=== PATIENT | male | born 1945 | race Caucasian/White ===

== ENCOUNTER → 2018-04-05 12:48 | Outpatient (CLI) | payer MEDICARE, OTHER, SELFPAY ==
--- NOTE | 2018-04-05 12:52 | CDU_ITS ---
Reason For Study: Visual disturbance Rt. Velocities/BP Lt. Velocities/BP Prox CCA 103.0/18.8 cm/sec. Prox CCA 90.9/21.7 cm/sec. Mid CCA 89.1/17.0 cm/sec. Mid CCA 95.0/19.9 cm/sec. Dist CCA 84.4/18.2 cm/sec. Dist CCA 90.3/21.7 cm/sec. Prox ICA 74.5/24.6 cm/sec. Prox ICA 73.9/23.5 cm/sec. Mid ICA 61.9/19.9 cm/sec. Mid ICA 92.0/28.7 cm/sec. Dist ICA 84.8/25.3 cm/sec. Dist ICA 103.0/39.9 cm/sec. Rt. ICA/CCA = .95. Lt. ICA/CCA = 1.1. Prox ECA 143.0/19.6 cm/sec. Prox ECA 120.0/14.1 cm/sec. Rt. Vert. 59.8/18.2 cm/sec. Lt. Vert. 60.4/19.9 cm/sec. Right Extracranial There is intimal thickening but no significant atherosclerotic plaque noted in the right common carotid artery. There is intimal thickening but no significant atherosclerotic plaque noted in the right internal carotid artery. There is no significant atherosclerotic plaque noted in the right external carotid artery. Antegrade flow is noted in the right vertebral artery. There is heterogeneous, irregular atherosclerotic plaque noted in the right bulb. Left Extracranial There is intimal thickening but no significant atherosclerotic plaque noted in the left common carotid artery. There is heterogeneous, irregular atherosclerotic plaque noted in the left internal carotid artery. There is intimal thickening but no significant atherosclerotic plaque noted in the left external carotid artery. Antegrade flow is noted in the left vertebral artery. Procedure Carotid Duplex [id number]. Exam performed in department. Interpretation Summary No significant atherosclerotic plaque or stenosis noted in the right internal carotid artery. Mild (<50%) stenosis left extracranial internal carotid. Flow within the vertebral arteries is antegrade bilaterally. A small amount of heterogeneous, irregular atherosclerotic plaque is noted in the right carotid bulb, which does not appear to be hemodynamically significant. Ordering Physician: Zeke Houser Referring Physician: Zeke Houser Performed By: Mirtha Villanueva RVT
== END ==
PROVIDERS: Family Provider Nurse Practitioner; PCP Nurse Practitioner; Visit Provider Ophthalmology
DX: H53.10 Unspecified subjective visual disturbances (principal); H53.15 Visual distortions of shape and size
CPT/HCPCS: 93880

== ENCOUNTER → 2018-05-12 07:03 | Outpatient (CLI) | payer MEDICARE, OTHER, SELFPAY ==
--- NOTE | 2018-05-12 07:07 | CT_ITS ---
STUDY: CT CHEST WITHOUT CONTRAST REASON FOR EXAM: Male, 73 years old. RT LUNG MASS RADIATION DOSAGE (If Supplied By Facility): CTDIvol = ( 14.28 ) mGy, DLP = ( 528.02 ) mGycm TECHNIQUE: Transaxial imaging was performed without the administration of intravenous contrast material. Individualized dose optimization techniques were used for this CT. COMPARISON: 04.17.15 FINDINGS: There is no pneumothorax. The lungs are normal. There is no demonstrated pleural abnormality. There are calcifications of the coronary arteries. Normal mediastinum. There are degenerative changes of the shoulders. Stable mediastinal lymph node calcification. Normal pulmonary arteries. There is atherosclerotic calcification of the aortic arch with tortuosity and elongation of the aortic arch and descending thoracic aorta. There are multi-level degenerative changes of the thoracic spine. Benign stable appearing calcifications of the spleen. CT/Chest without Contrast IMPRESSION: There are no acute findings. Lung mass is not visualized. Electronically Signed: Peter Martell MD at 19:53 EDT , Service support ,
== END ==
PROVIDERS: Family Provider Nurse Practitioner; PCP Nurse Practitioner; Visit Provider Nurse Practitioner
DX: R91.1 Solitary pulmonary nodule (principal)
CPT/HCPCS: 71250

== ENCOUNTER 2018-07-19 13:00 | Outpatient (RCR) | payer MEDICARE, OTHER, SELFPAY ==
--- NOTE | 2018-06-26 16:37 | HP.PTEVAL_ITS ---
Patient's Visit Information ANGELA TAYLOR is a 73 year old M referred to Physical Therapy by MELVIN MORA with a diagnosis of Dizziness and giddiness.. Date of Evaluation: 06/26/18 Physical Therapist: Alber Rowe DPT, OC - Visit Plan Frequency: 1x/Week Duration: 4-6 Weeks Plan: Weekly for adaptation progression and monitor positional/MSQ if needed. - Subjective Subjective: Has been here before for back pain. Was moving a lot of boxes over the weekend and flared it up. However, he is here for plugged up eustachian tube. Seen ENT and they cannot help him. He got vertigo about a year ago when out with friends. Has seen ENT for years but they cannot help him. Has been put on antivert and meclizine in the past and has been asked to delete salt from his diet. Neither of these has helped much. May 09 Dr. Mora did outpatient eustachian surgery which went well a [facility]. This cleared up the blockage for 10 days. Pt feels like is is a low grade infection. Carbs, sweets and dairy seem to make it worse. The vertigo is irregular. Comes and goes. Often gets it upon standing. Gets wobbly for a few seconds. Not spinning but unsteady. Lasts a few seconds. If can clear L ear with pressure it seems to help. Runs low on blood pressure anyway. Has had incidents wher he needs to grab an arm while walking. Has a cane that he uses sometimes over the last couple years. Rolling in bed and bending are not a problem with unsteady or dizzyness. Enjoys collecting coins. Also reading. No falls. Exercises just walking but not often. - Objective Oculomotor: pursuit and saccades are normal. Convergence is OK. - skew eye deviation. VOR slightly worse feelign after 30 sec, vertical is the same. VORX2 SAME SYMPTOMS. See balance below. Pt did not want positional tests today due to back pain with too much movement. - Balance Scores Functional Gait Assessment Score: 30 % Disability: 0 CATSIB Score (Max score 120 seconds): 98 - Goals Goal 1:: Abolish feeling of dizzyness for 1 week Goal Time Frame: 4-6 Weeks Goal 2:: VORx2 without symptoms. Goal Time Frame: 4-6 Weeks Goal 3:: Pt feel 75% back to normal and score 10% disability on DHI Goal Time Frame: 4-6 Weeks - Rehabilitation Potential Physical Therapy Diagnosis: dizzyness/feeling unsteady. Rehabilitation Potential: Fair - Anticipated Interventions Patient/Client Instruction: Educate patient on: Condition, Plan of Care For the Purpose of:: To increase tolerance to activity/condition/position Comment: adaptation adn habituation For the Purpose of:: To increase tolerance to activity/condition/position Thank you for the opportunity to evaluate your patient. For Medicare and Medicare HMO plans, please review the plan of care and approve it. It will need to be FAXED BACK to us at [phone] for Medicare purposes. Please let me know if there are questions or concerns regarding this plan of care. Physician Signature: Date:
--- NOTE | 2018-07-19 13:30 | HP.PTDCSUM_ITS ---
HP - PT D/C Summary It has been my pleasure to treat ANGELA TAYLOR under orders from MELVIN MORA , for the diagnosis of Dizziness and giddiness. for a total of 4 visit(s). Discharge Date: 07/19/18 Please see the following information for a summary of their discharge status. - Subjective Subjective: doing OK. Using metronmome to do ex. Getting better with iphone metronome but gets slight symptoms at 30 seconds. L tube still plugged and doesn't believe he will improve until it is. doesn't get dizzy when gets up from a chair. To doctor next week. Definitely doing better. Ear still being plugged is main symptom. Feels like room closing in, no spinning. - Overall Improvement % Improvement: 95 - Objective Objective/Function: Overall getting up and moving is 95% better, can't get over L ear being plugged. FGA is good and no symptoms with VORx2 today. - Goals Goal 1:: Abolish feeling of dizzyness for 1 week Goal Progress: Goal Met Goal 2:: VORx2 without symptoms. Goal Progress: Goal Met Goal 3:: Pt feel 75% back to normal and score 10% disability on DHI Goal Progress: Progressing - Plan Plan: D/C - D/C Information Discharge Comments: back to doctor next week. Pt still frustrated with stuffy feeling in L ear and thinks it is fungal. If there are questions or concerns regarding this patient's physical therapy, please feel free to call me at [phone]. Thank you for the referral of this patient. Sincerely, Alber Rowe, DPT, OC
== END 2018-07-19 19:00 | disposition home or self-care (01) ==
LOC: PT 13:00
PROVIDERS: Family Provider Nurse Practitioner; PCP Nurse Practitioner
DX: R42 Dizziness and giddiness (principal)
CPT/HCPCS: 97110; 97162; 97530

== ENCOUNTER → 2018-07-27 07:25 | Outpatient (CLI) | payer MEDICARE, OTHER, SELFPAY ==
--- NOTE | 2018-07-27 07:28 | CT_ITS ---
STUDY: CT MAXILLOFACIAL SINUSES REASON FOR EXAM: Male, 73 years old. Sinusitis. RADIATION DOSAGE (If Supplied By Facility): CTDIvol = ( 33.06 ) mGy, DLP = ( 842.11 ) mGycm TECHNIQUE: The patient was scanned in a multi detector CT scanner. High resolution axial imaging was performed without the administration of intravenous contrast material. Sagittal and coronal images were reconstructed. Individualized dose optimization techniques were used for this CT. COMPARISON: None. FINDINGS: FRONTAL SINUSES: Normal aeration, without mucosal inflammatory disease. ETHMOIDAL SINUSES: Normal aeration, without mucosal inflammatory disease. MAXILLARY SINUSES: Normal aeration, without mucosal inflammatory disease. SPHENOIDAL SINUSES: Normal aeration, without mucosal inflammatory disease. There is patency of the bilateral maxillary infundibuli with normal uncinate processes, ethmoid bullae, and hiatus semilunaris. There is mild hypertrophy of the middle and inferior nasal turbinates. There is a mild left sided nasal septal deviation, but without a nasal septal spur. There is patency of the bilateral nasal airways. The visualized osseous structures are normal. The visualized bilateral orbital contents are normal. CT/Sinus/Facial Bone IMPRESSION: No evidence of sinusitis. Electronically Signed: Jon Walker MD at 2:10 EDT Tel , Service support ,
== END ==
PROVIDERS: Family Provider Nurse Practitioner; PCP Nurse Practitioner
DX: J32.0 Chronic maxillary sinusitis (principal); J30.1 Allergic rhinitis due to pollen
CPT/HCPCS: 70486

== ENCOUNTER → 2018-10-17 09:38 | Outpatient (CLI) | payer MEDICARE, OTHER, SELFPAY ==
--- NOTE | 2018-10-17 09:45 | RAD_ITS ---
STUDY: X-RAY - LEFT KNEE REASON FOR EXAM: Male, 73 years old. Chronic pain. TECHNIQUE: 4 view(s) of the knee. COMPARISON: None. FINDINGS: Normal visualized distal femur. Normal visualized proximal tibia and fibula. Normal proximal tibiofibular articulation. There is no acute fracture, dislocation or destructive osseous pathology. There is moderate degenerative arthrosis of the medial femorotibial compartment with moderate joint space narrowing. There is moderate degenerative arthrosis of the lateral femorotibial compartment with moderate joint space narrowing. There is severe degenerative arthrosis of the patellofemoral articulation. There is no demonstrated joint effusion. There are atherosclerotic calcifications. 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 Electronically Signed: Coleman Robert DO at 22:20 EST Tel [phone], Service support ,
--- OUTSIDE RECORDS SUMMARY | 2018-12-03 09:02 | XMS RPT_ITS ---
:1945 Author Organization OHIP Support Name Relationship Address Phone KATRINA TAYLOR Unavailable [address] + [address] [place] [address] R Unavailable Unavailable Unavailable BRANDON KATRINA Unavailable [address] + [address] [place] [address] R Unavailable Unavailable Unavailable SRIRAM TAYLOREN Unavailable [address] + [address] [place] [address] R Unavailable Unavailable Unavailable BRANDON KATRINA Unavailable [address] + [address] [place] [address] R Unavailable Unavailable Unavailable BRANDON KATRINA Unavailable [address] + [address] [place] [address] R Unavailable Unavailable Unavailable BRANDON KATRINA Unavailable [address] + [address] [place] [address] R Unavailable Unavailable Unavailable SRIRAM TAYLOREN Unavailable Unavailable + BRANDONSRIRAMEN Unavailable Unavailable Unavailable BRANDON KATRINA Unavailable [address] + [address] [place] [address] R Unavailable Unavailable Unavailable BRANDON KATRINA Unavailable Unavailable + SHANNON TAYLOR Unavailable Unavailable Unavailable ANGELA TAYLOR Unavailable Unavailable Unavailable BRANDONSRIRAMEN Unavailable Unavailable + SHANNON TAYLOR Unavailable Unavailable Unavailable ANGELA TAYLOR Unavailable Unavailable Unavailable Care Team Providers Name Role Phone Zeke Houser Attending Unavailable Zeke Houser Referring Unavailable Elva Nascimento Primary Care Unavailable Elva Nascimento Attending Unavailable Elva Nascimento Referring Unavailable Elva Nascimento Primary Care Unavailable Elva Nascimento Attending Unavailable Elva Nascimento Referring Unavailable Elva Nascimento Primary Care Unavailable Elva Nascimento Attending Unavailable Elva Nascimento Referring Unavailable Elva Nascimento Primary Care Unavailable Ciesa, Elva Attending Unavailable Elva Nascimento Referring Unavailable Elva Nascimento Primary Care Unavailable SYLVIA BRAVO Attending Unavailable SYLVIA BRAVO Referring Unavailable Elva Nascimento Primary Care Unavailable SYLVIA BRAVO Attending Unavailable SYLVIA BRAVO Referring Unavailable Elva Nascimento Primary Care Unavailable ALEE PATEL Primary Care Unavailable STINO, LIZO Attending Unavailable STINO, AMRO Referring Unavailable STINO, AMRO Attending Unavailable BONEFANY ALEE M Referring Unavailable BONELUZ MARINAI ALEE M Primary Care Unavailable JUDD LEVY Attending Unavailable ELVA NASCIMENTO E (STRIP CLEANER) Referring Unavailable Cameron, Renee J Admitting Unavailable Cameron, Renee J Attending Unavailable Sulove, Saksham Primary Care Unavailable Cameron, Renee J Admitting Unavailable Cameron, Renee J Attending Unavailable Sulove, Saksham Primary Care Unavailable Edi Jeong Admitting Unavailable Edi Jeong Attending Unavailable Sulove, Saksham Primary Care Unavailable Elva Nascimento Attending Unavailable Alee Patel MD Referring Unavailable Elva Nascimento Consulting Unavailable EDI JEONG Admitting Unavailable EDI JEONG Attending Unavailable ABBY EDI C Primary Care Unavailable PROBLEMS PROBLEMS DATE TYPE CONDITION / CODE ATTENDING STATUS SOURCE 11/17/2018 Unknown Z12.31 - Encounter Elva Nascimento Active [facility] for screening [facility] mammogram for Hospital malignant neoplasm Repository of breast / Z12.31(ICD-10) 11/17/2018 Unknown R92.8 - Other Elva Nascimento Active [facility] abnormal and Community inconclusive Hospital findings on Repository diagnostic imaging of breast / R92.8(ICD-10) 07/20/2018 Unknown R42 - Dizziness SYLVIA BRAVO Active [facility] and giddiness / Community R42(ICD-10) Hospital Repository 04/05/2018 Unknown H53.10 - Corrina Active [facility] Unspecified [facility] visual Hospital disturbances / Repository H53.10(ICD-10) 12/27/2017 Admitting Follow-up / 145() STIRIKA, LIZO Active [facility] Repository PROCEDURES PROCEDURES No Procedure Records FoundRESULTS RESULTS BREAST LIMITED Observed: 11/17/2018 Status: F Source: [facility] UNILATERAL 8:57 AM [facility] REPOSITORY [facility] Imaging Services [address] [place] [address] Breast Limited Unilateral MR#: [id number] Acct: [id number] Name: ANGELA TAYLOR Rep #: [id number] : 1945 M 73 From: Yordan Lamb MD PCP: Elva Nascimento NP Status: REG CLI Study: Breast Limited Unilateral Date of Exam: 11/17/18 Exam# [id number] Ordering Dr: Elva Nascimetno STRIP CLEANER-C STUDY: ULTRASOUND BREAST - LEFT REASON FOR EXAM: Male, 73 years old. Palpable lump left breast. TECHNIQUE: Axial and longitudinal images of the LEFT breast were performed with a high resolution ultrasound transducer. COMPARISON: Comparison is made with prior mammogram done earlier today. FINDINGS: LEFT Breast: There is a 1.7 cm x 0.8 cm x 0.6 cm lymph node at the 1:00 position of the breast at 8 cm from nipple. There is also evidence of a 9 mm x 5 mm x 4 mm lymph node deep in the axillary region. US/Breast Limited Unilateral IMPRESSION: 1.7 cm x 0.8 cm x 0.6 cm lymph node at the 1:00 position of breast at 8 cm from nipple. ASSESSMENT CATEGORY: BIRADS Category 2: Benign. A letter regarding these results will be sent to the patient by the facility within 30 days. Electronically Signed: Yordan Lamb MD at 12:36 EST Tel [phone], Service support , CC: Elva Nascimento NP Child Welfare Manager: Signed DIAG MAMM W/CAD, Observed: 11/17/2018 Status: F Source: [place] BIL 8:55 AM [facility] REPOSITORY [facility] Imaging Services [address] [place] [address] DIAG MAMM W/CAD, BILAT MR#: [id number] Acct: [id number] Name: ANGELA TAYLOR Rep #: [id number] : 1945 M 73 From: Yordan Lamb MD PCP: Elva Nascimento NP Status: REG CLI Study: DIAG MAMM W/CAD, BILAT Date of Exam: 11/17/18 Exam# [id number] Ordering Dr: Elva Nascimento STRIP CLEANER-C MAMMOGRAPHY - BILATERAL DIAGNOSTIC REASON FOR EXAM: Male, 73 years old. Left axillary pain and palpable abnormality. PERTINENT HISTORY: Non-contributory. TECHNIQUE: Digital bilateral breast kari (3D mammographic acquisition) in the CC and MLO projections. 2-D mediolateral oblique (MLO) and craniocaudad (CC) views of both breasts were obtained. CAD: Full Field Digital Mammography with Computer Added Detection was performed. COMPARISON: None. Baseline examination. FINDINGS: Breast Composition: The breasts are almost entirely fatty. There are no dominant masses or suspicious calcifications. No other significant abnormalities are identified. BI/DIAG MAMM W/CAD, BILAT IMPRESSION: Negative diagnostic mammogram. With the patient's history of a palpable abnormality in the left axillary region, correlation with ultrasound is recommended. ASSESSMENT CATEGORY: BIRADS Category 0: Incomplete. Need additional imaging evaluation. A letter regarding these results will be sent to the patient by the facility within 30 days. Approximately 10% of breast cancers are not detected by mammography. A normal mammogram should not delay biopsy of a clinically suspicious abnormality. Electronically Signed: Yordan Lamb MD at 10:13 EST Tel [phone], Service support , CC: Elva Nascimento NP Child Welfare Manager: Signed CREATININE FINGERSTICK Collected: 10/27/2018 Status: F Source: [place] 4:56 PM [facility] REPOSITORY TYPE CODE TESTS RESULT OUT OF RANGE REFERENCE UNITS LAB L9100.0210 0.70-1.30 mg/dL Normal CREATININE WB 0.8 LAB L9100.0220 >60 mL/min EGFR WB Normal > 60.0000 Performed By: #### L9100.0200 #### [facility] Point of Care [address] [facility] [place] [address] ABDOMEN/PELVIS WITH Observed: 10/27/2018 Status: F Source: [place] CONTRAST 2:49 PM [facility] REPOSITORY [facility] Imaging Services [address] [place] [address] Abdomen/Pelvis WITH Contrast MR#: [id number] Acct: [id number] Name: ANGELA TAYLOR Rep #: [id number] : 1945 M 73 From: López Vaughn MD PCP: Elva Nascimento NP Status: REG CLI Study: Abdomen/Pelvis WITH Contrast Date of Exam: 10/27/18 Exam# [id number] Ordering Dr: Elva Nascimento STRIP CLEANER-C STUDY: CT ABDOMEN AND PELVIS WITH CONTRAST REASON FOR EXAM: Male, 73 years old. Right lower quadrant pain. RADIATION DOSAGE (If Supplied By Facility): CTDIvol = ( 16.86 ) mGy, DLP = ( 1091.10 ) mGycm TECHNIQUE: Transaxial images were obtained from the dome of the diaphragm to the symphysis pubis with oral contrast. 100mL ml of Isovue 300 contrast was administered. Sagittal and coronal images were reconstructed. Individualized dose optimization techniques were used for this CT. COMPARISON: 07/01/2016. FINDINGS: The visualized lung bases are unremarkable. The visualized portions of the heart are within normal limits. Normal liver. Scattered calcified granulomas are seen. Normal gallbladder and extrahepatic biliary system. There are multiple benign calcified granulomata of the spleen. Normal pancreas. Normal bilateral adrenal glands. Normal right kidney. Normal left kidney. Normal visualized stomach. Normal small intestine. There are multiple colonic diverticula consistent with diverticulosis. The appendix is visualized and appears normal. There is diffuse atherosclerotic calcification of the abdominal aorta with elongation and tortuosity, but without a demonstrated aneurysm. Normal inferior vena cava. Normal retroperitoneum. Normal urinary bladder. There is enlargement of the prostate gland. Bilateral small fat-containing inguinal hernias. There are diffuse degenerative changes of the visualized lumbar spine. CT/Abdomen/Pelvis WITH Contrast IMPRESSION: No definite acute abnormalities are seen. Electronically Signed: López Vaughn MD at 17:26 EST , Service support , CC: Elva Nascimento NP Child Welfare Manager: Signed KNEE 4 OR MORE Observed: 10/17/2018 Status: F Source: [place] Osmopure 9:42 AM [facility] REPOSITORY [facility] Imaging Services [address] [place] [address] Knee 4 or More Views MR#: [id number] Acct: [id number] Name: ANGELA TAYLOR Rep #: [id number] : 1945 M 73 From: Coleman Robert DO PCP: Elva Nascimento NP Status: REG CLI Study: Knee 4 or More Views Date of Exam: 10/17/18 Exam# [id number] Ordering Dr: Elva Nascimento STRIP CLEANER-C STUDY: X-RAY - LEFT KNEE REASON FOR EXAM: Male, 73 years old. Chronic pain. TECHNIQUE: 4 view(s) of the knee. COMPARISON: None. FINDINGS: Normal visualized distal femur. Normal visualized proximal tibia and fibula. Normal proximal tibiofibular articulation. There is no acute fracture, dislocation or destructive osseous pathology. There is moderate degenerative arthrosis of the medial femorotibial compartment with moderate joint space narrowing. There is moderate degenerative arthrosis of the lateral femorotibial compartment with moderate joint space narrowing. There is severe degenerative arthrosis of the patellofemoral articulation. There is no demonstrated joint effusion. There are atherosclerotic calcifications. 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 Electronically Signed: Coelman Robert DO at 22:20 EST Tel [phone], Service support , CC: Elva Nascimento NP Child Welfare Manager: Signed SINUS/FACIAL BONE Observed: 07/27/2018 Status: F Source: [place] 7:28 AM [facility] REPOSITORY [facility] Imaging Services [address] [place] [address] Sinus/Facial Bone MR#: [id number] Acct: [id number] Name: ANGELA TAYLOR Rep #: [id number] : 1945 M 73 From: Jon Walker MD PCP: Evla Nascimento NP Status: REG CLI Study: Sinus/Facial Bone Date of Exam: 07/27/18 Exam# [id number] Ordering Dr: EDI JEONG STUDY: CT MAXILLOFACIAL SINUSES REASON FOR EXAM: Male, 73 years old. Sinusitis. RADIATION DOSAGE (If Supplied By Facility): CTDIvol = ( 33.06 ) mGy, DLP = ( 842.11 ) mGycm TECHNIQUE: The patient was scanned in a multi detector CT scanner. High resolution axial imaging was performed without the administration of intravenous contrast material. Sagittal and coronal images were reconstructed. Individualized dose optimization techniques were used for this CT. COMPARISON: None. FINDINGS: FRONTAL SINUSES: Normal aeration, without mucosal inflammatory disease. ETHMOIDAL SINUSES: Normal aeration, without mucosal inflammatory disease. MAXILLARY SINUSES: Normal aeration, without mucosal inflammatory disease. SPHENOIDAL SINUSES: Normal aeration, without mucosal inflammatory disease. There is patency of the bilateral maxillary infundibuli with normal uncinate processes, ethmoid bullae, and hiatus semilunaris. There is mild hypertrophy of the middle and inferior nasal turbinates. There is a mild left sided nasal septal deviation, but without a nasal septal spur. There is patency of the bilateral nasal airways. The visualized osseous structures are normal. The visualized bilateral orbital contents are normal. CT/Sinus/Facial Bone IMPRESSION: No evidence of sinusitis. Electronically Signed: Jon Walker MD at 2:10 EDT Tel , Service support , CC: Elva Nascimento STRIP CLEANER; EDI JEONG Child Welfare Manager: Signed PT D/C SUMMARY (1) Observed: 07/20/2018 Status: F Source: [place] 8:21 AM [facility] REPOSITORY [facility] [address] [place] [address]. [address] [place] [address] Fax REHABILITATION SERVICES DISCHARGE SUMMARY MR#: [id number] Acct: [id number] Name: ANGELA TAYLOR Rep #: [id number] : 1945 73 From: Alber Rowe DPT, OCS, CSCS Referring DrKeshav: Status: REG RCR Insurance: MEDICARE PART A B [employer] HP - PT D/C Summary It has been my pleasure to treat ANGELA TAYLOR under orders from EDI JEONG, for the diagnosis of Dizziness and giddiness. for a total of 4 visit(s). Discharge Date: 07/19/18 Please see the following information for a summary of their discharge status. - Subjective Subjective: doing OK. Using metronmome to do ex. Getting better with iphone metronome but gets slight symptoms at 30 seconds. L tube still plugged and doesn't believe he will improve until it is. doesn't get dizzy when gets up from a chair. To doctor next week. Definitely doing better. Ear still being plugged is main symptom. Feels like room closing in, no spinning. - Overall Improvement % Improvement: 95 - Objective Objective/Function: Overall getting up and moving is 95% better, can't get over L ear being plugged. FGA is good and no symptoms with VORx2 today. - Goals Goal 1:: Abolish feeling of dizzyness for 1 week Goal Progress: Goal Met Goal 2:: VORx2 without symptoms. Goal Progress: Goal Met Goal 3:: Pt feel 75% back to normal and score 10% disability on DHI Goal Progress: Progressing - Plan Plan: D/C - D/C Information Discharge Comments: back to doctor next week. Pt still frustrated with stuffy feeling in L ear and thinks it is fungal. If there are questions or concerns regarding this patient's physical therapy, please feel free to call me at [phone]. Thank you for the referral of this patient. Sincerely, Alber Rowe DPT, OC <Electronically signed by NICOLE Ferguson DPT, CSCS> 07/20/18 0821 CC: Elva Nascimento STRIP CLEANER; OUT OF TOWN DOCTOR EBG Signed INITAL EVALUATION (1) Observed: 06/27/2018 Status: F Source: [place] - PT 9:17 AM [facility] REPOSITORY [facility] [address] [place] [address]. [address] [place] [address] Fax REHABILITATION SERVICES INITIAL EVALUATION MR#: [id number] Acct: [id number] Name: ANGELA TAYLOR Rep #: [id number] : 1945 73 From: NICOLE Ferguson DPT, CSCS Referring DrKeshav: Status: REG RCR Insurance: MEDICARE PART A B [employer] Patient's Visit Information ANGELA TAYLOR is a 73 year old M referred to Physical Therapy by EDI JEONG with a diagnosis of Dizziness and giddiness.. Date of Evaluation: 06/26/18 Physical Therapist: Alber Rowe DPT, OC - Visit Plan Frequency: 1x/Week Duration: 4-6 Weeks Plan: Weekly for adaptation progression and monitor positional/MSQ if needed. - Subjective Subjective: Has been here before for back pain. Was moving a lot of boxes over the weekend and flared it up. However, he is here for plugged up eustachian tube. Seen ENT and they cannot help him. He got vertigo about a year ago when out with friends. Has seen ENT for years but they cannot help him. Has been put on antivert and meclizine in the past and has been asked to delete salt from his diet. Neither of these has helped much. May 09 Dr. Jeong did outpatient eustachian surgery which went well a [facility]. This cleared up the blockage for 10 days. Pt feels like is is a low grade infection. Carbs, sweets and dairy seem to make it worse. The vertigo is irregular. Comes and goes. Often gets it upon standing. Gets wobbly for a few seconds. Not spinning but unsteady. Lasts a few seconds. If can clear L ear with pressure it seems to help. Runs low on blood pressure anyway. Has had incidents wher he needs to grab an arm while walking. Has a cane that he uses sometimes over the last couple years. Rolling in bed and bending are not a problem with unsteady or dizzyness. Enjoys collecting coins. Also reading. No falls. Exercises just walking but not often. - Objective Oculomotor: pursuit and saccades are normal. Convergence is OK. - skew eye deviation. VOR slightly worse feelign after 30 sec, vertical is the same. VORX2 SAME SYMPTOMS. See balance below. Pt did not want positional tests today due to back pain with too much movement. - Balance Scores Functional Gait Assessment Score: 30 % Disability: 0 CATSIB Score (Max score 120 seconds): 98 - Goals Goal 1:: Abolish feeling of dizzyness for 1 week Goal Time Frame: 4-6 Weeks Goal 2:: VORx2 without symptoms. Goal Time Frame: 4-6 Weeks Goal 3:: Pt feel 75% back to normal and score 10% disability on DHI Goal Time Frame: 4-6 Weeks - Rehabilitation Potential Physical Therapy Diagnosis: dizzyness/feeling unsteady. Rehabilitation Potential: Fair - Anticipated Interventions Patient/Client Instruction: Educate patient on: Condition, Plan of Care For the Purpose of:: To increase tolerance to activity/condition/position Comment: adaptation adn habituation For the Purpose of:: To increase tolerance to activity/condition/position Thank you for the opportunity to evaluate your patient. For Medicare and Medicare HMO plans, please review the plan of care and approve it. It will need to be FAXED BACK to us at [phone] for Medicare purposes. Please let me know if there are questions or concerns regarding this plan of care. Physician Signature: Date: <Electronically signed by Alber Rowe DPT, OCS, CSCS> 06/27/18 0917 CC: Elva Nascimento NP; OUT OF TOWN DOCTOR EBG Signed For Medicare only, by signing this I certify the plan of care. Physicians Signature Date CHEST WITHOUT Observed: 05/12/2018 Status: F Source: [place] CONTRAST 7:07 AM [facility] REPOSITORY [facility] Imaging Services [address] [place] [address] Chest without Contrast MR#: [id number] Acct: [id number] Name: ANGELA TAYLOR Rep #: [id number] : 1945 M 73 From: Peter Martell MD PCP: Elva Nascimento NP Status: REG CLI Study: Chest without Contrast Date of Exam: 05/12/18 Exam# [id number] Ordering Dr: Elva Nascimento STUDY: CT CHEST WITHOUT CONTRAST REASON FOR EXAM: Male, 73 years old. RT LUNG MASS RADIATION DOSAGE (If Supplied By Facility): CTDIvol = ( 14.28 ) mGy, DLP = ( 528.02 ) mGycm TECHNIQUE: Transaxial imaging was performed without the administration of intravenous contrast material. Individualized dose optimization techniques were used for this CT. COMPARISON: 04.17.15 FINDINGS: There is no pneumothorax. The lungs are normal. There is no demonstrated pleural abnormality. There are calcifications of the coronary arteries. Normal mediastinum. There are degenerative changes of the shoulders. Stable mediastinal lymph node calcification. Normal pulmonary arteries. There is atherosclerotic calcification of the aortic arch with tortuosity and elongation of the aortic arch and descending thoracic aorta. There are multi-level degenerative changes of the thoracic spine. Benign stable appearing calcifications of the spleen. CT/Chest without Contrast IMPRESSION: There are no acute findings. Lung mass is not visualized. Electronically Signed: Peter Martell MD at 19:53 EDT , Service support , CC: Elva Nascimento NP Child Welfare Manager: Signed OPERATIVE PROCEDURES Observed: 05/11/2018 Status: F Source: [facility] 10:20 AM [facility] OPERATIVE REPORT NAME ACCOUNT SEX AGE ADMIT DISCHARGE PT MED. RECORD# NUMBER DATE DATE TYPE BRANDON [id number] M 73 05/09/18 2 ANGELA James [id number] ROOM: [facility] DATE OF : 1945 DICTATING PHYSICIAN: Edi Jeong DATE OF SURGERY: May 09, 2018 SURGEON: Edi Jeong MD SERVICE WRITER: ANESTHESIOLOGIST: ANESTHETIC: PREOPERATIVE DIAGNOSES: (1) Eustachian tube dysfunction. (2) Otalgia. POSTOPERATIVE DIAGNOSES: (1) Eustachian tube dysfunction. (2) Otalgia. OPERATION PERFORMED: Endoscopic left Eustachian tube dilation. COMPLICATIONS: ESTIMATED BLOOD LOSS: INDICATIONS: The patient is a very pleasant 73-year-old male with a history of ear pain, pressure and fullness. Due to this, he has had some ongoing issues with vertigo associated with the pressure. He has been treated in the past with oral steroids and intranasal corticosteroids with no resolution. He decided at this point to proceed with dilation of the Eustachian tube opening for treatment of the symptoms. The risks and benefits of the treatment were discussed with the patient, and informed consent was obtained. FINDINGS: There was some swelling to the Eustachian tube on the left side. The right appeared essentially normal. DESCRIPTION OF OPERATION: After obtaining informed consent, the patient was taken to the operating room and placed in the supine position. General anesthesia was performed, and LMA was then placed per Anesthesia. Topical Afrin-soaked pledgets were then placed bilaterally into the nasopharynx anteriorly. After allowing adequate time for the local anesthetic vasoconstrictive properties to take effect, the Afrin-soaked Page 1 of 2 ANGELA TAYLOR Operative Report pledgets were removed. Using the 30-degree endoscope, we visualized into the right side. The Eustachian tube on this side appeared to be normal. We then visualized into the left nasopharynx using the 30-degree endoscope. The Eustachian tube opening was somewhat swollen. We then passed the Eustachian tube guide into the nasopharynx. The tip was placed into the Eustachian tube opening. The balloon was passed into the Eustachian tube without restriction. Once in proper position, it was blown up to 12 mmHg. It was held there for approximately 2 minutes. The balloon was then dropped down and removed without difficulty. The patient was then awakened, extubated, and taken to the recovery room in stable condition. Dictated By: Edi Jeong MD 05/09/18 11:54 JOB #: [id number] Transcribed By: bernice 05/09/18 12:44 Electronically signed by: E-Sign Dr. Edi Jeong MD 05/11/18 10:19 Page 2 of 2 ANGELA TAYLOR Operative Report XR CHEST 2 VIEWS Observed: 05/05/2018 Status: F Source: [facility] 4:05 PM [facility] REPOSITORY Exam Date/Time: 05/05/2018 16:09 EDT Reason for Exam: pre operative testing Report STUDY: XR Chest 2 Views; 05/05/2018 4:09 pm INDICATION: pre operative testing. COMPARISON: 08/12/2016 ACCESSION NUMBER(S): [id number] ORDERING CLINICIAN: Edi Jeong FINDINGS: PA and lateral views of the chest. Cardiomediastinal silhouette is normal size. No pulmonary consolidation, pleural effusion, or pneumothorax. No acute bony abnormality. Degenerative endplate changes throughout the thoracic spine. IMPRESSION: Nothing suspicious for acute cardiopulmonary disease. FINAL REPORT Dictated: 05/06/2018 7:40 am Leonel Gallagher MD Signed (Electronic Signature): 05/06/2018 7:40 am Signed by: Leonel Gallagher MD Technologist: [facility] CBC W/ AUTO DIFF Collected: 05/05/2018 Status: F Source: [facility] 3:49 PM [facility] REPOSITORY TYPE CODE TESTS RESULT OUT OF RANGE REFERENCE UNITS LAB [id number](L 3.6-11.0 E3/mcL OINC) Normal WBC 5.0 LAB 88190904(L 3.90-6.10 E6/mcL OINC) Normal RBC 5.27 LAB 78877632(L 13.5-18.0 G/DL OINC) Normal Hgb 14.9 LAB 07523366(L 42.0-52.0 % OINC) Normal Hct 44.5 LAB 89972934(L 11.5-14.5 % OINC) Normal RDW 13.6 LAB 76098240(L 27.0-31.0 pg OINC) Normal MCH 28.2 LAB 72220998(L 33.0-37.0 G/DL OINC) Normal MCHC 33.4 LAB 51735044(L 78.0-100.0 fL OINC) Normal MCV 84.5 LAB 52030036(L 7.4-11.0 fL OINC) Normal MPV 8.0 LAB 52412669(L 130-400 E3/mcL OINC) Normal Platelet 245 Performed By: #### [id number] #### FRANCISCO [employer] [address] [place] [address] AUTO DIFF Collected: 05/05/2018 Status: F Source: [facility] 3:49 PM [facility] REPOSITORY Order Comment: Order Added by Discern Expert. TYPE CODE TESTS RESULT OUT OF RANGE REFERENCE UNITS LAB 35162878(L 37.0-75.0 % OINC) Normal Neutro Auto 46.2 LAB 77258372(L 20.0-55.0 % OINC) Normal Lymph Auto 37.4 LAB 20599198(L 0.0-10.0 % OINC) High [place]oto Auto 11.5 LAB 69126990(L 0.0-11.0 % OINC) Normal Eos Auto 3.9 LAB 81892242(L 0.0-2.0 % OINC) Normal Basophil Auto 1.0 LAB 50516425(L 1.4-6.5 E3/mcL OINC) Normal Neutro 2.3 Absolute LAB 44610969(L 1.2-3.4 E3/mcL OINC) Normal Lymph Absolute 1.9 LAB 54814533(L 0.0-0.7 E3/mcL OINC) Normal Desoto Absolute 0.6 LAB 33044311(L 0.0-0.7 E3/mcL OINC) Normal Eos Absolute 0.2 LAB 85530878(L 0.0-0.2 E3/mcL OINC) Normal Basophil 0.0 Absolute Performed By: #### [id number] #### FRANCISCO Crews [facility] [place] [address] CMP Collected: 05/05/2018 Status: F Source: [facility] 3:49 PM [facility] REPOSITORY TYPE CODE TESTS RESULT OUT OF RANGE REFERENCE UNITS LAB 54201630(L 70-99 mg/dL OINC) High Glucose Lvl 140 LAB 45146014(L 8.4-10.2 mg/dL OINC) Calcium Normal Lvl 9.0 LAB 91295868(L 136-145 mEq/L OINC) Sodium Normal Lvl 136 LAB 60517633(L 3.5-5.1 mEq/L OINC) Normal Potassium Lvl 4.2 LAB 07908908(L 98-107 mEq/L OINC) Chloride Normal 99 LAB 29423117(L 24.0-30.0 mEq/L OINC) CO2 Normal 28.0 LAB 74618651(L 7-18 mg/dL OINC) BUN Normal 15 LAB 5509541(LO 0.6-1.3 mg/dL INC) Normal Creatinine 0.9 LAB 09252697(L 42-121 Int._Unit/ OINC) L Alk Phos Normal 48 LAB 03317223(L 0.2-1.0 mg/dL OINC) Bili Normal Total 1.0 LAB 81696770(L 3.2-5.0 G/DL OINC) Albumin Normal Lvl 4.5 LAB 96629038(L 6.4-8.3 G/DL OINC) Total Normal Protein 7.1 LAB 61716332(L 10-40 Int._Unit/ OINC) L ALT Normal 27 LAB 69934779(L 10-42 Int._Unit/ OINC) L AST Normal 25 LAB 45070050(L 5.4-30.0 ratio OINC) Normal BUN/Creat Ratio 16.7 LAB 60409184(L 2.0-4.0 G/DL OINC) Globulin Normal 2.6 LAB 97376599(L 1.1-1.9 ratio OINC) A/G Normal Ratio 1.7 Performed By: #### 5799091 #### FRANCISCO [facility] [address] [place] [address] EGFR Collected: 05/05/2018 Status: F Source: [facility] 3:49 PM [facility] REPOSITORY Order Comment: Order added by Discern Expert. TYPE CODE TESTS RESULT OUT OF RANGE REFERENCE UNITS LAB 13182808(LO mL/min/1.73 INC) m2 Normal eGFR >60 LAB 29490744(LO mL/min/1.73 INC) m2 Normal eGFR AA >60 Performed By: #### [id number] #### FRANCISCO [facility] [address] [place] [address] CAROTID DUPLEX Observed: 04/17/2018 Status: F Source: [facility] 7:56 PM [facility] REPOSITORY [facility] Cardiovascular Services [address] [place] [address] Carotid Duplex Ultrasound 04/05/18 1255 MR#: [id number] Acct: [id number] Name: ANGELA TAYLOR Rep #: [id number] : 1945 73 From: Vlad Walker MD Attending Dr: Zeke Houser MD Status: REG CLI Ordering Dr: Zeke Houser MD Date: 04/05/18 Location: [facility] Sex: M C Admitted: Reason For Study: Visual disturbance Rt. Velocities/BP Lt. Velocities/BP Prox CCA 103.0/18.8 cm/sec. Prox CCA 90.9/21.7 cm/sec. Mid CCA 89.1/17.0 cm/sec. Mid CCA 95.0/19.9 cm/sec. Dist CCA 84.4/18.2 cm/sec. Dist CCA 90.3/21.7 cm/sec. Prox ICA 74.5/24.6 cm/sec. Prox ICA 73.9/23.5 cm/sec. Mid ICA 61.9/19.9 cm/sec. Mid ICA 92.0/28.7 cm/sec. Dist ICA 84.8/25.3 cm/sec. Dist ICA 103.0/39.9 cm/sec. Rt. ICA/CCA = .95. Lt. ICA/CCA = 1.1. Prox ECA 143.0/19.6 cm/sec. Prox ECA 120.0/14.1 cm/sec. Rt. Vert. 59.8/18.2 cm/sec. Lt. Vert. 60.4/19.9 cm/sec. Right Extracranial There is intimal thickening but no significant atherosclerotic plaque noted in the right common carotid artery. There is intimal thickening but no significant atherosclerotic plaque noted in the right internal carotid artery. There is no significant atherosclerotic plaque noted in the right external carotid artery. Antegrade flow is noted in the right vertebral artery. There is heterogeneous, irregular atherosclerotic plaque noted in the right bulb. Left Extracranial There is intimal thickening but no significant atherosclerotic plaque noted in the left common carotid artery. There is heterogeneous, irregular atherosclerotic plaque noted in the left internal carotid artery. There is intimal thickening but no significant atherosclerotic plaque noted in the left external carotid artery. Antegrade flow is noted in the left vertebral artery. Procedure Carotid Duplex 89067. Exam performed in department. Interpretation Summary No significant atherosclerotic plaque or stenosis noted in the right internal carotid artery. Mild (<50%) stenosis left extracranial internal carotid. Flow within the vertebral arteries is antegrade bilaterally. A small amount of heterogeneous, irregular atherosclerotic plaque is noted in the right carotid bulb, which does not appear to be hemodynamically significant. Ordering Physician: Zeke Houser Referring Physician: Zeke Houser Performed By: Mirtha Villanueva RVT 04/17/181954 Date Vlad Walker MD CC: Elva Nascimento STRIP CLEANER; Zeke Houser MD Date Dictated: 04/05/18 1255 Date Transcribed: 04/17/181954 Child Welfare Manager: Signed XR SPINE CERVICAL 4 Observed: 02/22/2018 Status: F Source: [facility] OR 5 VIEWS 3:06 PM [facility] REPOSITORY Exam Date/Time: 02/22/2018 15:10 EDT Reason for Exam: neck pain Report CERVICAL SPINE 6 VIEWS: COMPARISON: None. HISTORY: Patient with neck pain. History of right neck problems, no known injury. FINDINGS: The vertebral bodies are anatomically aligned. No subluxation. No acute fracture. Severe disc space narrowing at C6-C7 and mild to moderate disc space narrowing in the remaining cervical spine. Prevertebral soft tissues are normal in thickness. No high-grade bony foraminal encroachment is appreciated on the oblique images. Visualized lung apices are clear of air space consolidation. IMPRESSION: 1. Negative for acute fracture or dislocation. 2. Severe degenerative disc disease at C6-C7 and mild to moderate degenerative disc disease in the remaining cervical spine. FINAL REPORT Dictated: 02/22/2018 4:32 pm Alber Kelley MD Signed (Electronic Signature): 02/22/2018 4:32 pm Signed by: Alber Kelley MD Technologist: [facility] THYROGLOBULIN ANTIBODY Collected: 12/20/2017 Status: F Source: [facility] 12:57 PM [facility] REPOSITORY TYPE CODE TESTS RESULT OUT OF REFERENCE UNITS RANGE LAB THYRAB <4.0 IU/mL Thyroglobulin Antibody <0.9 Performed By: #### THYRAB, KIKA, ANASR, ANCAB #### [facility] [place] [address] [place] [address] [place] [address] ANTI-TPO AB (MICROSOMAL Collected: 12/20/2017 Status: F Source: [facility] AB) 12:57 PM [facility] REPOSITORY TYPE CODE TESTS RESULT OUT OF RANGE REFERENCE UNITS LAB KIKA <35.0 IU/mL Anti-TPO <10.0 AB (Microsomal AB) Performed By: #### THYRAB, KIKA, ANASR, ANCAB #### [facility] [address] [place] [address] [facility] [address] [place] [address] ASHOK SCREEN W REFLEX Collected: 12/20/2017 Status: F Source: [facility] ABS, MULTIPLEX 12:57 PM [facility] REPOSITORY TYPE CODE TESTS RESULT OUT OF REFERENCE UNITS RANGE LAB ANARES Negative Negative ASHOK Screen, Multiplex LAB ANACOM This multiplexed COMMENT ASHOK screening detects the following autoantibodies (dsDNA, Sm, Sm/MULTIFOCAL BUTTON INSPECTOR, MULTIFOCAL BUTTON INSPECTOR, SS-A/Ro, SS-B/La, Adriana-1, Scl-70, Chromatin, Centromere B, and Ribosomal P). Result Comment: If the original order contained any of the individual antibodies ordered separately those would have been canceled as duplicate order. Performed By: #### THYRAB, KIKA, ANASR, ANCAB #### [facility] [address] [place] [address] [place] [address] [place] [address] ANCA INITIAL SCREEN Collected: 12/20/2017 Status: F Source: [facility] 12:57 PM [facility] REPOSITORY TYPE CODE TESTS RESULT OUT OF REFERENCE UNITS RANGE LAB ANCA Negative Neutrophil Cytoplasmic Antibod Negative LAB PR3AB Negative Proteinase 3 Antibodies Negative LAB MPO Negative Myeloperoxidase Antibodies Negative Performed By: #### THYRAB, KIKA, ANASR, ANCAB #### [facility] [address] [place] [address] [place] [address] ALLERGIES ALLERGIES DATE TYPE / CODE NAME / CODE REACTION SEVERITY SOURCE 08/29/2013 Drug No Known Unknown [place] [facility] Allergy/416 Allergies/E39137 Hospital 507993(SNOM 0388(RXNORM) Repository ED CT) 10/07/2009 DRUG GRASS POLLEN [facility] INGREDI/419 [place] 165385(SNOM Repository ED CT) 10/07/2009 DRUG MOLD [facility] INGREDI/419 [place] 833556(SNOM Repository ED CT) 10/07/2009 Environ/420 TREES [facility] 570919([facility] [place] [facility]) Repository Drug SULFA U Oswaldo [place] Allergy/416 (sulfonamide)/00 [facility] 622412(SNOM 118550(RXNORM) Repository ED CT) Drug QUINOLONES/40782 U Osw[place] [place] Allergy/416 217(RXNORM) [facility] 540177(SNOM Repository ED CT) Drug PREDNISONE/50425 U Osw[place] Allergy/416 521(RXNORM) [facility] 713892(SNOM Repository ED CT) Drug/149519 No Known Christian 003(SNOMED Allergies [facility] CT) System Repository Drug/065186 Cats ALLERGY Christian 003(SNOMED [facility] CT) System Repository Drug/691701 Dogs ALLERGY Christian 003(SNOMED [facility]) System Repository Drug/294451 Grass ALLERGY Christian 003(SNPredect [facility] CT) System Repository ENCOUNTERS ENCOUNTERS ADMIT/DISCHARGE ACCOUNT NUMBER ADMITTING ENCOUNTER LOCATION SOURCE CLASS 11/27/2018/11/27/19 [id number] Ambulatory [address] Repository 11/22/2018 [address] Ambulatory [facility] Repository 11/17/2018 [id number] [facility] ding:OPBI Repository 10/27/2018 [id number] [facility] ding:CT Repository 10/17/2018 [id number] [facility] ding:HPRAD Repository 07/27/2018 [id number] [facility] ding:CT Repository 07/19/2018/07/19/[id number] ding:PT Repository 05/12/2018 [id number] Ambulatory [facility] ding:CT Repository 05/09/2018/05/09/20 [id number] EDI JEONG Ambulatory [facility] 18 Room: [address] Repository 05/05/2018/05/05/20 [id number] Edi Jeong Ambulatory [address] ding:[facility] DEP Repository 05/05/[id number] Repository 04/07/2018/06/05/[id number] [place], Ambulatory Christian Christian [facility] ding:[facility] B Repository 04/07/2018 [id number] Ambulatory [address] [place] [address] Repository 04/05/2018 [id number] Ambulatory [facility] ding:[facility] Repository 02/22/2018/02/23/20 [id number] [place], Ambulatory [facility] ding:[facility] Repository 12/27/2017 [id number] Ambulatory Building:[facility] Repository 12/20/2017 [id number] [facility] PAYERS PAYERS ENCOUNTER GUARANTOR PAYER SUBSCRIBER SOURCE 11/22/2018 Angela M Primary Angela M OHIP Practices LittleDOB: Insurance:MedicarePoli LittleDOB: Repository [id number] cy Number: [id number] BOX Connie [id number] [address] [place] [address]Kmt: Date:1809-00-63Vzaf [place] [address]Bac: Name:[facility] Box (HP)Tel: [phone], [place] (HP) [phone] (MF) [address]WP: 11/22/2018 Secondary Angela M OHIP Practices Insurance:Humana/Suppl LittleDOB: Repository [facility] [id number] Number: LAVELLE Rosales [id number] [place] [address]Spp: Date:4046-76-59Hcdu ~(4 Name:[facility] [address] (HP) [address] [place] [address]TR: 11/22/2018 Tertiary Katrina A OHIP Practices Insurance:Medical LittleDOB: Repository [facility] [id number] Number: LAVELLE Rosales [id number] [place] [address]Ryn: Date: 0007-56-65Zmko Name:[facility] Box () [address] [place] [address] [id number]: 11/17/2018 ANGELA M Primary ANGELA M [place] [id number] Insurance:MEDICARE LITTLEDOB: Community [place] LNPO PART A BPolicy Number: [id number] Hospital [address] [place] [address], [id number] [place]ository [place] [address]Prr: Date:2018-11-02 () 11/17/2018 Secondary ANGELA M [place] Insurance:HUMANA LITTLEDOB: Community COMMERCIALPolicy [id number] Hospital Number: Repository [id number] Date:4735-40-73[address] [address]QQ: 11/17/2018 Tertiary NOT GIVENUNK Ly[place] Insurance:SELF PAY [facility] Number: Effective Repository Date:2018-11-02 10/27/2018 ANGELA M Primary ANGELA M [place] [id number] Insurance:MEDICARE LITTLEDOB: Community [place] LNPO PART A BPolicy Number: [id number] Hospital [address] [place] [address], [id number] [place]ository [place] [address]Chp: Date:2018-10-27 () 10/27/2018 Secondary ANGELA M [place] Insurance:HUMANA LITTLEDOB: [facility] [id number] Hospital Number: Repository [id number] Date:6870-10-92MQ [address] [place] [address]IP: 10/27/2018 Tertiary NOT GIVENUNK [place] Insurance:SELF PAY [facility] Number: Effective Repository Date:2018-10-27 10/17/2018 ANGELA M Primary ANGELA M [place] [id number] Insurance:MEDICARE LITTLEDOB: Community [place] LNPO PART A BPolicy Number: [id number] Hospital [address] [place] [address], [id number] Repository [place] [address]Fzs: Date:2018-10-17 () 10/17/2018 Secondary ANGELA M [place] Insurance:HUMANA LITTLEDOB: Community COMMERCIALPolicy [id number] Hospital Number: Repository [id number] Date:4480-18-61XZ [address] [place] [address]QO: 10/17/2018 Tertiary NOT GIVENUNK [place] Insurance:SELF PAY [facility] Hospital Number: Effective Repository Date:2018-10-17 07/27/2018 Angela M Primary ANGELA M [place] [id number] Insurance:MEDICARE LITTLEDOB: Community [place] LNPO PART A BPolicy Number: [id number] Hospital [address] [place] [address] [id number] Repository [place] [address]Kvl: Date:2018-07-24 () 07/27/2018 Secondary ANGELA M [place] Insurance:HUMANA LITTLEDOB: Community COMMERCIALPolicy [id number] Hospital Number: Repository [id number] Date:4145-65-[address] [address]IP: 07/27/2018 Tertiary NOT GIVENUNK [place] Insurance:SELF PAY [facility] Hospital Number: Effective Repository Date:2018-07-24 07/19/2018 Angela M Primary ANGELA M [place] [id number] Insurance:MEDICARE LITTLEDOB: Community [place] LNPO PART A BPolicy Number: [id number] Hospital [address] [place] [address] [id number] Repository [place] [address]Unz: Date:2009-03-07 () 07/19/2018 Secondary ANGELA M [place] Insurance:HUMANA LITTLEDOB: Community COMMERCIALPolicy [id number] Hospital Number: Repository [id number] Date:2275-43-67WM [address] [place] [address]XU: 07/19/2018 Tertiary NOT GIVENUNK [place] Insurance:SELF PAY [facility] Number: Effective Repository Date:2018-06-13 05/12/2018 Angela M Primary ANGELA M [place] [id number] Insurance:MEDICARE LITTLEDOB: Community [place] [address] PART A olicy Number: [id number] Hospital [address], [id number] [place]ository [place] [address]Oqf: Date:2018-04-26 (HP) 05/12/2018 Secondary ANGELA M [place] Insurance:HUMANA LITTLEDOB: [facility] [id number] Hospital Number: Repository [id number] Date:3418-44-22YX [address] [place] [address]RA: 05/12/2018 Tertiary NOT GIVENUNK [place] Insurance:SELF PAY [facility] Number: Effective Repository Date:2018-04-26 05/09/2018 ANGELA M Primary ANGELA Alvarado LITTLEDOB: Insurance:MEDICARE LITTLEDOB: [facility] [id number] [id number] Hospital [address] [place] [address], Number: [address], [place]ository [place] [id number] [place] [id number]: Date:Plan Name: () 05/09/2018 Secondary ANGELA Alvarado Insurance:HUMANA LITTLEDOB: [facility] MEDICARE ADVANTAGE [id number] [facility] [address] [place] [address], Repository Number: [place] [id number] Date:Plan Name: 05/05/2018 ANGELA M Primary ANGELA Duartearitan LITTLEDOB: Insurance:MedicarePoli LITTLEDOB: [facility] [id number] cy Number: Effective [id number] System [id number] Date:2018-05-05 - [facility] [id number] Repository [place] 1014-36-39[place], [place] Name:CD:[id number] [place] [address]Yii: 913259DTTXZDZVSP, [place] [address]Tka: [address]WP: (800) (HP) [phone] (HP) (WP) 05/05/2018 Secondary ANGELA M Christian Insurance:HUMANAPolicy LITTLEDOB: [facility] Number: Effective [id number] System Date:2018-05-05 - [address] Repository 9054-05-07Idgv [place] Name:CD:[id number] [address] [facility], [place] [address]PXFCUGNAX, [place] [address]Fdm: [phone]: [phone] (HP) (WP) 05/05/2018 [facility] Insurance:MedicarePoli LITTLEDOB: Hospitals [id number] cy Number: [id number] Repository [address], [id number] [address], [place] Date:Plan Name:[facility] A [place] [id number]: [phone]: (HP) (HP) 05/05/2018 Secondary [facility] Insurance:MedicarePoli LITTLEDOB: Hospitals cy Number: [id number] Repository [id number] [address], Date:Plan Name:[facility] B [place] [id number]: () 05/05/2018 Tertiary [facility] Insurance:[facility] LITTLEDOB: [facility] Number: [id number] Repository [id number] [address], Date:Plan Name:Health [place] [id number]: () 04/07/2018 ANGELA [facility]: Insurance:MedicarePoli LITTLEDOB: [facility] [id number] cy Number: Effective [id number] System [address] Date:2018-04-04 - [address] Repository [place] 5744-70-42Lxhz [place] Name:CD:[id number] [place] [address]Iot: [id number], [place] [address]Yzt: [phone]: [phone]) (HP) [phone] (HP) (WP) 04/07/2018 Secondary ANGELA Erika Sanchez Insurance:HUMANAPolicy LITTLEDOB: [facility] Number: Effective [id number] System Date:2018-04-04 - [address] Repository 6700-91-76Zsrj [place] Name:CD:[id number] [address] [address]Jjw: [id number]: [phone] (HP) (WP) 04/07/2018 ANGELA Primary [facility] LITTLEDOB: Insurance:MedicarePoli LITTLEDOB: [facility] [id number] cy Number: [id number] Repository [address] [place] [address], [id number] [address] [place] [address], [place] Date:Plan Name:[facility] A [place] [id number]: [id number]: () (HP) 04/07/2018 Secondary [facility] Insurance:MedicarePoli LITTLEDOB: [facility] cy Number: [id number] Repository [id number] [address] [place] [address], Date:Plan Name:[facility] B [place] [id number]: () 04/07/2018 Tertiary [facility] Insurance:ChoiceCare [facility]EDOB: [facility] Number: [id number] Repository [id number] [address], Date:Plan Name:Health [place] [id number]: () 04/05/2018 Angela M Primary ANGELA M Lyly [id number] Insurance:MEDICARE LITTLEDOB: [facility] PART A BPolicy Number: [id number] Hospital [address] [place] [address], [id number] [place]ository [place] [address]Lgy: Date:2018-03-24 () 04/05/2018 Secondary ANGELA M [place] Insurance:HUMANA LITTLEDOB: Community COMMERCIALPolicy [id number] Hospital Number: Repository [id number] Date:8597-00-30DO [address] [place] [address]HU: 04/05/2018 Tertiary NOT GIVENUNK [place] Insurance:SELF PAY [facility] Number: Effective Repository Date:2018-03-24 02/22/2018 ANGELA M Primary ANGELA M Christian LITTLEDOB: Insurance:MedicarePoli LITTLEDOB: [facility] [id number] cy Number: Effective [id number] System [id number] Date:2018-02-22 [address] Repository [facility] 4318-99-50Wopd [facility], Name:CD:[id number] [facility] [address]33332[place] [id number]: [phone]: [phone]: [phone] (HP)Tel: (000) (HP) [phone] (WP) 02/22/2018 Secondary ANGELA Sanchez Insurance:HUMANAPolicy LITTLEDOB: [facility] Number: Effective [id number] System Date:2018-02-22 [address] Repository [id number] [place] Name:CD:[id number] [address] [id number]: [id number]: [phone] (HP) (WP) 12/27/2017 ANGELA M Primary ANGELA M [facility] LITTLEDOB: Insurance:MEDICARE A LITTLEDOB: [place] [id number] AND BPolicy Number: [id number] Hospitals [facility] Center [address] [place] [address], [id number] [address] [place] [address]Los: Date:Plan Name:[facility] [address]Tan: Repository (HP) (HP) 12/27/2017 Secondary ANGELA M [facility] Insurance:HUMANAPolicy LITTLEDOB: [place] Number: [id number] Hospitals Cleveland Medical Center [id number] [address] [place] [address] Date:Plan Name:[place] [address]Yrq: Repository CARE () 12/20/2017 ANGELA James Primary ANGELA James [facility] LITTLEDOB: Insurance:MEDICARE A LITTLEDOB: [place] [id number] AND BPveter[facility] Number: [id number] Hospitals Cleveland Medical Center [address] [place] [address], [id number] [address] [place] [address] [place] [address]Vne: Date:Plan Name:CARE [place] [id number]: Repository (UG) (HP) 12/20/2017 Secondary ANGELA James [facility] Insurance:[facility]: [place] Number: [id number] Hospitals Cleveland Medical Center [id number] [address] [place] [address] Date:Plan Name:MANAGED [place] [id number]: Repository CARE ()
--- OUTSIDE RECORDS SUMMARY | 2018-12-03 09:02 | XMS RPT_ITS | Continuity of Care Document ---
:1945 Author Organization [facility] Address [address] [facility] [address] [place] [address] Phone Care Team Providers Name Role Phone Elva Villatoro CNP Unavailable Alber Levi Unavailable Zeke Houser MD Unavailable Johnathon Turner Unavailable MD Walker, Dangelo James Unavailable Dr. Rodo Sapp Unavailable Jonh Diaz MD Unavailable Demetris Barnes Unavailable Melchor Moralez Unavailable Unavailable Physical Therapy, [facility] Unavailable Ksenia MONTGOMERY, Dr. 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 moralez 3-12 empty sella and ? rakthe cyst aor adenoma./ Status: Active ACTH elevation (E27.0, 255.3) Status: Active Acute pain of left knee (M25.562, 719.46) Status: Active Allergic shiners (J30.9, 477.9) Status: Active Aspiration of liquid, initial encounter (T17.998A, 934.9) Status: Active Atelectasis, left (J98.11, 518.0) Comments: use spirometry Status: Active Atypical chest pain (R07.89, 786.59) Comments: stress test negatve seen cardio. GB work up negative. pt feels something in chest not right check CT of chest good GI for EGD. better now and anca good esr crp goodchest improved with aeroso l Status: Active Axillary lymphadenopathy (R59.0, 785.6) Status: Active Back pain (M54.9, 724.5) Comments: Lower back pain and suprapubic pain likely secondary to lumbar strain No pain on palpation of the llumbar paraspinal muscles.No pain on palpation of the entire spine. Neurological exam power 5/5 in both the lower extremity.Naproxen BID PRPhysical therapy: Dr PÉREZ yrs ago, tearing of muscle, so cant do it.CT scan: no stoneRed flags: please call us if bowel/bladder incontinence, leg weakness, numbnes s, urine retention.If symptoms dont improve in the next 3-4 weeks please call us.(consider MRI)scoiliosis L4-5 seevre DDD, arthritis left hip and groin.Pain 3/10 now gets up to 7/10 after sleepingSuprap ubic pain, 4 month, since februaryUSed bactrim and had agitation and anxiety.Burning urination since MarchNever passed any stone.No fevers, no penile dischargeNever had hernia or sweeling in groin.Had MRI an d Xray in 2013No strenous activityNo radiation to the legs,no weakness or numbness in legs.No bowel/bladder incontineceTramadol helps , once a dayPhysical therapy: tried it because it was painful Status: Active BMI 26.0-26.9,adult (Z68.26, V85.22) Status: Active BMI 26.0-26.9,adult (Z68.26, V85.22) Status: Active BMI 27.0-27.9,adult (Z68.27, V85.23) Status: Active BMI 28.0-28.9,adult (Z68.28, V85.24) Status: Active Bone disease (M89.9, 733.90) Comments: chronic ischemic, marrow atrophy, honeycombed bone left anterior maxilla under treatment with Dr. Aida SOLIZ with amoxicillin Status: Active Bronchitis (J40, 490) Comments: with vocal cord paralysis and aspiration Status: Active Chronic constipation (K59.09, 564.00) Comments: had alot issue with constipation and IBS.col 1-15. Dr. cam has on MG oxide bid. take regularly and keep stable. wean off the laxative. Status: Active Chronic GERD (K21.9, 530.81) Status: Active Chronic pain (G89.29, 338.29) Comments: uses tramadol, pain when lying down all pressure points Status: Active Chronic pain (G89.29, 338.29) Status: Active Chronic sinusitis (J32.9, 473.9) Comments: left ethmoid sinus. seen ent. had surgery and osteo in left cheek. Dr. france in [facility]. nothing else be done. 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 he rec ommend Celexa. again told pt have to try cymblata. 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) Comments: stableeye exam regular EKG done cardio Status: Active Displacement of lumbar intervertebral disc without myelopathy (M51.26, 722.10) Status: Active Dizziness (R42, 780.4) Comments: history of meniers discussed avoid salt Status: Active Dizziness and giddiness (R42, 780.4) Comments: ?vestibular neuronitis vs BPPV vs [place] neurolog[place] for muscle weakness(DR Moralez) ENG goodMRI 12/19: tiny non enhancing lt laterla pituitary gland.MRI pituitary: empty sella, non enhanci ng fociMRI b rain and also Pituitary mRIsaw E[facility] 06/22, recommedned diuretic but pt doesnt want to do it.2 months vertigo, yesterday went for a walk with and had worsening..Dizziness, tinnitis, pressure on the ba ck of head, headche . 2 month worse for 1 day.This AM back of head feels odd, swollen , slight pain, not deep ache, not severe.IntermittentHas sinus infection, dry, left sinus, chronic sinusitis, surg joe X4 left sinus for 5 days.Not positional, can happen when sitting readingSome nausea, imbalance, no vomiting.Rt ear tinnitus, mild hearing loss rt ear.No weakness, diplopia, dysarthria, lethargy Status: Active Dysphagia, unspecified dysphagia (787.20) Comments: On going dysphagia comes and goes, Seeing Melvin Jeong in [place] looking into botox, etc Status: Active Dysuria (R30.0, 788.1) Status: Active Elevated LFTs (R94.5, 790.6) Comments: 2008 not sure why, hepatitis negative. Status: Active Encounter for screening for malignant neoplasm of prostate (Renamed from Screening for prostate cancer) (Z12.5, V76.44) Status: Active Epigastric pain (R10.13, 789.06) Comments: is on ppi thus stillhave GB work up negative. EGD 1-15 good Status: Active Fatigue (R53.83, 780.79) Comments: was told sleep apnea per Sibilia, tried sleep apneaLow D, B12, elevated gluc, low T Status: Active Fatigue (R53.83, 780.79) Comments: multiple somatic complaints talkto him about mood disorder but her denies. not tolerate CPAP Status: Active Groin pain, left (R10.32, 789.09) Status: Active Halitosis (R19.6, 784.99) Comments: check esophagram Status: Active Hearing decreased (H91.90, 389.9) Comments: Dr Naidu wanted him to take diuretic but pt was not intersted.06/22 Status: Active Heartburn (R12, 787.1) Comments: tried whad EGD 1-15 good. think from constipation now. better now. not on antiacid. 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 had complete work up. heavy metal check, lymes, hiv hep rpr celiac SPEP checked.Dr. Karlee Carpio [facility] Status: Active Impaired fasting glucose (R73.01, 790.21) Comments: stable x 6 years continue current plan Status: Active Joint pain (M25.50, 719.40) Comments: sees Roger on tramadol Status: Active Low Back Pain (M54.5, 724.2) Comments: chronic L2-L3, L3-L4, L4-5, L5-S1 Status: Active Low testosterone (E34.9, 259.9) Status: Active Low testosterone (R79.89, 790.99) Comments: Free testosterone level 2.4, taking 2 pumps ok to increase to 3 pumps daily, recent Psa pajlci5-31-15, considering injection, he will check insurance Status: Active Lower back pain (M54.5, 724.2) Status: Active Memory loss or impairment (R41.3, 780.93) Comments: refuse neuropsych testing. Dr. moralez want same. he does notice this more. again recommend and with him being psychologist not want to do this yet. sound like absentmindedness. 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 if not working fine so at this point hold off did talk about the meds. does have 1-2 beers at night. told take thiamine. not etoh abuse. Status: Active Mouth pain (K13.79, 528.9) Comments: back of mouth sore red swollen white spot Status: Active Multilevel degenerative disc disease (M53.9, 722.6) Comments: MRI cervical mild, lumbar tried lyrica. used ultram in past for years. mri 3-14 neck and back advanced. [facility] Dr. Silva consider surgery and want epidural first. saw Dr. avina and he would be one to do bailey rgery. he is trying to get xrays. had basali inject and not help. send to [facility]. bought new car and sleep number bed not change.Oswald handling tramadol, got caudal epidural, has problem with lifting making pain worse.Chronic back pain Status: Active Multiple joint pain (M25.50, 719.49) Comments: wakes him up at night, like bone pain, shoulder hip, knees, has used tramadol, left groinchronic pain for 15 yrs Status: Active Myalgia (M79.10, 729.1) Comments: talk to him about fibromyalgia. not like lyrica, TCA. remeron constipation. really had multiple somatic complaints. did ashok anca negative. Status: Active Night sweats (R61, 780.8) Comments: going on for awhile, will follow up Status: Active Nodule of right lung (R91.1, 793.11) Comments: subplural fibrotic change repeat CT 12 months repeat without contrast Status: Active Obesity, unspecified (E66.9, 278.00) Comments: lost weight continuing. Status: Active Obstructive sleep apnea, adult (G47.33, 327.23) Comments: working with Dr. turner not able to tolerate any mask. never able to tolerate, not wanting to see Dorian cpap not tolerate, [facility] did home test. 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 cullen and getting cystoscpy Status: Active Palpitations (R00.2, 785.1) Comments: seeing cardio soon will get echo and work up. right now not causing any signs and symptoms right now ? caffeine. Status: Active Post-viral cough syndrome (R05, 786.2) Status: Active Right knee pain (M25.561, 719.46) Comments: had arthroscopy in past 90's. see sports med. Dr. flores. recently twist adn pain. dalia try injection not help. has bone on bone on both knees. Status: Active Shortness of breath at rest (R06.02, 786.05) Comments: Seeing Johnny he is working up PFT 6min walk, sputum for culture, quateferon gold using Breo had him stopped proventilstress 2013 Status: Active Skin lesion of face (L98.9, 709.9) Status: Active Sleep apnea (G47.30, 780.57) Comments: cannot tolerate, try oral appliance Status: Active Testosterone deficiency (E34.9, 257.2) Comments: free testosterone is 4.6 last PSA 8-18 normal, repeat Testosterone level was 2.9 in Dec 2016 start androgel, labs in 2 months 9.8 for free testosterone and psa in Jun Status: Active Unspecified Diagnosis Status: Active Unspecified Diagnosis Status: Active Vitamin B12 deficiency (E53.8, 266.2) Status: Active Vitamin D deficiency (E55.9, 268.9) Status: Active Weakness (R53.1, 780.79) Comments: extensive workup with DDD in neck and lumbar. [facility] and symptoms from DDD and sleep apnea. Status: Active Medications Name Dates Details ALPHA-LIPOIC ACID, 200MG (Oral Capsule) Active 2 bid (200 MG) AndroGel 40.5 MG/2.5GM (1.62%) Transdermal Gel 1 (one) Gel Apply 40.5 mg q am, 3pumps daily for 30 days Quantity: 150 {Gram} Refills: 5 Ordered:25-Apr-2018 Elva Villatoro CNP, CNP, Mary E Start : 25-Apr-2018 Active Comments:(40.5mg/2.5gm) 3pumps daily AndroGel 40.5 MG/2.5GM (1.62%) Transdermal Gel 1 (one) Apply 40.5 mg q am (40.5 MG/2.5GM (1.62%)) Start : 17-Apr-2018 Active Comments:(40.5mg/2.5gm AndroGel 40.5 MG/2.5GM (1.62%) Transdermal Gel 1 (one) Gel Apply 40.5 mg q am, 3pumps daily for 30 days Quantity: 150 {Tube} Refills: 5 Ordered:25-Apr-2018 Elva Villatoro CNP, CNP, Mary E Start : 25-Apr-2018 Active D-3 S Cholecalciferol 1 qd Active garlic Active Green Magma 6 bid Active HITCHCOCK Joint Formula 1 bid Active Innate B complex 1 qd Active [place] daily Active oregano Active potassium Active Potassium 99 MG Oral Tablet daily (99 MG) Active Probiotic 250 MG Oral Capsule daily (250 MG) Active Topicort 0.25 % External Cream 1 (one) Cream Cream bid for 0 days Quantity: 1 {Tube} Refills: 0 Ordered:23-Feb-2016 Caity Melendez Start : 23-Feb-2016 Active TraMADol HCl 50 MG Oral Tablet uad Tablet 1-2 every 8 hour prn pain for 90 days Quantity: 90 {Tablet} Refills: 0 Ordered:26-Jul-2018 Irving NARANJO, Elva Fernandez CNP, Elva Blancas Start : 26-Jul-2018 Active Comments:Per Dr. Akers vitamin c 1000 mg daily Active Vitamin D3 2000 UNIT Oral Tablet daily (2000 UNIT) Active ANDROGEL PUMP, 12.5 MG/ACT(1%) (Transdermal Gel) 1 (one) Gel 4 pumps a day for 30 days Refills: 3 Ordered:23-May-2015 YOLA Jiménez Start : 15-May-2015 End : 23-May-2015 Inactive Comments:thirty days AUGMENTIN, 875-125MG (Oral Tablet) 1 Tablet bid for 14 days Quantity: 28 {Tablet} Refills: 0 Ordered:30-Mar-2012 Alee Zapata MD Start : 30-Mar-2012 End : 13-Apr-2012 Inactive Breo Ellipta 100-25 MCG/INH Inhalation Aerosol Powder Breath Activated 1 (one) Puff daily for 0 days Quantity: 1 {Inhaler} Refills: 0 Ordered:14-Sep-2017 Irving NARANJO, Elva Fernandez CNP, Elva Blancas Start : 29-Apr-2017 End : 14-Sep-2017 Inactive Claritin 10 MG Oral Capsule 1 (one) Capsule Capsule daily for 0 days Quantity: 30 {Capsule} Refills: 0 Ordered:25-Apr-2018 Jhony Dahl Start : 11-Apr-2017 End : 25-Apr-2018 Inactive ETODOLAC CR, 400MG (Oral Tablet Extended Release 24 Hour) 2 (two) Tablet ER 24HR qd with food for 0 days Quantity: 30 {Tablet_ER_24HR} Refills: 0 Ordered:23-Mar-2012 Edel Sanford LPN Start : 23-Feb-2012 End : 23-Mar-2012 Inactive LEVAQUIN, 500MG (Oral Tablet) 1 (one) Tablet Tablet daily for 0 days Quantity: 14 {Tablet} Refills: 0 Ordered:07-Oct-2014 YOLA Jiménez Start : 12-Jul-2014 End : 07-Oct-2014 Inactive LINZESS, 290MCG (Oral Capsule) 1 Capsule daily for 0 days Quantity: 30 {Capsule} Refills: 2 Ordered:22-Nov-2013 YOLA Jiménez Start : 27-Mar-2013 End : 22-Nov-2013 Inactive METAXALONE, 800MG (Oral Tablet) 1 Tablet tid prn for 0 days Quantity: 30 {Tablet} Refills: 0 Ordered:22-Nov-2013 YOLA Jiménez Start : 23-Oct-2013 End : 22-Nov-2013 Inactive MIRALAX (Oral Packet) 1 Packet 17 gm a day for 0 days Quantity: 30 {Packet} Refills: 6 Ordered:23-Oct-2012 Long Arelis SHIPLEY Start : 26-Sep-2012 End : 23-Oct-2012 Inactive MOBIC, 15MG (Oral Tablet) 1 (one) Tablet Tablet daily for 0 days Quantity: 30 {Tablet} Refills: 0 Ordered:19-Mar-2014 YOLA Jiménez Start : 22-Nov-2013 End : 19-Mar-2014 Inactive Mucinex 600 MG Oral Tablet Extended Release 12 Hour 1 (one) Tablet ER 12HR Tablet ER 12HR bid for 0 days Quantity: 30 {Tablet} Refills: 0 Ordered:25-Apr-2018 Jhony Dahl Start : 16-Feb-2017 End : 25-Apr-2018 Inactive NASONEX, 50MCG/ACT (Nasal Suspension) 1 (one) Suspension 2 spray each nostril daily for 0 days Quantity: 1 {Suspension} Refills: 0 Ordered:26-Sep-2012 YOLA Jiménez Start : 30-Mar-2012 End : 26-Sep-2012 Inactive Omeprazole 40 MG Oral Capsule Delayed Release [address] daily before a meal for 14 days Quantity: 30 {Capsule} Refills: 0 Ordered:14-Apr-2017 Alee Zapata MD Start : 14-Apr-2017 End : 28-Apr-2017 Inactive Omeprazole 40 MG Oral Capsule Delayed Release [address] daily before a meal for 14 days Quantity: 30 {Capsule} Refills: 0 Ordered:29-Apr-2017 Elva Villatoro CNP, CNP, Mary E Start : 11-Apr-2017 End : 25-Apr-2017 Inactive PREDNISONE, 20MG (Oral Tablet) 1 Tablet tid for one day then bid for 3 days then qd for 3 days for 0 days Quantity: 12 {Tablet} Refills: 0 Ordered:22-Nov-2013 YOLA Jiménez Start : 23-Oct-2013 End : 22-Nov-2013 Inactive PREGNENOLONE (Powder) uad compound cream Inactive Comments:pregnenolone 25mg/DHEA 25mg/gram apply 1 ml to inner arm or inner thigh qd Proventil HFA 108 (90 Base) MCG/ACT Inhalation Aerosol Solution 2 (two) Puff tid x 10 days for 0 days Quantity: 1 {Inhaler} Refills: 0 Ordered:29-Apr-2017 Quetakayleeellen NARANJO Elva NINItaylorellen NARANJO, Libra Start : 18-Apr-2017 End : 29-Apr-2017 Inactive TESTOSTERONE, 50MG/5GM (Transdermal Gel) uad 0.5 ml topically qd to shoulder/inner arm (50 MG/5GM) Inactive Ultram 50 MG Oral Tablet 1 (one) Tablet Tablet q8hrs prn for 90 days Quantity: 90 {QS} Refills: 0 Ordered:18-Apr-2017 Emily Yeh LPN Start : 18-Apr-2017 End : 17-Jul-2017 Inactive Rosa Fx 2 qd End : 14-Dec-2016 Discontinued Calcium magnesium End : 26-Jul-2018 Discontinued CDG Estro DIM 1 qd End : 14-Dec-2016 Discontinued Cyanocobalamin 2500 MCG Sublingual Tablet Sublingual 1 (one) Tab Sublingual Tab Sublingual daily for 0 days Quantity: 30 {Tablet} Refills: 0 Ordered:26-Jul-2018 Amina Newsome Start : 28-Dec-2016 End : 26-Jul-2018 Discontinued CYMBALTA, 30MG (Oral Capsule Delayed Release Particles) 1 (one) Capsule DR Part Capsule DR Part daily for 0 days Quantity: 14 {Capsule} Refills: 0 Ordered:24-Mar-2015 Alee Zapata MD Start : 24-Mar-2015 End : 10-Jun-2015 Discontinued CYMBALTA, 60MG (Oral Capsule Delayed Release Particles) 1 (one) Capsule DR Part Capsule DR Part daily for 0 days Quantity: 30 {Capsule} Refills: 3 Ordered:24-Mar-2015 Alee Zapata MD Start : 24-Mar-2015 End : 10-Jun-2015 Discontinued Ergocalciferol 19520 UNIT Oral Capsule 1 (one) Capsule Capsule twice weekly for 0 days Quantity: 24 {Capsule} Refills: 0 Ordered:26-Jul-2018 Amina Newsome Start : 28-Dec-2016 End : 26-Jul-2018 Discontinued ProAir HFA 108 (90 Base) MCG/ACT Inhalation Aerosol Solution 2 (two) Puff Puff tid or qid prn for 0 days Quantity: 1 {Inhaler} Refills: 0 Ordered:26-Jul-2018 Amina Newsome Start : 20-Dec-2017 End : 26-Jul-2018 Discontinued Super Oxide Dismutase 1 qd End : 14-Dec-2016 Discontinued Testosterone Chrysin 75mg/25mg/ml gel apply 2ml topically daily End : 23-Feb-2016 Discontinued Comments:[facility] pharmacy fax [phone] TRAMADOL HCL ER (BIPHASIC), 100MG (Oral Tablet Extended Release 24 Hour) 1 Tablet ER 24HR q 4-6 hours prn for 0 days Quantity: 30 {Tablet} Refills: 2 Ordered:24-Dec-2013 Arelis Nagel LPN Start : 21-Dec-2013 End : 24-Dec-2013 Discontinued Comments:30, called to [facility] [id number] TRAZODONE HCL, 50MG (Oral Tablet) 1 Tablet 1/2 at ngiht for 1 week then 1 at night. for 0 days Quantity: 30 {Tablet} Refills: 4 Ordered:23-Oct-2012 Alee Zapata MD Start : 23-Oct-2012 End : 23-Oct-2012 Discontinued Vital Mag 2 qd End : 14-Dec-2016 Discontinued Zantac 150 MG Oral Tablet 1 (one) Tablet Tablet qhs for 0 days Quantity: 30 {Tablet} Refills: 0 Ordered:26-Jul-2018 Amina Newsome Start : 29-Apr-2017 End : 26-Jul-2018 Discontinued Allergies and Adverse Reactions Name Dates Details No Known Allergies (Allergy) Onset: 30-Dec-2011 Status: Inactive No Known Drug Allergies (Allergy) Onset: 14-May-2014 Status: Active Past Medical History Name Dates Details Abdominal pain (R10.9, 789.00) Comments: better in stommach than was. lost weight not need PPI. consider gastroporesis Status: Inactive as of 19-Mar-2014 Abnormal blood finding (R79.9, 790.99) Comments: one test on lymes positive and put on atb by homeopathic and not help. just had done. Status: Inactive as of 07-Oct-2014 BMI 27.0-27.9,adult (Z68.27, V85.23) Status: Inactive as of 20-Dec-2017 BMI 28.0-28.9,adult (Z68.28, V85.24) Status: Inactive as of 24-Jun-2017 BMI 29.0-29.9,adult (Z68.29, V85.25) Status: Inactive as of 24-Jun-2017 Encounter for routine history and physical exam for male (Z00.00, V70.0) Comments: colonscopy 11-21. talk about prevnar. Status: Inactive as of 13-Nov-2015 Fever and chills (R50.9, 780.60) Comments: all cx good CRP good and ESR good. 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 Status: Inactive as of 19-Mar-2014 Gait abnormality (R26.9, 781.2) Comments: stable Status: Inactive as of 19-Mar-2014 Headache (R51, 784.0) Comments: amish. check esr crp and need biopsy. Status: Inactive as of 19-Mar-2014 Low back pain potentially associated with radiculopathy (M54.5, 724.2) Comments: still gets. had some in right mid back. doing Dr. brooks chiropactor treatments. 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 ? long stnding or congential. chek rpr, drug screen for morphine. see oopthal. has had mri of brain. no reason to think cavernous sinus thrombosis Status: Inactive as of 19-Mar-2014 Nausea (R11.0, 787.02) Comments: better Status: Inactive as of 14-May-2014 OSTEOMYELITIS, CHRONIC, OTHER SPEC SITE (730.18) Comments: bone scan 2012maxillary right first molar area 07-02-99 Status: Inactive as of 23-Dec-2014 Pain in right hip (M25.551, 719.45) Comments: MRI of hip will get this. will see Dr. Shahram Silva next week at [facility] think coming from back. Status: Inactive as of 23-Dec-2014 Premature beats (I49.49, 427.60) Comments: had stress echo summer 2011, with steriod injection worsen some and talk about use bblker if worsen again with injection.PVCs and PAC's, [place] [facility] Status: Inactive as of 13-Nov-2015 Rash (R21, 782.1) Comments: resolving, without cream Status: Inactive as of 24-Jun-2017 Rib pain (R07.81, 786.50) Comments: will get xray and do nsaids and chirpactor. Status: Inactive as of 19-Mar-2014 Right testicular pain (N50.811, 608.9) Comments: starts in bilateral groin area Status: Inactive as of 24-Jun-2017 SYMPTOM, POLYDIPSIA (783.5) Status: Inactive as of 08-May-2013 Tension (F48.9, V62.89) Comments: some irritablity, anxious some. will add st meza wort, valerian root and testosterone supplement. will see if helps. if worsen and this not help try SSRI. Status: Inactive as of 13-Nov-2015 Unspecified Diagnosis Status: Inactive as of 08-May-2013 Unspecified Diagnosis Status: Inactive as of 07-Oct-2014 UTI symptoms (R39.9, 788.99) Status: Inactive as of 14-Sep-2017 Visual changes (H53.9, 368.9) Comments: has myosis. not sure why and not accommadate. been since eye surgery 03-16 Status: Inactive as of 23-Dec-2014 Procedures Procedure Dates Details dozens of oral surgeries Completed Comments: multiple to cut out infected bone left Dental surgery Completed Comments: 2017 Date Value Details 27-Jul-2018 Sinus/Facial Bone Result: Comments: See Note; NOTES: [facility] Imaging Services [address] [place] [address] Sinus/Facial Bone MR#: [id number] Acct: [id number] Name: BERE CEDEÑOJENNIFER James Rep #: [id number] : 1945 M 73 From: Jon Walker MD PCP: Elva Villatoro NP Status: REG CLI Study: Sinus/Facial Bone Date of Exam: 07/27/18 Exam# [id number] Ordering Dr: MELVIN JEONG STUDY: CT MAXILLOFACIAL SINUS ES REASON FOR EXAM: Male, 73 years old. Sinusitis. RADIATION DOSAGE (If Supplied By Facility): CTDIvol = ( 33.06 ) mGy, DLP = ( 842.11 ) mGycm TECHNIQUE: The patient was scanned in a multi detector C T scanner. High resolution axial imaging was performed without the administration of intravenous contrast material. Sagittal and coronal images were reconstructed. Individualized dose optimization tech niques were used for this CT. COMPARISON: None. FINDINGS: FRONTAL SINUSES: Normal aeration, without mucosal inflammatory disease. ETHMOIDAL SINUSES: Normal aerati on, without mucosal inflammatory disease. MAXILLARY SINUSES: Normal [...] Electronically Signed: Jon Walker MD at 2:10 ED T Tel , Service support , CC: Elva Villatoro NP; MELVIN JEONG Public Affairs Specialist: Signed 27-Jul-2018 Sinus/Facial Bone Result: Comments: See Note; NOTES: [facility] Imaging Services [facility] [place] [address] Sinus/Facial Bone MR#: [id number] Acct: [id number] Name: ANGELA CEDEÑO Rep #: [id number] : 1945 M 73 From: Jon Walkre MD PCP: Elva Villatoro NP Status: REG CLI Study: Sinus/Facial Bone Date of Exam: 07/27/18 Exam# [id number] Ordering Dr: MELVIN JEONG STUDY: CT MAXILLOFACIAL SINUS ES REASON FOR EXAM: Male, 73 years old. Sinusitis. RADIATION DOSAGE (If Supplied By Facility): CTDIvol = ( 33.06 ) mGy, DLP = ( 842.11 ) mGycm TECHNIQUE: The patient was scanned in a multi detector C T scanner. High resolution axial imaging was performed without the administration of intravenous contrast material. Sagittal and coronal images were reconstructed. Individualized dose optimization tech niques were used for this CT. COMPARISON: None. FINDINGS: FRONTAL SINUSES: Normal aeration, without mucosal inflammatory disease. ETHMOIDAL SINUSES: Normal aerati on, without mucosal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 EST , Service support [phone], CC: Alee Zapata MD Public Affairs Specialist: Signed Family History Unknown Family Member Name Dates Details Brother 1 Comments: heart arrythmia Status: Active Father Comments: Cancer small intestine and facial cancers, HTN, diabetes CHF age 91 Status: Active Mother Comments: Massive stroke age 49 lived another 39 years after that now Status: Active Social History Name Dates Details Alcohol Use: Occasional alcohol use. Drinks beer. Comments: 6 pack a week Status: Active Caffeine Use Comments: 3 to 4 cups qd Status: Active Current Work/Study Status: Retired. Comments: [facility] [employer] Status: Active Exercise History: Does not exercise. Status: Active Living Situation: Lives with spouse. Comments: Status: Active No Drug Use Status: Active Non Smoker/No Tobacco Use Status: Active Tobacco use: Never smoker. Status: Active Smoking Status Name Dates Details Never smoker Vital Signs Date Test Result Details :39 Temperature 97.7 f Comments: Method: Temporal Pulse 57 /min Comments: Pattern: Regular Respiration Rate 17 /min Comments: Pattern: Unlabored O2 SAT 98 % Comments: Room air BP Systolic 116 mm[Hg] Comments: Patient Position: Sitting; Cuff Location: Left Arm; Cuff Size: Standard BP Diastolic 70 mm[Hg] Comments: Patient Position: Sitting; Cuff Location: Left Arm; Cuff Size: Standard Weight 212.125 lb Height 74 in Body Mass Index Calculated 27.23 kg/m2 Body Surface Area Calculated 2.23 m2 :21 Temperature 97.6 f Comments: Method: Temporal Pulse 66 /min Comments: Pattern: Regular Respiration Rate 17 /min Comments: Pattern: Unlabored O2 SAT 98 % Comments: Room air BP Systolic 122 mm[Hg] Comments: Patient Position: Sitting; Cuff Location: Left Arm; Cuff Size: Standard BP Diastolic 82 mm[Hg] Comments: Patient Position: Sitting; Cuff Location: Left Arm; Cuff Size: Standard Weight 208 lb Height 74 in Body Mass Index Calculated 26.71 kg/m2 Body Surface Area Calculated 2.21 m2 :45 Temperature 97.1 f Pulse 79 /min Comments: Pattern: Regular Respiration Rate 16 /min Comments: Pattern: Unlabored O2 SAT 97 % Comments: Room air BP Systolic 116 mm[Hg] Comments: Patient Position: Sitting; Cuff Location: Left Arm; Cuff Size: Standard BP Diastolic 78 mm[Hg] Comments: Patient Position: Sitting; Cuff Location: Left Arm; Cuff Size: Standard Weight 206.125 lb Height 74 in Body Mass Index Calculated 26.46 kg/m2 Body Surface Area Calculated 2.2 m2 :40 Temperature 98.1 f Comments: Method: Temporal Pulse 78 /min Comments: Pattern: Regular Respiration Rate 16 /min Comments: Pattern: Unlabored O2 SAT 98 % Comments: Room air BP Systolic 124 mm[Hg] Comments: Patient Position: Sitting; Cuff Location: Left Arm; Cuff Size: Standard BP Diastolic 78 mm[Hg] Comments: Patient Position: Sitting; Cuff Location: Left Arm; Cuff Size: Standard Weight 209 lb Height 74 in Body Mass Index Calculated 26.83 kg/m2 Body Surface Area Calculated 2.21 m2 :40 Temperature 98.1 f Pulse 82 /min Comments: Pattern: Regular Respiration Rate 18 /min Comments: Pattern: Unlabored O2 SAT 98 % Comments: Room air BP Systolic 138 mm[Hg] Comments: Patient Position: Sitting; Cuff Location: Left Arm; Cuff Size: Standard BP Diastolic 76 mm[Hg] Comments: Patient Position: Sitting; Cuff Location: Left Arm; Cuff Size: Standard Weight 211.125 lb Height 74 in Body Mass Index Calculated 27.11 kg/m2 Body Surface Area Calculated 2.22 m2 :23 Temperature 97.7 f Pulse 71 /min Comments: Pattern: Regular Respiration Rate 16 /min Comments: Pattern: Unlabored O2 SAT 97 % Comments: Room air BP Systolic 124 mm[Hg] Comments: Patient Position: Sitting; Cuff Location: Left Arm; Cuff Size: Standard BP Diastolic 72 mm[Hg] Comments: Patient Position: Sitting; Cuff Location: Left Arm; Cuff Size: Standard Weight 207 lb Height 74 in Body Mass Index Calculated 26.58 kg/m2 Body Surface Area Calculated 2.21 m2 :50 Temperature 98 f Pulse 71 /min Comments: Pattern: Regular Respiration Rate 16 /min Comments: Pattern: Unlabored O2 SAT 93 % Comments: Room air BP Systolic 130 mm[Hg] Comments: Patient Position: Sitting; Cuff Location: Left Arm; Cuff Size: Standard BP Diastolic 91 mm[Hg] Comments: Patient Position: Sitting; Cuff Location: Left Arm; Cuff Size: Standard Weight 222 lb Height 74 in Body Mass Index Calculated 28.5 kg/m2 Body Surface Area Calculated 2.27 m2 :18 Pulse 80 /min Comments: Pattern: Regular Respiration Rate 16 /min Comments: Pattern: Unlabored O2 SAT 98 % Comments: Room air BP Systolic 112 mm[Hg] Comments: Patient Position: Sitting; Cuff Location: Left Arm; Cuff Size: Standard BP Diastolic 62 mm[Hg] Comments: Patient Position: Sitting; Cuff Location: Left Arm; Cuff Size: Standard Weight 222.5 lb Height 74 in Body Mass Index Calculated 28.57 kg/m2 Body Surface Area Calculated 2.27 m2 :55 Temperature 97.7 f Comments: Method: Temporal Pulse 67 /min Comments: Pattern: Regular Respiration Rate 16 /min Comments: Pattern: Unlabored O2 SAT 97 % Comments: Room air BP Systolic 118 mm[Hg] Comments: Patient Position: Sitting; Cuff Location: Left Arm; Cuff Size: Standard BP Diastolic 70 mm[Hg] Comments: Patient Position: Sitting; Cuff Location: Left Arm; Cuff Size: Standard Weight 222.5 lb Height 74 in Body Mass Index Calculated 28.57 kg/m2 Body Surface Area Calculated 2.27 m2 :32 Temperature 97.6 f Pulse 73 /min Comments: Pattern: Regular Respiration Rate 16 /min Comments: Pattern: Unlabored O2 SAT 98 % Comments: Room air BP Systolic 122 mm[Hg] Comments: Patient Position: Sitting; Cuff Location: Left Arm; Cuff Size: Standard BP Diastolic 80 mm[Hg] Comments: Patient Position: Sitting; Cuff Location: Left Arm; Cuff Size: Standard Weight 222.5 lb Height 74 in Body Mass Index Calculated 28.57 kg/m2 Body Surface Area Calculated 2.27 m2 :40 Temperature 98.2 f Pulse 85 /min Comments: Pattern: Regular Respiration Rate 16 /min Comments: Pattern: Unlabored O2 SAT 97 % Comments: Room air BP Systolic 124 mm[Hg] Comments: Patient Position: Sitting; Cuff Location: Left Arm; Cuff Size: Standard BP Diastolic 82 mm[Hg] Comments: Patient Position: Sitting; Cuff Location: Left Arm; Cuff Size: Standard Weight 226.5 lb Height 74 in Body Mass Index Calculated 29.08 kg/m2 Body Surface Area Calculated 2.29 m2 :03 Temperature 97.8 f Pulse 79 /min Comments: Pattern: Regular Respiration Rate 18 /min Comments: Pattern: Unlabored O2 SAT 99 % Comments: Room air BP Systolic 122 mm[Hg] Comments: Patient Position: Sitting; Cuff Location: Left Arm; Cuff Size: Standard BP Diastolic 82 mm[Hg] Comments: Patient Position: Sitting; Cuff Location: Left Arm; Cuff Size: Standard Weight 224 lb Height 74 in Body Mass Index Calculated 28.76 kg/m2 Body Surface Area Calculated 2.28 m2 :36 Comments: dull ache in the back of the head Temperature 96.8 f Pulse 58 /min Comments: Pattern: Regular Respiration Rate 16 /min Comments: Pattern: Unlabored O2 SAT 97 % Comments: Room air BP Systolic 120 mm[Hg] Comments: Patient Position: Sitting; Cuff Location: Left Arm; Cuff Size: Standard BP Diastolic 76 mm[Hg] Comments: Patient Position: Sitting; Cuff Location: Left Arm; Cuff Size: Standard Weight 225.25 lb Height 74 in Body Mass Index Calculated 28.92 kg/m2 Body Surface Area Calculated 2.29 m2 :21 Pulse 55 /min Comments: Pattern: Regular Respiration Rate 16 /min Comments: Pattern: Unlabored O2 SAT 98 % Comments: Room air BP Systolic 115 mm[Hg] Comments: Patient Position: Sitting; Cuff Location: Left Arm; Cuff Size: Standard BP Diastolic 70 mm[Hg] Comments: Patient Position: Sitting; Cuff Location: Left Arm; Cuff Size: Standard Weight 225.25 lb Height 74 in Body Mass Index Calculated 28.92 kg/m2 Body Surface Area Calculated 2.29 m2 :30 Temperature 97.4 f Pulse 67 /min Comments: Pattern: Regular Respiration Rate 16 /min Comments: Pattern: Unlabored O2 SAT 98 % Comments: Room air BP Systolic 116 mm[Hg] Comments: Patient Position: Sitting; Cuff Location: Left Arm; Cuff Size: Standard BP Diastolic 78 mm[Hg] Comments: Patient Position: Sitting; Cuff Location: Left Arm; Cuff Size: Standard Weight 225.25 lb Height 74 in Body Mass Index Calculated 28.92 kg/m2 Body Surface Area Calculated 2.29 m2 :51 Temperature 97.6 f Pulse 83 /min Comments: Pattern: Regular Respiration Rate 17 /min Comments: Pattern: Unlabored O2 SAT 98 % Comments: Room air BP Systolic 122 mm[Hg] Comments: Patient Position: Sitting; Cuff Location: Left Arm; Cuff Size: Standard BP Diastolic 78 mm[Hg] Comments: Patient Position: Sitting; Cuff Location: Left Arm; Cuff Size: Standard Weight 225.125 lb Height 74 in Body Mass Index Calculated 28.9 kg/m2 Body Surface Area Calculated 2.29 m2 :55 Temperature 97.6 f Comments: Method: Temporal Pulse 66 /min Comments: Pattern: Regular Respiration Rate 18 /min Comments: Pattern: Unlabored O2 SAT 98 % Comments: Room air BP Systolic 110 mm[Hg] Comments: Patient Position: Sitting; Cuff Location: Left Arm; Cuff Size: Standard BP Diastolic 74 mm[Hg] Comments: Patient Position: Sitting; Cuff Location: Left Arm; Cuff Size: Standard Weight 224 lb Height 74 in Body Mass Index Calculated 28.76 kg/m2 Body Surface Area Calculated 2.28 m2 :16 Temperature 97.7 f Comments: Method: Temporal Pulse 69 /min Comments: Pattern: Regular Respiration Rate 16 /min Comments: Pattern: Unlabored O2 SAT 98 % Comments: Room air BP Systolic 122 mm[Hg] Comments: Patient Position: Sitting; Cuff Location: Left Arm; Cuff Size: Standard BP Diastolic 74 mm[Hg] Comments: Patient Position: Sitting; Cuff Location: Left Arm; Cuff Size: Standard Weight 229 lb Height 74 in Body Mass Index Calculated 29.4 kg/m2 Body Surface Area Calculated 2.3 m2 :57 Temperature 97.3 f Comments: Method: Temporal Pulse 74 /min Comments: Pattern: Regular Respiration Rate 18 /min Comments: Pattern: Unlabored O2 SAT 97 % Comments: Room air BP Systolic 110 mm[Hg] Comments: Patient Position: Sitting; Cuff Location: Left Arm; Cuff Size: Standard BP Diastolic 74 mm[Hg] Comments: Patient Position: Sitting; Cuff Location: Left Arm; Cuff Size: Standard Weight 229 lb Height 74 in Body Mass Index Calculated 29.4 kg/m2 Body Surface Area Calculated 2.3 m2 :48 Pulse 64 /min Comments: Pattern: Regular Respiration Rate 16 /min Comments: Pattern: Unlabored O2 SAT 97 % Comments: Room air BP Systolic 122 mm[Hg] Comments: Patient Position: Sitting; Cuff Location: Left Arm; Cuff Size: Standard BP Diastolic 70 mm[Hg] Comments: Patient Position: Sitting; Cuff Location: Left Arm; Cuff Size: Standard Weight 229.25 lb Height 74 in Body Mass Index Calculated 29.43 kg/m2 Body Surface Area Calculated 2.3 m2 :57 Temperature 97.1 f Comments: Method: Temporal Pulse 84 /min Comments: Pattern: Regular Respiration Rate 20 /min Comments: Pattern: Unlabored O2 SAT 99 % Comments: Room air BP Systolic 118 mm[Hg] Comments: Patient Position: Sitting; Cuff Location: Left Arm; Cuff Size: Standard BP Diastolic 78 mm[Hg] Comments: Patient Position: Sitting; Cuff Location: Left Arm; Cuff Size: Standard Weight 224 lb Height 74 in Body Mass Index Calculated 28.76 kg/m2 Body Surface Area Calculated 2.28 m2 :40 Temperature 97.6 f Comments: Method: Temporal Pulse 70 /min Comments: Pattern: Regular Respiration Rate 20 /min Comments: Pattern: Unlabored BP Systolic 120 mm[Hg] Comments: Patient Position: Sitting; Cuff Location: Left Arm; Cuff Size: Standard BP Diastolic 80 mm[Hg] Comments: Patient Position: Sitting; Cuff Location: Left Arm; Cuff Size: Standard Weight 224 lb Height 74 in Body Mass Index Calculated 28.76 kg/m2 Body Surface Area Calculated 2.28 m2 :38 Temperature 98 f Comments: Method: Oral Pulse 62 /min Comments: Pattern: Regular Respiration Rate 18 /min Comments: Pattern: Unlabored BP Systolic 120 mm[Hg] Comments: Patient Position: Sitting; Cuff Location: Left Arm; Cuff Size: Standard BP Diastolic 70 mm[Hg] Comments: Patient Position: Sitting; Cuff Location: Left Arm; Cuff Size: Standard Weight 232 lb Height 74 in Body Mass Index Calculated 29.79 kg/m2 Body Surface Area Calculated 2.31 m2 :04 Temperature 97.9 f Comments: Method: Oral Pulse 68 /min Comments: Pattern: Regular Respiration Rate 20 /min Comments: Pattern: Unlabored O2 SAT 98 % Comments: Room air BP Systolic 140 mm[Hg] Comments: Patient Position: Sitting; Cuff Location: Left Arm; Cuff Size: Standard BP Diastolic 78 mm[Hg] Comments: Patient Position: Sitting; Cuff Location: Left Arm; Cuff Size: Standard Weight 232 lb Height 74 in Body Mass Index Calculated 29.79 kg/m2 Body Surface Area Calculated 2.31 m2 :42 Temperature 97.8 f Comments: Method: Temporal Pulse 78 /min Comments: Pattern: Regular Respiration Rate 16 /min Comments: Pattern: Unlabored O2 SAT 97 % Comments: Room air BP Systolic 122 mm[Hg] Comments: Patient Position: Sitting; Cuff Location: Left Arm; Cuff Size: Standard BP Diastolic 70 mm[Hg] Comments: Patient Position: Sitting; Cuff Location: Left Arm; Cuff Size: Standard Weight 232 lb Height 74 in Body Mass Index Calculated 29.79 kg/m2 Body Surface Area Calculated 2.31 m2 :03 Pulse 71 /min Comments: Pattern: Regular Respiration Rate 16 /min Comments: Pattern: Unlabored O2 SAT 98 % Comments: Room air BP Systolic 126 mm[Hg] Comments: Patient Position: Sitting; Cuff Location: Left Arm; Cuff Size: Standard BP Diastolic 80 mm[Hg] Comments: Patient Position: Sitting; Cuff Location: Left Arm; Cuff Size: Standard Weight 234 lb Height 74 in Body Mass Index Calculated 30.04 kg/m2 Body Surface Area Calculated 2.32 m2 :38 Temperature 97.9 f Comments: Method: Oral Pulse 56 /min Comments: Pattern: Regular Respiration Rate 20 /min Comments: Pattern: Unlabored BP Systolic 118 mm[Hg] Comments: Patient Position: Sitting; Cuff Location: Left Arm; Cuff Size: Standard BP Diastolic 74 mm[Hg] Comments: Patient Position: Sitting; Cuff Location: Left Arm; Cuff Size: Standard Weight 228 lb Height 74 in Body Mass Index Calculated 29.27 kg/m2 Body Surface Area Calculated 2.3 m2 :46 Temperature 97.3 f Comments: Method: Oral Pulse 58 /min Comments: Pattern: Regular Respiration Rate 18 /min Comments: Pattern: Unlabored O2 SAT 98 % Comments: Room air BP Systolic 120 mm[Hg] Comments: Patient Position: Sitting; Cuff Location: Left Arm; Cuff Size: Standard BP Diastolic 78 mm[Hg] Comments: Patient Position: Sitting; Cuff Location: Left Arm; Cuff Size: Standard Weight 228 lb Height 74 in Body Mass Index Calculated 29.27 kg/m2 Body Surface Area Calculated 2.3 m2 :52 Temperature 97.2 f Pulse 48 /min Comments: Pattern: Regular Respiration Rate 18 /min Comments: Pattern: Unlabored BP Systolic 100 mm[Hg] Comments: Patient Position: Sitting; Cuff Location: Left Arm; Cuff Size: Large BP Diastolic 70 mm[Hg] Comments: Patient Position: Sitting; Cuff Location: Left Arm; Cuff Size: Large Weight 221 lb Height 74 in Body Mass Index Calculated 28.37 kg/m2 Body Surface Area Calculated 2.27 m2 :56 Temperature 97.9 f Comments: Method: Oral Pulse 58 /min Comments: Pattern: Regular Respiration Rate 18 /min Comments: Pattern: Unlabored BP Systolic 118 mm[Hg] Comments: Patient Position: Sitting; Cuff Location: Left Arm; Cuff Size: Standard BP Diastolic 74 mm[Hg] Comments: Patient Position: Sitting; Cuff Location: Left Arm; Cuff Size: Standard Weight 221 lb Height 74 in Body Mass Index Calculated 28.37 kg/m2 Body Surface Area Calculated 2.27 m2 :05 Pulse 61 /min Comments: Pattern: Regular Respiration Rate 20 /min Comments: Pattern: Unlabored O2 SAT 99 % Comments: Room air BP Systolic 122 mm[Hg] Comments: Patient Position: Sitting; Cuff Location: Left Arm; Cuff Size: Large BP Diastolic 80 mm[Hg] Comments: Patient Position: Sitting; Cuff Location: Left Arm; Cuff Size: Large Weight 221.1875 lb Height 74 in Body Mass Index Calculated 28.4 kg/m2 Body Surface Area Calculated 2.27 m2 :06 Temperature 97.6 f Comments: Method: Temporal Pulse 76 /min Comments: Pattern: Regular Respiration Rate 16 /min Comments: Pattern: Unlabored O2 SAT 98 % Comments: Room air BP Systolic 124 mm[Hg] Comments: Patient Position: Sitting; Cuff Location: Left Arm; Cuff Size: Standard BP Diastolic 70 mm[Hg] Comments: Patient Position: Sitting; Cuff Location: Left Arm; Cuff Size: Standard Weight 221.1875 lb Height 74 in Body Mass Index Calculated 28.4 kg/m2 Body Surface Area Calculated 2.27 m2 :21 Weight 221.1875 lb Height 74 in Body Mass Index Calculated 28.4 kg/m2 Body Surface Area Calculated 2.27 m2 :22 Comments: orthostaticssupine:124/82 p:53 sittin/80 p:58 standing 140/90 p:60 BP Systolic 124 mm[Hg] Comments: Patient Position: Sitting; Cuff Location: Left Arm; Cuff Size: Standard BP Diastolic 82 mm[Hg] Comments: Patient Position: Sitting; Cuff Location: Left Arm; Cuff Size: Standard Weight 221.1875 lb Height 74 in Body Mass Index Calculated 28.4 kg/m2 Body Surface Area Calculated 2.27 m2 :58 Temperature 221 f Comments: Method: Temporal Pulse 64 /min Comments: Pattern: Regular Respiration Rate 16 /min Comments: Pattern: Unlabored O2 SAT 98 % Comments: Room air BP Systolic 126 mm[Hg] Comments: Patient Position: Sitting; Cuff Location: Left Arm; Cuff Size: Standard BP Diastolic 74 mm[Hg] Comments: Patient Position: Sitting; Cuff Location: Left Arm; Cuff Size: Standard Weight 221.1875 lb Height 74 in Body Mass Index Calculated 28.4 kg/m2 Body Surface Area Calculated 2.27 m2 :49 Pulse 60 /min Comments: Pattern: Regular Respiration Rate 16 /min Comments: Pattern: Unlabored O2 SAT 97 % Comments: Room air BP Systolic 121 mm[Hg] Comments: Patient Position: Sitting; Cuff Location: Left Arm; Cuff Size: Standard BP Diastolic 78 mm[Hg] Comments: Patient Position: Sitting; Cuff Location: Left Arm; Cuff Size: Standard Weight 214.1875 lb Height 74 in Body Mass Index Calculated 27.5 kg/m2 Body Surface Area Calculated 2.24 m2 :38 Temperature 97.8 f Comments: Method: Oral Pulse 68 /min Comments: Pattern: Regular Respiration Rate 20 /min Comments: Pattern: Unlabored BP Systolic 114 mm[Hg] Comments: Patient Position: Sitting; Cuff Location: Left Arm; Cuff Size: Standard BP Diastolic 78 mm[Hg] Comments: Patient Position: Sitting; Cuff Location: Left Arm; Cuff Size: Standard Weight 230 lb Height 74 in Body Mass Index Calculated 29.53 kg/m2 Body Surface Area Calculated 2.31 m2 :37 Temperature 97.5 f Comments: Method: Oral BP Systolic 104 mm[Hg] Comments: Patient Position: Sitting; Cuff Location: Left Arm; Cuff Size: Standard BP Diastolic 64 mm[Hg] Comments: Patient Position: Sitting; Cuff Location: Left Arm; Cuff Size: Standard Weight 230 lb Height 74 in Body Mass Index Calculated 29.53 kg/m2 Body Surface Area Calculated 2.31 m2 :40 Temperature 97.7 f Comments: Method: Oral Pulse 56 /min Comments: Pattern: Irregular Respiration Rate 16 /min Comments: Pattern: Unlabored BP Systolic 122 mm[Hg] Comments: Patient Position: Sitting; Cuff Location: Left Arm; Cuff Size: Standard BP Diastolic 68 mm[Hg] Comments: Patient Position: Sitting; Cuff Location: Left Arm; Cuff Size: Standard Weight 225 lb Height 74 in Body Mass Index Calculated 28.89 kg/m2 Body Surface Area Calculated 2.28 m2 :10 Temperature 97.9 f Comments: Method: Oral Pulse 62 /min Comments: Pattern: Regular Respiration Rate 20 /min Comments: Pattern: Unlabored BP Systolic 108 mm[Hg] Comments: Patient Position: Sitting; Cuff Location: Left Arm; Cuff Size: Standard BP Diastolic 64 mm[Hg] Comments: Patient Position: Sitting; Cuff Location: Left Arm; Cuff Size: Standard Weight 223 lb Height 74 in Body Mass Index Calculated 28.63 kg/m2 Body Surface Area Calculated 2.28 m2 :45 Temperature 97.8 f Comments: Method: Oral Pulse 64 /min Comments: Pattern: Regular Respiration Rate 16 /min Comments: Pattern: Unlabored BP Systolic 116 mm[Hg] Comments: Patient Position: Sitting; Cuff Location: Left Arm; Cuff Size: Standard BP Diastolic 68 mm[Hg] Comments: Patient Position: Sitting; Cuff Location: Left Arm; Cuff Size: Standard Weight 224.6 lb Height 72 in Body Mass Index Calculated 30.46 kg/m2 Body Surface Area Calculated 2.24 m2 :26 Temperature 97.2 f Comments: Method: Oral Pulse 54 /min Comments: Pattern: Regular Respiration Rate 20 /min Comments: Pattern: Unlabored BP Systolic 114 mm[Hg] Comments: Patient Position: Sitting; Cuff Location: Left Arm; Cuff Size: Standard BP Diastolic 70 mm[Hg] Comments: Patient Position: Sitting; Cuff Location: Left Arm; Cuff Size: Standard Weight 226 lb Height 72 in Body Mass Index Calculated 30.65 kg/m2 Body Surface Area Calculated 2.24 m2 :34 Pulse 60 /min Comments: Pattern: Regular Respiration Rate 18 /min Comments: Pattern: Unlabored BP Systolic 120 mm[Hg] Comments: Patient Position: Sitting; Cuff Location: Left Arm; Cuff Size: Large BP Diastolic 68 mm[Hg] Comments: Patient Position: Sitting; Cuff Location: Left Arm; Cuff Size: Large Weight 226.1875 lb Height 72 in Body Mass Index Calculated 30.68 kg/m2 Body Surface Area Calculated 2.24 m2 :25 Pulse 68 /min Comments: Pattern: Regular Respiration Rate 16 /min Comments: Pattern: Unlabored BP Systolic 124 mm[Hg] Comments: Patient Position: Sitting; Cuff Location: Left Arm; Cuff Size: Standard BP Diastolic 82 mm[Hg] Comments: Patient Position: Sitting; Cuff Location: Left Arm; Cuff Size: Standard Weight 238 lb Height 72 in Body Mass Index Calculated 32.28 kg/m2 Body Surface Area Calculated 2.29 m2 :50 Temperature 98.1 f Comments: Method: Oral Pulse 62 /min Comments: Pattern: Regular Respiration Rate 18 /min Comments: Pattern: Unlabored BP Systolic 112 mm[Hg] Comments: Patient Position: Sitting; Cuff Location: Left Arm; Cuff Size: Standard BP Diastolic 70 mm[Hg] Comments: Patient Position: Sitting; Cuff Location: Left Arm; Cuff Size: Standard Weight 238 lb Height 72 in Body Mass Index Calculated 32.28 kg/m2 Body Surface Area Calculated 2.29 m2 :23 Temperature 97.9 f Comments: Method: Oral Pulse 60 /min Comments: Pattern: Irregular Respiration Rate 18 /min Comments: Pattern: Unlabored O2 SAT 97 % Comments: Room air BP Systolic 110 mm[Hg] Comments: Patient Position: Sitting; Cuff Location: Left Arm; Cuff Size: Standard BP Diastolic 72 mm[Hg] Comments: Patient Position: Sitting; Cuff Location: Left Arm; Cuff Size: Standard Weight 240 lb Height 72 in Body Mass Index Calculated 32.55 kg/m2 Body Surface Area Calculated 2.3 m2 Results Date Description Value Details :21 HgA1C , Office (09090) HgA1C , Office 5.6 % (Normal) Range: 4.6 - 7.1 :21 Blood Glucose , Office (76517) Blood Glucose , Office 102 (Normal) [id number] LIPID PANEL ([id number]) Comments: PATIENT WAS FASTINGPERFORMED BY: [id number] [id number] Information: [id number] LDL/HDL Ratio 1.5 {ratio} (Normal) Range: 0.0-3.6 Comments: LDL/HDL Ratio Men Women 1/2 Avg.Risk 1.0 1.5 Av g.Risk 3.6 3.2 2X Avg.Risk 6.2 5.0 3X Avg.Risk 8.0 6.1 LDL Cholesterol Calc 99 mg/dL (Normal) Range: 0-99 VLDL Cholesterol Alexandro 24 mg/dL (Normal) Range: 5-40 HDL Cholesterol 67 mg/dL (Normal) Triglycerides 122 mg/dL (Normal) Range: 0-149 Cholesterol, Total 190 mg/dL (Normal) Range: 100-199 :55 Blood Glucose , Office (32650) Blood Glucose , Office 104 (Normal) :46 HgA1C , Office (04871) HgA1C , Office 5.8 % (Normal) Range: 4.6 - 7.1 :49 Metabolic Panel, Comments: PATIENT NOT FASTINGPERFORMED BY: [employer] Technology[employer] [id number] [facility] [id number] BY: [employer] [id number] Comprehensive ([id number]) ALT (SGPT) 20 [iU]/L (Normal) Range: 0-44 AST (SGOT) 19 [iU]/L (Normal) Range: 0-40 Alkaline Phosphatase 57 [iU]/L (Normal) Range: 39-117 Bilirubin, Total 0.6 mg/dL (Normal) Range: 0.0-1.2 A/G Ratio 2.0 (Normal) Range: 1.2-2.2 Globulin, Total 2.3 g/dL (Normal) Range: 1.5-4.5 Albumin 4.5 g/dL (Normal) Range: 3.5-4.8 Protein, Total 6.8 g/dL (Normal) Range: 6.0-8.5 Calcium 9.5 mg/dL (Normal) Range: 8.6-10.2 Carbon Dioxide, Total 26 mmol/L (Normal) Range: 20-29 Comments: Please note reference interval change Chloride 99 mmol/L (Normal) Range: 96-106 Potassium 4.4 mmol/L (Normal) Range: 3.5-5.2 Sodium 141 mmol/L (Normal) Range: 134-144 BUN/Creatinine Ratio 11 (Normal) Range: 10-24 eGFR If Africn Am 82 mL/min/1.73 (Normal) eGFR If NonAfricn Am 71 mL/min/1.73 (Normal) Creatinine 1.03 mg/dL (Normal) Range: 0.76-1.27 BUN 11 mg/dL (Normal) Range: 8-27 Glucose 143 mg/dL (Abnormal) Range: 65-99 :49 CBC & PLATELETS (AUTO) Comments: PATIENT NOT FASTINGPERFORMED BY: Tellus TechnologyEthan [place] [id number] [facility] [id number] BY: [employer] [id number] (46749) Platelets 216 {x10E3/uL} (Normal) Range: 150-379 RDW 14.4 % (Normal) Range: 12.3-15.4 MCHC 33.7 g/dL (Normal) Range: 31.5-35.7 MCH 28.3 pg (Normal) Range: 26.6-33.0 MCV 84 fL (Normal) Range: 79-97 Hematocrit 41.9 % (Normal) Range: 37.5-51.0 Hemoglobin 14.1 g/dL (Normal) Range: 13.0-17.7 RBC 4.99 {x10E6/uL} (Normal) Range: 4.14-5.80 WBC 3.9 {x10E3/uL} (Normal) Range: 3.4-10.8 :49 PSA (PROSTATE SPECIFIC Comments: PATIENT NOT FASTINGPERFORMED BY: [employer]70 [address] [facility] [id number] BY: Wrnch [address] [id number] ANTIGEN) (V76.44) Prostate Specific Ag, 0.6 ng/mL (Normal) Range: 0.0-4.0 Serum Comments: RAP IndexIA methodology. .According to the [place] [employer] Association, Serum PSA shoulddecrease and remain at undetectable levels after radicalprostatectomy. The AUA defines biochemical recurrence as an initialPSA value 0.2 ng/mL or greater followed by a subsequent confirmatoryPSA value 0.2 ng/mL or greater.Values obtained with d ifferent assay methods or kits cannot be usedinterchangeably. Results cannot be interpreted as absolute evidenceof the presence or absence of malignant disease. :49 TESTOSTERONE FREE (54025) Comments: PATIENT NOT FASTINGPERFORMED BY: [employer]70 [place] [facility] [id number] BY: [employer] [id number] Free Testosterone(Direct) 2.4 pg/mL (Abnormal) Range: 6.6-18.1 :40 HgA1C , Office (97456) HgA1C , Office 5.5 % (Normal) Range: 4.6 - 7.1 :40 Blood Glucose , Office (36803) Blood Glucose , Office 117 (Normal) :54 TESTOSTERONE FREE (65552) Comments: PATIENT NOT FASTINGPERFORMED BY: [facility] [id number] Free Testosterone(Direct) 3.7 pg/mL (Abnormal) Range: 6.6-18.1 :08 HgA1C , Office (39490) HgA1C , Office 5.6 % (Normal) Range: 4.6 - 7.1 :08 Blood Glucose , Office (28749) Blood Glucose , Office 92 (Normal) :12 Immunoglobulins G/A/M/E Comments: Is Patient Fasting? [facility] (refer to report for specific site)refer to report for address and phone number; Another doc IMMUNO E 2173 < 1 {IU/mL} (Normal) Range: 0-100 IMMUNOGL M 64 mg/dL (Normal) Range: 15-143 IMMUNO A 130 mg/dL (Normal) Range: 61-437 IMMUNO G 817 mg/dL (Normal) Range: 700-1600 :12 Quantiferon TB-Gold Comments: Is Patient Fasting? [facility] (refer to report for specific site)refer to report for address and phone number QFT TB INTER Comment (Normal) Comments: The QuantiFERON TB Gold (in Tube) assay is intended for useas an aid in the diagnosis of TB infection. Negativeresults suggest that there is no TB infection. In patientswith high suspicion of exposure, a negative test should berepeated. A positive test indicates infection withMycobacterium tuberculosis. Among individuals withouttuberculosis infection, a positive test may be due toexposure to M. k[place] ii, M. szulgai or M. marinum. On theInternet, go to cdc.gov/tb for further details.Performed at: [facility] [id number] Director: Rodo Gonzalez PhD, Phone: [phone] QFT AG - NIL 0.02 {IU/mL} (Normal) QFT MITOGEN SIRISHA > 10.00 {IU/mL} (Normal) QFT NIL VALUE 0.07 {IU/mL} (Normal) QFT TB AB VALUE 0.09 {IU/mL} (Normal) QFT TB POS CRIT Comment (Normal) Comments: To be considered positive a specimen should have a TB Agminus Nil value greater than or equal to 0.35 IU/mL and inaddition the TB Ag minus Nil value must be greater than orequal to 25% of the Nil value. There may be insufficientinformation in these values to differentiate between somenegative and some indeterminate test values. QFT TB GOLD Negative (Normal) Comments: The specimen received for QuantiFERON testing was incubatedby the ordering institution. Specific procedures outlinedin our Directory of Services and in the package insert forthe QuantiFERON Gold (In ) test must be followed toenable for proper stimulation of cells for the productionof interferon gamma. 66-Mjs-65556:00 Sputum Culture (19825) Comments: PERFORMED BY: Tellus TechnologyAtlantic Rehabilitation InstituteTltzth6379 [facility] [id number] Information: SRC:SP Result 1 RRF (Normal) Comments: Routine respiratory lakeisha Lower Respiratory Culture Final report (Normal) 20-Jlr-74706:34 Urinalysis, Office (60161) UA - LEUKOCYTE ESTERASE Negative (Normal) UA - NITRITE Negative (Normal) URINE UROBILINGN CHAVEZ TIMED Normal mg/dL (Normal) UA - PROTEIN Negative mg/dL (Normal) UA - PH 7 (Normal) UA - BLOOD Negative (Normal) UA - SPECIFIC GRAVITY 1.020 (Normal) UA - KETONES Negative mg/dL (Normal) UA - BILIRUBIN Negative (Normal) UA - GLUCOSE Negative (Normal) 85-Fsm-248650:56 TESTOSTERONE FREE (42123) Comments: Around February 08 2017; PATIENT NOT FASTINGPERFORMED BY: [employer] [id number]; can review on 02/16 Free Testosterone(Direct) 9.8 pg/mL (Normal) Range: 6.6-18.1 45-Pak-81477:43 TESTOSTERONE FREE (67623) Comments: today; PATIENT NOT FASTINGPERFORMED BY: RAREFORM Hrrlrvzcnb[address] [id number] Free Testosterone(Direct) 2.9 pg/mL (Abnormal) Range: 6.6-18.1 :10 HgA1C , Office (65451) HgA1C , Office 5.8 % (Normal) Range: 4.6 - 7.1 :12 Systemic Lupus Profile Comments: PATIENT NOT FASTINGPERFORMED BY: Tellus TechnologyAtlantic Rehabilitation InstituteHlgraz[address] [place] [address] [id number] BY: [employer] [id number] (30832) Anti-DNA (DS) Ab Qn <1 {IU/mL} (Normal) Range: 0-9 Comments: Negative <5 Equivocal 5 - 9 Positive >9 Sjogren's Anti-SS-B <0.2 {AI} (Normal) Range: 0.0-0.9 Sjogren's Anti-SS-A <0.2 {AI} (Normal) Range: 0.0-0.9 Antichromatin Antibodies <0.2 {AI} (Normal) Range: 0.0-0.9 RA Latex Turbid. <10.0 {IU/mL} (Normal) Range: 0.0-13.9 Dahl Antibodies <0.2 {AI} (Normal) Range: 0.0-0.9 CHIEF ENGINEER PRODUCTION Antibodies <0.2 {AI} (Normal) Range: 0.0-0.9 :12 UPEP (29084) Comments: PATIENT NOT FASTINGPERFORMED BY: Tellus TechnologyAtlantic Rehabilitation InstituteZcqkpn0231 [facility] [id number] BY: [address] [id number] Please note: SPRCS (Normal) Comments: Protein electrophoresis scan will follow via computer, mail, orcourier delivery. M-Jesu, % Not Observed % (Normal) Gamma Globulin, U 12.2 % (Normal) Beta Globulin, U 26.9 % (Normal) Gaiwp-1-Falyrpxj, U 15.7 % (Normal) Izwfi-9-Psppbpyn, U 9.5 % (Normal) Albumin, U 35.6 % (Normal) Protein,Total,Urine 7.9 mg/dL (Normal) :12 urine immunofixation (03484) Comments: PATIENT NOT FASTINGPERFORMED BY: AdScoreE[place] 8963670 [facility] [id number] BY: [address] [id number] RAHUL Interpretation:U UPEIP (Normal) Comments: No monoclonality detected. 5-Pgh-553005:12 serum free light chains Comments: PATIENT NOT FASTINGPERFORMED BY: [place]us TechnologyE[place] 8963670 [facility] [id number] BY: [address] [id number] (54555) [place]/Lambda Ratio,S 1.14 (Normal) Range: 0.26-1.65 Free Lambda Lt Chains,S 15.59 mg/L (Normal) Range: 5.71-26.30 Free [place] Lt Chains,S 17.74 mg/L (Normal) Range: 3.30-19.40 :12 serum immunofixation (10457) Comments: PATIENT NOT FASTINGPERFORMED BY: [place] Technology[place] 8963670 [facility] [id number] BY: [address] [id number] Immunoglobulin M, Qn, Serum 73 mg/dL (Normal) Range: 15-143 Immunoglobulin A, Qn, Serum 145 mg/dL (Normal) Range: 61-437 Immunoglobulin G, Qn, Serum 868 mg/dL (Normal) Range: 700-1600 Immunofixation Result, Serum UPEIP (Normal) Comments: No monoclonality detected. :12 TSH (37283) Comments: PATIENT NOT FASTINGPERFORMED BY: [employer] Technology[address] [id number] BY: [address] [id number] TSH 3.820 {uIU/mL} (Normal) Range: 0.450-4.500 :12 CCP ANTIBODY (67177) Comments: PATIENT NOT FASTINGPERFORMED BY: [place]Score[place] 8963670 [facility] [id number] BY: [employer] [id number] CCP Antibodies IgG/IgA 6 {units} (Normal) Range: 0-19 Comments: Negative <20 Weak positive 20 - 39 Moderate positive 40 - 59 Strong positive >59 :12 VITAMIN B12 AND FOLATES Comments: PATIENT NOT FASTINGPERFORMED BY: [place] Technology[place] 8963670 [facility] [id number] BY: [employer] [id number] (17460) Folate (Folic Acid), Serum >20.0 ng/mL (Normal) Comments: A serum folate concentration of less than 3.1 ng/mL isconsidered to represent clinical deficiency. Vitamin B12 398 pg/mL (Normal) Range: 211-946 :12 Metabolic Panel, Comments: PATIENT NOT FASTINGPERFORMED BY: Kicksend Wqqyqq1999 [facility] [id number] BY: [employer] [id number] [facility] (97146) ALT (SGPT) 29 [iU]/L (Normal) Range: 0-44 AST (SGOT) 25 [iU]/L (Normal) Range: 0-40 Alkaline Phosphatase, S 47 [iU]/L (Normal) Range: 39-117 Bilirubin, Total 0.8 mg/dL (Normal) Range: 0.0-1.2 A/G Ratio 2.1 (Normal) Range: 1.1-2.5 Globulin, Total 2.3 g/dL (Normal) Range: 1.5-4.5 Albumin, Serum 4.9 g/dL (Abnormal) Range: 3.5-4.8 Protein, Total, Serum 7.2 g/dL (Normal) Range: 6.0-8.5 Calcium, Serum 9.2 mg/dL (Normal) Range: 8.6-10.2 Carbon Dioxide, Total 22 mmol/L (Normal) Range: 18-29 Chloride, Serum 98 mmol/L (Normal) Range: 96-106 Potassium, Serum 4.7 mmol/L (Normal) Range: 3.5-5.2 Sodium, Serum 139 mmol/L (Normal) Range: 134-144 BUN/Creatinine Ratio 12 (Normal) Range: 10-22 eGFR If Africn Am 93 mL/min/1.73 (Normal) eGFR If NonAfricn Am 81 mL/min/1.73 (Normal) Creatinine, Serum 0.94 mg/dL (Normal) Range: 0.76-1.27 BUN 11 mg/dL (Normal) Range: 8-27 Glucose, Serum 108 mg/dL (Abnormal) Range: 65-99 2-Cfs-450577:12 MAGNESIUM (95975) Comments: PATIENT NOT FASTINGPERFORMED BY: [employer] Nmrohr4482 [facility] [id number] BY: [address] [id number] Magnesium, Serum 2.0 mg/dL (Normal) Range: 1.6-2.3 0-Uct-434156:12 Sedimentation Rate-ESR Comments: PATIENT NOT FASTINGPERFORMED BY: [employer]70 [facility] [id number] BY: [address] [id number] (34391) Sedimentation Rate-Westergren 4 mm/h (Normal) Range: 0-30 9-Ehn-085714:12 ASHOK (ANTINUCLEAR ANTIBODY) Comments: PATIENT NOT FASTINGPERFORMED BY: AdScoreAtlantic Rehabilitation InstituteRsxeom5652 [facility] [id number] BY: [address] [id number] (07838) ASHOK Direct Negative (Normal) 8-Djd-649572:12 C-REACTIVE PROTEIN (71912) Comments: PATIENT NOT FASTINGPERFORMED BY: [employer] Svwvnx6719 [facility] [id number] BY: [address] [id number] C-Reactive Protein, Quant 0.9 mg/L (Normal) Range: 0.0-4.9 5-Xte-746373:12 CALCIFIDIOL (88052) VIT D Comments: PATIENT NOT FASTINGPERFORMED BY: Kicksend Ngxcvp9809 [facility] [id number] BY: [employer] [id number] 25 Vitamin D, 25-Hydroxy 30.6 ng/mL (Normal) Range: 30.0-100.0 Comments: Vitamin D deficiency has been defined by the [place] of[place]icine and an Endocrine Society practice guideline as alevel of serum 25-OH vitamin D less than 20 ng/mL (1,2).The Endocrine Society went on to further define vitamin Dinsufficiency as a level between 21 and 29 ng/mL (2).1. IOM ([place] of Medicine). 2010. Dietary reference intakes for calcium and D. [place]: The National Academies Press.2. Zaida MF, Kellie LINARES, Davis HITCHCOCK, et al. Evaluation, treatment, and prevention of vitamin D deficiency: an Endocrine Society clinical practice guideline. JCEM. 2010; 96(7):1911-30. 4-Tin-553734:12 TESTOSTERONE FREE (32029) Comments: PATIENT NOT FASTINGPERFORMED BY: Kicksend Juhios8655 [facility] [id number] BY: [employer] [id number] Free Testosterone(Direct) 4.6 pg/mL (Abnormal) Range: 6.6-18.1 8-Qbu-291990:04 Urinalysis, Office (79872) UA - LEUKOCYTE ESTERASE Negative (Normal) UA - NITRITE Negative (Normal) URINE UROBILINGN CHAVEZ TIMED Normal mg/dL (Normal) UA - PROTEIN Negative mg/dL (Normal) UA - PH 8 (Abnormal) UA - BLOOD Negative (Normal) UA - SPECIFIC GRAVITY 1.020 (Normal) UA - KETONES Negative mg/dL (Normal) UA - BILIRUBIN Negative (Normal) UA - GLUCOSE Negative (Normal) 63-Fzd-421226:59 PSA (PROSTATE SPECIFIC Comments: PATIENT WAS FASTINGPERFORMED BY: Action6370 [facility]First[facility] [id number] ANTIGEN) (V76.44) Prostate Specific Ag, 0.6 ng/mL (Normal) Range: 0.0-4.0 Serum Comments: Kaylee ECLIA methodology. .According to the [place] [employer] Association, Serum PSA shoulddecrease and remain at undetectable levels after radicalprostatectomy. The AUA defines biochemical recurrence as an initialPSA value 0.2 ng/mL or greater followed by a subsequent confirmatoryPSA value 0.2 ng/mL or greater.Values obtained with d ifferent assay methods or kits cannot be usedinterchangeably. Results cannot be interpreted as absolute evidenceof the presence or absence of malignant disease. :59 MICROALBUMIN: CREATININE RATIO Comments: PATIENT WAS FASTINGPERFORMED BY: [employer]70 [facility].comFirstHealth [facility] Hospital [id number] (35148) AND (09422) Microalb/Creat Ratio <6.1 {mg/g_creat} (Normal) Range: 0.0-30.0 Microalbumin, Urine <3.0 ug/mL (Normal) Creatinine, Urine 49.4 mg/dL (Normal) :59 HGB A1C (18983) Comments: PATIENT WAS FASTINGPERFORMED BY: Action6370 [place] [facility] [id number] Hemoglobin A1c 6.0 % (Abnormal) Range: 4.8-5.6 Comments: . Pre-diabetes: 5.7 - 6.4 Diabetes: >6.4 Glycemic control for adults with diabetes: <7.0 :59 VITAMIN B12 AND FOLATES Comments: PATIENT WAS FASTINGPERFORMED BY: [employer]70 [facility] [id number] (60084) Folate (Folic Acid), Serum 17.4 ng/mL (Normal) Comments: A serum folate concentration of less than 3.1 ng/mL isconsidered to represent clinical deficiency. Vitamin B12 403 pg/mL (Normal) Range: 211-946 11-Bhy-458628:59 CALCIFEDIOL (02293) Comments: PATIENT WAS FASTINGPERFORMED BY: CB LabM[facility]6370 [facility] [id number] Vitamin D, 25-Hydroxy 35.9 ng/mL (Normal) Range: 30.0-100.0 Comments: Vitamin D deficiency has been defined by the [place] of[place]icine and an Endocrine Society practice guideline as alevel of serum 25-OH vitamin D less than 20 ng/mL (1,2).The Endocrine Society went on to further define vitamin Dinsufficiency as a level between 21 and 29 ng/mL (2).1. IOM ([place] of Medicine). 2010. Dietary reference intakes for calcium and D. [place]: The National AcademWelliko Press.2. Zaida MF, Kellie LINARES, Davis HITCHCOCK, et al. Evaluation, treatment, and prevention of vitamin D deficiency: an Endocrine Society clinical practice guideline. JCEM. 2010; 96(7):1911-30. :59 TSH (THYROID STIMULATING Comments: PATIENT WAS FASTINGPERFORMED BY: Image InsightMclaren Bay Special Care Hospital6370 [facility] [id number] HORMONE) (65423) TSH 3.870 {uIU/mL} (Normal) Range: 0.450-4.500 :59 LIPID PANEL (75127) Comments: PATIENT WAS FASTINGPERFORMED BY: Image InsightMclaren Bay Special Care Hospital6370 [facility] [id number] LDL/HDL Ratio 1.7 {ratio_units} (Normal) Range: 0.0-3.6 Comments: LDL/HDL Ratio Men Women 1/2 Avg.Risk 1.0 1.5 Av g.Risk 3.6 3.2 2X Avg.Risk 6.2 5.0 3X Avg.Risk 8.0 6.1 LDL Cholesterol Calc 101 mg/dL (Abnormal) Range: 0-99 VLDL Cholesterol Alexandro 27 mg/dL (Normal) Range: 5-40 HDL Cholesterol 60 mg/dL (Normal) Comments: According to ATP-III Guidelines, HDL-C >59 mg/dL is considered anegative risk factor for CHD. Triglycerides 136 mg/dL (Normal) Range: 0-149 Cholesterol, Total 188 mg/dL (Normal) Range: 100-199 :59 METABOLIC PANEL, COMPREHENSIVE Comments: PATIENT WAS FASTINGPERFORMED BY: LabCoAtlantic Rehabilitation InstituteJdbpxn8921 [facility] [id number] (77827) ALT (SGPT) 24 [iU]/L (Normal) Range: 0-44 AST (SGOT) 19 [iU]/L (Normal) Range: 0-40 Alkaline Phosphatase, S 48 [iU]/L (Normal) Range: 39-117 Bilirubin, Total 0.7 mg/dL (Normal) Range: 0.0-1.2 A/G Ratio 2.0 (Normal) Range: 1.1-2.5 Globulin, Total 2.3 g/dL (Normal) Range: 1.5-4.5 Albumin, Serum 4.5 g/dL (Normal) Range: 3.5-4.8 Protein, Total, Serum 6.8 g/dL (Normal) Range: 6.0-8.5 Calcium, Serum 9.4 mg/dL (Normal) Range: 8.6-10.2 Carbon Dioxide, Total 25 mmol/L (Normal) Range: 18-29 Chloride, Serum 96 mmol/L (Abnormal) Range: 97-108 Potassium, Serum 4.4 mmol/L (Normal) Range: 3.5-5.2 Sodium, Serum 140 mmol/L (Normal) Range: 134-144 BUN/Creatinine Ratio 16 (Normal) Range: 10-22 eGFR If Africn Am 100 mL/min/1.73 (Normal) eGFR If NonAfricn Am 87 mL/min/1.73 (Normal) Creatinine, Serum 0.86 mg/dL (Normal) Range: 0.76-1.27 BUN 14 mg/dL (Normal) Range: 8-27 Glucose, Serum 98 mg/dL (Normal) Range: 65-99 09-Wlg-256740:59 CBC, PLATELETS & AUT DIFF Comments: PATIENT WAS FASTINGPERFORMED BY: LabM[facility] Hospital6370 [facility] [id number] Information: [id number] (00223) Immature Grans (Abs) 0.0 {x10E3/uL} (Normal) Range: 0.0-0.1 Immature Granulocytes 0 % (Normal) Baso (Absolute) 0.1 {x10E3/uL} (Normal) Range: 0.0-0.2 Eos (Absolute) 0.2 {x10E3/uL} (Normal) Range: 0.0-0.4 Monocytes(Absolute) 0.4 {x10E3/uL} (Normal) Range: 0.1-0.9 Lymphs (Absolute) 2.1 {x10E3/uL} (Normal) Range: 0.7-3.1 Neutrophils (Absolute) 2.0 {x10E3/uL} (Normal) Range: 1.4-7.0 Basos 1 % (Normal) Eos 4 % (Normal) Monocytes 9 % (Normal) Lymphs 44 % (Normal) Neutrophils 42 % (Normal) Platelets 192 {x10E3/uL} (Normal) Range: 150-379 RDW 14.0 % (Normal) Range: 12.3-15.4 MCHC 33.8 g/dL (Normal) Range: 31.5-35.7 MCH 28.1 pg (Normal) Range: 26.6-33.0 MCV 83 fL (Normal) Range: 79-97 Hematocrit 43.2 % (Normal) Range: 37.5-51.0 Hemoglobin 14.6 g/dL (Normal) Range: 12.6-17.7 RBC 5.19 {x10E6/uL} (Normal) Range: 4.14-5.80 WBC 4.7 {x10E3/uL} (Normal) Range: 3.4-10.8 32-Zdh-046178:19 URINE EMMA CULTURE-IDENTIFICATN Comments: PATIENT NOT FASTINGPERFORMED BY: LabCoAtlantic Rehabilitation InstitutePchoeb7574 [facility] [id number] Information: [id number] (49297) Result 1 NG36 (Normal) Comments: No growth in 36 - 48 hours. Urine Culture,Comprehensive Final report (Normal) 82-Cja-10108:23 Urinalysis, Office (96615) UA - LEUKOCYTE ESTERASE Negative (Normal) UA - NITRITE Negative (Normal) URINE UROBILINGN CHAVEZ TIMED 2 mg/dL (Normal) UA - PROTEIN Negative mg/dL (Normal) UA - PH 8.0 (Normal) UA - BLOOD Negative (Normal) UA - SPECIFIC GRAVITY 1.020 (Normal) UA - KETONES Negative mg/dL (Normal) UA - BILIRUBIN Negative (Normal) UA - GLUCOSE Negative (Normal) 4-Dzt-969522:07 Microscopic Examination Comments: PATIENT NOT FASTINGPERFORMED BY: Image InsightMclaren [facility] Hospital6370 [facility] [id number] Bacteria None seen (Normal) Mucus Threads Present (Normal) Epithelial Cells (non renal) 0-10 {/hpf} (Normal) Range: 0 - 10 RBC None seen {/hpf} (Normal) Range: 0 - 2 WBC 0-5 {/hpf} (Normal) Range: 0 - 5 1-Uwn-740013:55 Hemoglobin Glyclated (HGB A1C) Comments: PATIENT WAS FASTINGPERFORMED BY: [facility]6370 [facility] [id number] (09657) Hemoglobin A1c 5.9 % (Abnormal) Range: 4.8-5.6 Comments: . Pre-diabetes: 5.7 - 6.4 Diabetes: >6.4 Glycemic control for adults with diabetes: <7.0 7-Aus-161894:55 LIPID PANEL (51407) Comments: PATIENT WAS FASTINGPERFORMED BY: [facility]6370 [facility] [id number] LDL/HDL Ratio 1.8 {ratio_units} (Normal) Range: 0.0-3.6 Comments: LDL/HDL Ratio Men Women 1/2 Avg.Risk 1.0 1.5 Av g.Risk 3.6 3.2 2X Avg.Risk 6.2 5.0 3X Avg.Risk 8.0 6.1 LDL Cholesterol Calc 111 mg/dL (Abnormal) Range: 0-99 VLDL Cholesterol Alexandro 22 mg/dL (Normal) Range: 5-40 HDL Cholesterol 62 mg/dL (Normal) Comments: According to ATP-III Guidelines, HDL-C >59 mg/dL is considered anegative risk factor for CHD. Triglycerides 112 mg/dL (Normal) Range: 0-149 Cholesterol, Total 195 mg/dL (Normal) Range: 100-199 2-Xpu-490767:07 URINALYSIS, W/ MICRO Comments: PATIENT NOT FASTINGPERFORMED BY: [place] 7456970 [facility] [id number] Information: [id number] (69460) Microscopic Examination See below: (Normal) Comments: Microscopic was indicated and was performed. Microscopic Examination MICRON (Normal) Comments: Microscopic follows if indicated. Nitrite, Urine Negative (Normal) Urobilinogen,Semi-Qn 0.2 mg/dL (Normal) Range: 0.2-1.0 Bilirubin Negative (Normal) Occult Blood Negative (Normal) Ketones Negative (Normal) Glucose Negative (Normal) Protein Negative (Normal) WBC Esterase Negative (Normal) Appearance Clear (Normal) Urine-Color Yellow (Normal) pH 7.0 (Normal) Range: 5.0-7.5 Specific [place] 1.015 (Normal) Range: 1.005-1.030 1-Gil-640154:55 METABOLIC PANEL, COMPREHENSIVE Comments: PATIENT WAS FASTINGPERFORMED BY: LabCoAtlantic Rehabilitation InstituteMscaqe7686 [facility] [id number] (80900) ALT (SGPT) 27 [iU]/L (Normal) Range: 0-44 AST (SGOT) 23 [iU]/L (Normal) Range: 0-40 Alkaline Phosphatase, S 41 [iU]/L (Normal) Range: 39-117 Bilirubin, Total 0.8 mg/dL (Normal) Range: 0.0-1.2 A/G Ratio 2.3 (Normal) Range: 1.1-2.5 Globulin, Total 2.1 g/dL (Normal) Range: 1.5-4.5 Albumin, Serum 4.8 g/dL (Normal) Range: 3.5-4.8 Protein, Total, Serum 6.9 g/dL (Normal) Range: 6.0-8.5 Calcium, Serum 9.3 mg/dL (Normal) Range: 8.6-10.2 Carbon Dioxide, Total 23 mmol/L (Normal) Range: 18-29 Chloride, Serum 99 mmol/L (Normal) Range: 97-108 Potassium, Serum 4.4 mmol/L (Normal) Range: 3.5-5.2 Sodium, Serum 139 mmol/L (Normal) Range: 134-144 BUN/Creatinine Ratio 11 (Normal) Range: 10-22 eGFR If Africn Am 92 mL/min/1.73 (Normal) eGFR If NonAfricn Am 79 mL/min/1.73 (Normal) Creatinine, Serum 0.96 mg/dL (Normal) Range: 0.76-1.27 BUN 11 mg/dL (Normal) Range: 8-27 Glucose, Serum 113 mg/dL (Abnormal) Range: 65-99 :55 CBC with auto diff Comments: PATIENT WAS FASTINGPERFORMED BY: [facility]6370 [facility] [id number] Information: [id number] (37076) Immature Grans (Abs) 0.0 {x10E3/uL} Range: 0.0-0.1 (Normal) Immature Granulocytes 0 % (Normal) Baso (Absolute) 0.0 {x10E3/uL} Range: 0.0-0.2 (Normal) Eos (Absolute) 0.1 {x10E3/uL} Range: 0.0-0.4 (Normal) Monocytes(Absolute) 0.4 {x10E3/uL} Range: 0.1-0.9 (Normal) Lymphs (Absolute) 2.0 {x10E3/uL} Range: 0.7-3.1 (Normal) Neutrophils (Absolute) 2.6 {x10E3/uL} Range: 1.4-7.0 (Normal) Basos 1 % (Normal) Eos 3 % (Normal) Monocytes 9 % (Normal) Lymphs 38 % (Normal) Neutrophils 49 % (Normal) Platelets 219 {x10E3/uL} Range: 150-379 (Normal) RDW 13.7 % (Normal) Range: 12.3-15.4 MCHC 33.9 g/dL (Normal) Range: 31.5-35.7 MCH 29.0 pg (Normal) Range: 26.6-33.0 MCV 86 fL (Normal) Range: 79-97 Hematocrit 44.6 % (Normal) Range: 37.5-51.0 Hemoglobin 15.1 g/dL (Normal) Range: 12.6-17.7 RBC 5.21 {x10E6/uL} Range: 4.14-5.80 (Normal) WBC 5.2 {x10E3/uL} Range: 3.4-10.8 (Normal) LDH 99 [iU]/L (Abnormal) Comments: PATIENT NOT FASTINGPERFORMED BY: [facility]6370 [facility] [id number] Information: [id number] :41 Range: 121-224 :16 HEPATIC FUNCTION PANEL Comments: PATIENT NOT FASTINGPERFORMED BY: [employer]70 [place] [facility] [id number] BY: [employer] [id number] (49863) ALT (SGPT) 17 [iU]/L (Normal) Range: 0-44 AST (SGOT) 21 [iU]/L (Normal) Range: 0-40 Alkaline Phosphatase, S 45 [iU]/L (Normal) Range: 39-117 Bilirubin, Direct 0.23 mg/dL (Normal) Range: 0.00-0.40 Bilirubin, Total 0.7 mg/dL (Normal) Range: 0.0-1.2 Albumin, Serum 4.3 g/dL (Normal) Range: 3.5-4.8 Protein, Total, Serum 6.2 g/dL (Normal) Range: 6.0-8.5 :16 PSA (PROSTATE SPECIFIC Comments: PATIENT NOT FASTINGPERFORMED BY: Action6370 [place] [facility] [id number] BY: [employer] [id number] ANTIGEN) (V76.44) Prostate Specific Ag, 0.5 ng/mL (Normal) Range: 0.0-4.0 Serum Comments: Kaylee ECLIA methodology. .According to the [place] [employer], Serum PSA shoulddecrease and remain at undetectable levels after radicalprostatectomy. The AUA defines biochemical recurrence as an initialPSA value 0.2 ng/mL or greater followed by a subsequent confirmatoryPSA value 0.2 ng/mL or greater.Values obtained with d ifferent assay methods or kits cannot be usedinterchangeably. Results cannot be interpreted as absolute evidenceof the presence or absence of malignant disease. :16 CBC, PLATELETS & MANUAL Comments: PATIENT NOT FASTINGPERFORMED BY: Action6370 [place] [facility] [id number] BY: [employer] [id number] Information: [id number] DIFF (12055) Immature Grans (Abs) 0.0 {x10E3/uL} (Normal) Range: 0.0-0.1 Immature Granulocytes 0 % (Normal) Baso (Absolute) 0.0 {x10E3/uL} (Normal) Range: 0.0-0.2 Eos (Absolute) 0.2 {x10E3/uL} (Normal) Range: 0.0-0.4 Monocytes(Absolute) 0.4 {x10E3/uL} (Normal) Range: 0.1-0.9 Lymphs (Absolute) 1.8 {x10E3/uL} (Normal) Range: 0.7-3.1 Neutrophils (Absolute) 1.9 {x10E3/uL} (Normal) Range: 1.4-7.0 Basos 1 % (Normal) Eos 5 % (Normal) Monocytes 8 % (Normal) Lymphs 41 % (Normal) Neutrophils 45 % (Normal) Platelets 205 {x10E3/uL} (Normal) Range: 150-379 RDW 13.3 % (Normal) Range: 12.3-15.4 MCHC 33.0 g/dL (Normal) Range: 31.5-35.7 MCH 27.7 pg (Normal) Range: 26.6-33.0 MCV 84 fL (Normal) Range: 79-97 Hematocrit 43.3 % (Normal) Range: 37.5-51.0 Hemoglobin 14.3 g/dL (Normal) Range: 12.6-17.7 RBC 5.17 {x10E6/uL} (Normal) Range: 4.14-5.80 WBC 4.3 {x10E3/uL} (Normal) Range: 3.4-10.8 :16 TESTOSTERONE FREE (80437) Comments: PATIENT NOT FASTINGPERFORMED BY: [facility] Iyvamk8920 [facility] [id number] BY: [facility] Yrxjfasfjo9242 [facility][1] [id number] Free Testosterone(Direct) 11.3 pg/mL (Normal) Range: 6.6-18.1 ACTH, Plasma 45.1 pg/mL (Normal) Comments: PATIENT NOT FASTINGPERFORMED BY: [place] 7456970 [facility] [id number] Information: [id number] ORDER 2:15 Range: 7.2-63.3 Comments: ACTH reference interval for samples collected between 7 and 10 AM. 51-Bfw-270394:55 FSH and LH Comments: PATIENT NOT FASTINGPERFORMED BY: [place] 7456970 [facility] [id number] BY: [address] [id number] Information: [id number] FSH 9.5 m[iU]/mL (Normal) Range: 1.5-12.4 LH 3.1 m[iU]/mL (Normal) Range: 1.7-8.6 24-Glq-902890:55 Testosterone, Free, Direct Comments: PATIENT NOT FASTINGPERFORMED BY: [place] 7456970 [facility] [id number] BY: [address] [id number] Free Testosterone(Direct) 4.4 pg/mL (Abnormal) Range: 6.6-18.1 20-Brq-059980:37 HgA1C , Office (85103) HgA1C , Office 5.7 % (Normal) Range: 4.6 - 7.1 4-Uoi-483731:17 ACTH, Plasma 71.3 pg/mL (Abnormal) Comments: PATIENT WAS FASTINGPERFORMED BY: [place] 7456970 [facility] [id number] Range: 7.2-63.3 Comments: ACTH reference interval for samples collected between 7 and 10 AM. :17 CBC With Differential/Platelet Comments: PATIENT WAS FASTINGPERFORMED BY: [place] 7456970 [facility] [id number] Information: [id number], [id number] Immature Grans (Abs) 0.0 {x10E3/uL} (Normal) Range: 0.0-0.1 Immature Granulocytes 0 % (Normal) Baso (Absolute) 0.0 {x10E3/uL} (Normal) Range: 0.0-0.2 Eos (Absolute) 0.2 {x10E3/uL} (Normal) Range: 0.0-0.4 Monocytes(Absolute) 0.4 {x10E3/uL} (Normal) Range: 0.1-0.9 Lymphs (Absolute) 1.8 {x10E3/uL} (Normal) Range: 0.7-3.1 Neutrophils (Absolute) 1.8 {x10E3/uL} (Normal) Range: 1.4-7.0 Basos 1 % (Normal) Eos 4 % (Normal) Monocytes 9 % (Normal) Lymphs 42 % (Normal) Neutrophils 44 % (Normal) Platelets 212 {x10E3/uL} (Normal) Range: 150-379 RDW 14.1 % (Normal) Range: 12.3-15.4 MCHC 33.1 g/dL (Normal) Range: 31.5-35.7 MCH 27.7 pg (Normal) Range: 26.6-33.0 MCV 84 fL (Normal) Range: 79-97 Hematocrit 42.9 % (Normal) Range: 37.5-51.0 Hemoglobin 14.2 g/dL (Normal) Range: 12.6-17.7 RBC 5.12 {x10E6/uL} (Normal) Range: 4.14-5.80 WBC 4.2 {x10E3/uL} (Normal) Range: 3.4-10.8 8-Ltm-634460:17 Comp. Metabolic Panel (14) Comments: PATIENT WAS FASTINGPERFORMED BY: [facility]6370 [facility] [id number] ALT (SGPT) 16 [iU]/L (Normal) Range: 0-44 AST (SGOT) 20 [iU]/L (Normal) Range: 0-40 Alkaline Phosphatase, S 44 [iU]/L (Normal) Range: 39-117 Bilirubin, Total 0.7 mg/dL (Normal) Range: 0.0-1.2 A/G Ratio 2.4 (Normal) Range: 1.1-2.5 Globulin, Total 2.0 g/dL (Normal) Range: 1.5-4.5 Albumin, Serum 4.7 g/dL (Normal) Range: 3.5-4.8 Protein, Total, Serum 6.7 g/dL (Normal) Range: 6.0-8.5 Calcium, Serum 9.5 mg/dL (Normal) Range: 8.6-10.2 Carbon Dioxide, Total 25 mmol/L (Normal) Range: 18-29 Chloride, Serum 97 mmol/L (Normal) Range: 97-108 Potassium, Serum 4.5 mmol/L (Normal) Range: 3.5-5.2 Sodium, Serum 138 mmol/L (Normal) Range: 134-144 BUN/Creatinine Ratio 13 (Normal) Range: 10-22 eGFR If Africn Am 84 mL/min/1.73 (Normal) eGFR If NonAfricn Am 73 mL/min/1.73 (Normal) Creatinine, Serum 1.03 mg/dL (Normal) Range: 0.76-1.27 BUN 13 mg/dL (Normal) Range: 8-27 Glucose, Serum 106 mg/dL (Abnormal) Range: 65-99 3-Fib-064394:17 Lipid Panel With LDL/HDL Comments: PATIENT WAS FASTINGPERFORMED BY: [place] [id number] Ratio LDL/HDL Ratio 1.7 {ratio_units} (Normal) Range: 0.0-3.6 Comments: LDL/HDL Ratio Men Women 1/2 Avg.Risk 1.0 1.5 Av g.Risk 3.6 3.2 2X Avg.Risk 6.2 5.0 3X Avg.Risk 8.0 6.1 LDL Cholesterol Calc 118 mg/dL (Abnormal) Range: 0-99 VLDL Cholesterol Alexandro 19 mg/dL (Normal) Range: 5-40 HDL Cholesterol 69 mg/dL (Normal) Comments: According to ATP-III Guidelines, HDL-C >59 mg/dL is considered anegative risk factor for CHD. Triglycerides 93 mg/dL (Normal) Range: 0-149 Cholesterol, Total 206 mg/dL (Abnormal) Range: 100-199 7-Jsp-783248:17 Microalb/Creat Ratio, Randm Ur Comments: PATIENT WAS FASTINGPERFORMED BY: [employer]70 [facility].comFirst[facility] [id number] Microalb/Creat Ratio 4.4 {mg/g_creat} (Normal) Range: 0.0-30.0 Microalbumin, Urine 3.9 ug/mL (Normal) Range: 0.0-17.0 Creatinine, Urine 89.2 mg/dL (Normal) Range: 22.0-328.0 :17 Microscopic Examination Comments: PATIENT WAS FASTINGPERFORMED BY: [employer] Jbydsv9905 [place] [facility] [id number] Bacteria None seen (Normal) Mucus Threads Present (Normal) Epithelial Cells (non renal) 0-10 {/hpf} (Normal) Range: 0 - 10 RBC None seen {/hpf} (Normal) Range: 0 - 2 WBC 0-5 {/hpf} (Normal) Range: 0 - 5 :17 Prostate-Specific Ag, Serum Comments: PATIENT WAS FASTINGPERFORMED BY: Action6370 [facility]illaActionsCritical [facility] [id number] Prostate Specific 0.5 ng/mL (Normal) Range: 0.0-4.0 Ag, Serum Comments: [employer] ECLIA methodology. .According to the [place] [employer], Serum PSA shoulddecrease and remain at undetectable levels after radicalprostatectomy. The AUA defines biochemical recurrence as an initialPSA value 0.2 ng/mL or greater followed by a subsequent confirmatoryPSA value 0.2 ng/mL or greater.Values obtained with d ifferent assay methods or kits cannot be usedinterchangeably. Results cannot be interpreted as absolute evidenceof the presence or absence of malignant disease. TSH 2.900 {uIU/mL} Comments: PATIENT WAS FASTINGPERFORMED BY: [employer] Iejjyf2357 [facility] [id number] :17 (Normal) Range: 0.450-4.500 :17 Urinalysis, Complete Comments: PATIENT WAS FASTINGPERFORMED BY: [employer] Quowjs0415 [facility] [id number] Microscopic Examination See below: (Normal) Comments: Microscopic was indicated and was performed. Microscopic Examination MICRON (Normal) Comments: Microscopic follows if indicated. Nitrite, Urine Negative (Normal) Urobilinogen,Semi-Qn 0.2 mg/dL (Normal) Range: 0.0-1.9 Bilirubin Negative (Normal) Occult Blood Negative (Normal) Ketones Negative (Normal) Glucose Negative (Normal) Protein Negative (Normal) WBC Esterase Negative (Normal) Appearance Clear (Normal) Urine-Color Yellow (Normal) pH 7.5 (Normal) Range: 5.0-7.5 Specific [place] 1.012 (Normal) Range: 1.005-1.030 6-Ulg-437909:03 HgA1C , Office (86804) HgA1C , Office 6.0 % (Normal) Range: 4.6 - 7.1 :44 CRE GFRAA 96 mL/min (Normal) GFR 79 mL/min (Normal) CREAT 1.0 mg/dL (Normal) Range: 0.8-1.3 5-Cwr-660724:45 URINE EMMA CULTURE-CHAVEZ COL Comments: PATIENT WAS FASTINGPERFORMED BY: Tellus TechnologyJennifer Ville [id number] BY: [employer] [facility] [id number] COUNT (14220) Result 1 NG36 (Normal) Comments: No growth in 36 - 48 hours. Urine Culture,Comprehensive Final report (Normal) 6-Pun-387567:45 EMMA CULTURE-BLOOD (20845) Comments: PATIENT WAS FASTINGPERFORMED BY: [employer] [id number] BY: Tellus TechnologyCHRISTUS St. Vincent Physicians Medical CenterQftyme5535 [facility] [id number] Result 1 NGFD (Normal) Comments: No aerobic or anaerobic growth in five days. Blood Culture, Routine Final report (Normal) 9-Xbq-676827:45 C-Reactive Protein (95105) Comments: PATIENT WAS FASTINGPERFORMED BY: [employer] [id number] BY: Tellus TechnologyAtlantic Rehabilitation InstituteWpebpu8446 [facility] [id number] C-Reactive Protein, Quant 1.3 mg/L (Normal) Range: 0.0-4.9 6-Qjg-117062:45 Sed Rate Erythrocyte Comments: PATIENT WAS FASTINGPERFORMED BY: [address] [id number] BY: [place] 7456970 [facility] [id number] (36384) Sedimentation Rate-Westergren 6 mm/h (Normal) Range: 0-30 1-Lnn-063487:45 ANCA-P (ANTI NEUTROPHIL Comments: PATIENT WAS FASTINGPERFORMED BY: [address] [id number] BY: [place] 7456970 [facility] [id number] Information: [id number] CYTOPLASMIC ANTIBODY) Antimyeloperoxidase (MPO) Abs <9.0 U/mL (Normal) Range: 0.0-9.0 7-Cbr-273349:45 ANCA-C (ANTI NEUTROPHIL Comments: PATIENT WAS FASTINGPERFORMED BY: [address] [id number] BY: [place] 7456970 [facility] [id number] CYTOPLASMIC ANTIBODY) Antiproteinase 3 (NH-3) Abs <3.5 U/mL (Normal) Range: 0.0-3.5 04-Vdb-696181:05 CBC, Platelets & Auto Comments: PATIENT NOT FASTINGPERFORMED BY: [address] [id number] Information: [id number] Diff (25715) Immature Grans (Abs) 0.0 {x10E3/uL} (Normal) Range: 0.0-0.1 Immature Granulocytes 0 % (Normal) Range: 0-2 Baso (Absolute) 0.1 {x10E3/uL} (Normal) Range: 0.0-0.2 Eos (Absolute) 0.2 {x10E3/uL} (Normal) Range: 0.0-0.4 Monocytes(Absolute) 0.4 {x10E3/uL} (Normal) Range: 0.1-0.9 Lymphs (Absolute) 1.9 {x10E3/uL} (Normal) Range: 0.7-3.1 Neutrophils (Absolute) 2.2 {x10E3/uL} (Normal) Range: 1.4-7.0 Basos 1 % (Normal) Range: 0-3 Eos 4 % (Normal) Range: 0-5 Monocytes 9 % (Normal) Range: 4-12 Lymphs 39 % (Normal) Range: 14-46 Neutrophils 47 % (Normal) Range: 40-74 Platelets 203 {x10E3/uL} (Normal) Range: 150-379 RDW 13.6 % (Normal) Range: 12.3-15.4 MCHC 33.8 g/dL (Normal) Range: 31.5-35.7 MCH 29.1 pg (Normal) Range: 26.6-33.0 MCV 86 fL (Normal) Range: 79-97 Hematocrit 44.7 % (Normal) Range: 37.5-51.0 Hemoglobin 15.1 g/dL (Normal) Range: 12.6-17.7 RBC 5.19 {x10E6/uL} (Normal) Range: 4.14-5.80 WBC 4.8 {x10E3/uL} (Normal) Range: 3.4-10.8 97-Ypx-766036:05 Metabolic Panel, Comprehensive Comments: PATIENT NOT FASTINGPERFORMED BY: LabCoAtlantic Rehabilitation InstitutePlcfao8828 [facility] [id number] (66701) ALT (SGPT) 23 [iU]/L (Normal) Range: 0-44 AST (SGOT) 19 [iU]/L (Normal) Range: 0-40 Alkaline Phosphatase, S 46 [iU]/L (Normal) Range: 39-117 Bilirubin, Total 0.7 mg/dL (Normal) Range: 0.0-1.2 A/G Ratio 2.1 (Normal) Range: 1.1-2.5 Globulin, Total 2.2 g/dL (Normal) Range: 1.5-4.5 Albumin, Serum 4.7 g/dL (Normal) Range: 3.5-4.8 Protein, Total, Serum 6.9 g/dL (Normal) Range: 6.0-8.5 Calcium, Serum 9.7 mg/dL (Normal) Range: 8.6-10.2 Carbon Dioxide, Total 23 mmol/L (Normal) Range: 18-29 Chloride, Serum 100 mmol/L (Normal) Range: 97-108 Potassium, Serum 4.7 mmol/L (Normal) Range: 3.5-5.2 Sodium, Serum 139 mmol/L (Normal) Range: 134-144 BUN/Creatinine Ratio 11 (Normal) Range: 10-22 eGFR If Africn Am 81 mL/min/1.73 (Normal) eGFR If NonAfricn Am 70 mL/min/1.73 (Normal) Creatinine, Serum 1.07 mg/dL (Normal) Range: 0.76-1.27 BUN 12 mg/dL (Normal) Range: 8-27 Glucose, Serum 114 mg/dL (Abnormal) Range: 65-99 88-Jav-875610:05 Lipase (09662) Comments: PATIENT NOT FASTINGPERFORMED BY: Tellus TechnologyCHRISTUS St. Vincent Physicians Medical CenterTclzwj3557 [place]illaBeam.[facility] [id number] Lipase, Serum 21 U/L (Normal) Range: 0-59 95-Tay-937989:05 Amylase (35620) Comments: PATIENT NOT FASTINGPERFORMED BY: Tellus TechnologyAtlantic Rehabilitation InstituteCjhxqg0831 [place] JAYSFirstHealth Moore Regional Hospital [id number] Amylase, Serum 56 U/L (Normal) Range: 31-124 62-Kdr-16657:07 JEANNETTE 18.94 ug/dL (Normal) Comments: BASELINE OR POST MEDICATION STIMULATION?: 30 Min Post MED StimulatiTime Medication Given: 0837 Range: 3.09-22.40 Comments: Adult (AM) 4.30 - 22.40 ug/dLAdult (PM) 3.09 - 16.66 ug/dL 0-Nvy-948621:48 Aldolase 2.6 U/L (Normal) Comments: PATIENT WAS FASTINGPERFORMED BY: [employer] [id number] BY: Tell[employer] TechnologyAtlantic Rehabilitation InstitutePzubii3775 [facility] InstituteLumificFirstHealth [facility] [id number] Range: 1.2-7.6 2-Iuz-456429:48 ANCA Panel Comments: PATIENT WAS FASTINGPERFORMED BY: [employer] [id number] BY: Tellus TechnologyAtlantic Rehabilitation InstituteXigjrp3316 [facility] [id number] Atypical pANCA <1:20 {titer} Comments: The atypical pANCA pattern has been observed in a significantpercentage of patients with ulcerative colitis, primary sclerosingcholangitis and autoimmune hepatitis. (Normal) Perinuclear (P-ANCA) <1:20 {titer} Comments: The presence of positive fluorescence exhibiting P-ANCA or C-ANCApatterns alone is not specific for the diagnosis of Aiden'sGranulomatosis (WG) or microscopic polyangiitis. Decisions about treatment sh (Normal) ould not be based solely on ANCA IFA results. TheInternational ANCA Group Consensus recommends follow up testing ofpositive sera with both NH-3 and MPO-ANCA enzyme immunoassays. Asmany as 5% serum samp les are positive only by EIA.Ref. AM J Clin Pathol 1999;111:507-513. Cytoplasmic (C-ANCA) <1:20 {titer} (Normal) Antiproteinase 3 (NH-3) Abs <3.5 U/mL (Normal) Range: 0.0-3.5 Antimyeloperoxidase (MPO) Abs <9.0 U/mL (Normal) Range: 0.0-9.0 0-Ugk-716049:48 Antinuclear Antibodies Comments: PATIENT WAS FASTINGPERFORMED BY: Wrnch [address] [id number] BY: [employer]70 [facility] [id number] Direct ASHOK Direct Negative (Normal) 5-Qfx-287465: Creatine 78 U/L (Normal) Comments: PATIENT WAS FASTINGPERFORMED BY: Jump[employer] [id number] BY: Action6370 [facility] [id number] Kinase,Total,Serum Range: 24-204 6-Zir-829580:48 FSH and LH Comments: PATIENT WAS FASTINGPERFORMED BY: Wrnch [address] [id number] BY: [employer]70 [facility] [id number] FSH 8.8 m[iU]/mL (Normal) Range: 1.5-12.4 LH 4.5 m[iU]/mL (Normal) Range: 1.7-8.6 :48 Immunofixation, Serum Comments: PATIENT WAS FASTINGPERFORMED BY: [employer] [id number] BY: [employer] Qqnhit3478 [facility] [id number] Immunoglobulin M, Qn, 99 mg/dL (Normal) Range: 40-230 Serum Immunoglobulin A, Qn, 142 mg/dL (Normal) Range: 91-414 Serum Immunoglobulin G, Qn, 918 mg/dL (Normal) Range: 700-1600 Serum Immunofixation Result, IFENOR (Normal) Comments: An apparent normal immunofixation pattern. Serum Methylmalonic Acid, Serum 140 nmol/L Comments: PATIENT WAS FASTINGPERFORMED BY: [employer] [id number] BY: [employer] [facility] [id number] 1:48 (Normal) Range: 73-376 Comments: The reference range for methylmalonic acid has been set at +3sd abovethe mean for healthy blood bank donors. In the clinical assessment ofpatients with megaloblastic anemias a cutoff of +3sd provides gr eaterspecificity in the diagnosis of the vitamin deficiency states,despite the sacrifice of some sensitivity. :48 [facility] 578148 Comments: PATIENT WAS FASTINGPERFORMED BY: [employer] [id number] BY: Tell[employer] TechnologyAtlantic Rehabilitation InstituteVkoqah3264 [facility] [id number] HIV 1/O/2 Abs, Qual Non Reactive (Normal) HIV 1/O/2 Abs-Index <1.00 (Normal) Comments: Index Value: Specimen reactivity relative to the negative cutoff. Value Sedimentation 2 mm/h (Normal) Comments: PATIENT WAS FASTINGPERFORMED BY: [employer] [id number] BY: SensAble Technologieslin6370 [facility] [id number] :48 Rate-Westergren Range: 0-30 2-Jau-667932:48 Testosterone, Free, Direct Comments: PATIENT WAS FASTINGPERFORMED BY: [facility]Co[address] [id number] BY: [facility]6370 [facility] [id number] Free Testosterone(Direct) 5.4 pg/mL Range: 6.6-18.1 (Abnormal) 14-Aug-2013 Vitamin B12 349 pg/mL (Normal) Comments: PATIENT WAS FASTINGPERFORMED BY: LabCo[address] [id number] BY: LabMcl[facility] Hospital6370 [facility] [id number] 11:48 Range: 211-946 14-Aug-20138:59 HgA1C , Office (60721) HgA1C , Office 5.8 % (Normal) Range: 4.6 - 7.1 14-Aug-20138:59 Blood Glucose , Office (58518) Blood Glucose , Office 88 (Normal) 08-May-20139:26 RIBS UNIL 2V NO CXR Radiology Report See Note Comments: PROCEDURE: X-RAY - UNILATERAL RIBS ( RIGHT ) REASON FOR EXAM: Male, 68 years old. Eight month history of rightlowerposterior rib pain. TECHNIQUE: Four views of the ribs. COMPARISON: None. (Normal) FINDINGS:Normal visualized ribs without a demonstrated fracture. The visualizedlung is clear and expanded. IMPRESSION:Normal x-ray exami nation of the ribs. Signed:Yordan Lamb M.D.May 08, 2013 at 1:49:35 PM [id number] Signed GP/GP If you are the referring physician and would like to consult with theradiologist who provided this interpretation, please contact Sajan Dozier at [phone]. If this radiologist is unavailable, youwill be directed to another radiologist to assist. If you are a patient w ith a question regarding this report, pleasecontactyour referring physician directly. Professional Interpretation Provided By: [employer], Phone , These documents contain legally protected and confidential healthinformation intended only for the use of the individual or entity namedabove. If you are not the intended recipient, you are hereby notifiedthatany disclosure, c opying, distribution, or other use of these documents isstrictly prohibited. If you have received this information in error,pleasenotify the sender immediately and arrange for the return or destructiono fthese documents. Dictated on 05/08/13 1349 by Zainab MONTGOMERY,Teteranscribed on 05/08/13 1351 by ITS IMPORTSign by Zainab MONTGOMERY,Yordan on 05/08/13 1352 Sign by: Yordan Lamb MD 75-Lno-149566:23 METABOLIC PANEL, Comments: PATIENT WAS FASTINGPERFORMED BY: LabMcl[facility] Hospital6370 [facility] [id number] Information: [id number] COMPREHENSIVE (75662) ALT (SGPT) 19 [iU]/L (Normal) Range: 0-44 AST (SGOT) 18 [iU]/L (Normal) Range: 0-40 Alkaline Phosphatase, S 47 [iU]/L (Normal) Range: 44-103 Bilirubin, Total 0.9 mg/dL (Normal) Range: 0.0-1.2 A/G Ratio 1.8 (Normal) Range: 1.1-2.5 Globulin, Total 2.5 g/dL (Normal) Range: 1.5-4.5 Albumin, Serum 4.5 g/dL (Normal) Range: 3.6-4.8 Protein, Total, Serum 7.0 g/dL (Normal) Range: 6.0-8.5 Calcium, Serum 9.5 mg/dL (Normal) Range: 8.6-10.2 Carbon Dioxide, Total 22 mmol/L (Normal) Range: 19-28 Chloride, Serum 102 mmol/L (Normal) Range: 97-108 Potassium, Serum 4.5 mmol/L (Normal) Range: 3.5-5.2 Sodium, Serum 138 mmol/L (Normal) Range: 134-144 BUN/Creatinine Ratio 14 (Normal) Range: 10-22 eGFR If Africn Am 94 mL/min/1.73 (Normal) eGFR If NonAfricn Am 81 mL/min/1.73 (Normal) Creatinine, Serum 0.95 mg/dL (Normal) Range: 0.76-1.27 BUN 13 mg/dL (Normal) Range: 8-27 Glucose, Serum 98 mg/dL (Normal) Range: 65-99 06-Txq-195609:23 LIPID PANEL (82879) Comments: PATIENT WAS FASTINGPERFORMED BY: [employer]70 [facility] [id number] LDL/HDL Ratio 1.8 {ratio_units} (Normal) Range: 0.0-3.6 LDL Cholesterol Calc 108 mg/dL (Abnormal) Range: 0-99 VLDL Cholesterol Alexandro 32 mg/dL (Normal) Range: 5-40 HDL Cholesterol 61 mg/dL (Normal) Comments: According to ATP-III Guidelines, HDL-C >59 mg/dL is considered anegative risk factor for CHD. Triglycerides 162 mg/dL (Abnormal) Range: 0-149 Cholesterol, Total 201 mg/dL (Abnormal) Range: 100-199 67-Ymg-097501:36 Lipid Panel (20880) Comments: PATIENT NOT FASTINGPERFORMED BY: [employer]70 [facility] [id number] LDL/HDL Ratio 1.6 {ratio_units} (Normal) Range: 0.0-3.6 LDL Cholesterol Calc 105 mg/dL (Abnormal) Range: 0-99 HDL Cholesterol 65 mg/dL (Normal) Comments: According to ATP-III Guidelines, HDL-C >59 mg/dL is considered anegative risk factor for CHD. VLDL Cholesterol Alexandro 36 mg/dL (Normal) Range: 5-40 Cholesterol, Total 206 mg/dL (Abnormal) Range: 100-199 Triglycerides 179 mg/dL (Abnormal) Range: 0-149 [id number] Lipase (00155) Comments: PATIENT NOT FASTINGPERFORMED BY: [facility] [id number] [facility] [id number] Lipase, Serum 23 U/L (Normal) Range: 0-59 [id number]-[id number] Amylase (39283) Comments: PATIENT NOT FASTINGPERFORMED BY: [facility] [id number] [facility] [id number] Amylase, Serum 54 U/L (Normal) Range: 31-124 [id number]-[id number] Sed Rate Erythrocyte (57740) Comments: PATIENT NOT FASTINGPERFORMED BY: [facility] [id number] [facility] [id number] Sedimentation Rate-Westergren 2 mm/h (Normal) Range: 0-30 [id number]-Xzq-[id number]:36 CBC, Platelets & Auto Comments: PATIENT NOT FASTINGPERFORMED BY: LabCoAtlantic Rehabilitation InstituteRzzdwt1614 [facility] [id number] Information: [id number] Diff (09881) Immature Grans (Abs) 0.0 {x10E3/uL} (Normal) Range: 0.0-0.1 Immature Granulocytes 0 % (Normal) Range: 0-2 Baso (Absolute) 0.0 {x10E3/uL} (Normal) Range: 0.0-0.2 Eos (Absolute) 0.2 {x10E3/uL} (Normal) Range: 0.0-0.4 Monocytes(Absolute) 0.5 {x10E3/uL} (Normal) Range: 0.1-1.0 Lymphs (Absolute) 1.9 {x10E3/uL} (Normal) Range: 0.7-4.5 Neutrophils (Absolute) 1.9 {x10E3/uL} (Normal) Range: 1.8-7.8 Basos 0 % (Normal) Range: 0-3 Eos 5 % (Normal) Range: 0-7 Monocytes 11 % (Normal) Range: 4-13 Lymphs 41 % (Normal) Range: 14-46 Neutrophils 43 % (Normal) Range: 40-74 Platelets 181 {x10E3/uL} (Normal) Range: 140-415 RDW 14.2 % (Normal) Range: 12.3-15.4 MCHC 34.0 g/dL (Normal) Range: 31.5-35.7 MCH 28.4 pg (Normal) Range: 26.6-33.0 MCV 84 fL (Normal) Range: 79-97 Hematocrit 42.0 % (Normal) Range: 37.5-51.0 Hemoglobin 14.3 g/dL (Normal) Range: 12.6-17.7 RBC 5.03 {x10E6/uL} (Normal) Range: 4.14-5.80 WBC 4.5 {x10E3/uL} (Normal) Range: 4.0-10.5 73-Nfs-090827:36 Metabolic Panel, Comprehensive Comments: PATIENT NOT FASTINGPERFORMED BY: [facility]CoAtl[facility] Rehabilitation InstituteJyjdvs4845 [facility] [id number] ([id number]) ALT (SGPT) 20 [iU]/L (Normal) Range: 0-44 AST (SGOT) 18 [iU]/L (Normal) Range: 0-40 Alkaline Phosphatase, S 42 [iU]/L (Normal) Range: 25-160 Bilirubin, Total 0.9 mg/dL (Normal) Range: 0.0-1.2 A/G Ratio 2.0 (Normal) Range: 1.1-2.5 Globulin, Total 2.3 g/dL (Normal) Range: 1.5-4.5 Albumin, Serum 4.7 g/dL (Normal) Range: 3.6-4.8 Protein, Total, Serum 7.0 g/dL (Normal) Range: 6.0-8.5 Calcium, Serum 9.6 mg/dL (Normal) Range: 8.6-10.2 Carbon Dioxide, Total 24 mmol/L (Normal) Range: 20-32 Chloride, Serum 102 mmol/L (Normal) Range: 97-108 Potassium, Serum 4.5 mmol/L (Normal) Range: 3.5-5.2 Sodium, Serum 140 mmol/L (Normal) Range: 134-144 BUN/Creatinine Ratio 14 (Normal) Range: 10-22 eGFR If Africn Am 88 mL/min/1.73 (Normal) eGFR If NonAfricn Am 76 mL/min/1.73 (Normal) Creatinine, Serum 1.00 mg/dL (Normal) Range: 0.76-1.27 BUN 14 mg/dL (Normal) Range: 8-27 Glucose, Serum 119 mg/dL (Abnormal) Range: 65-99 :37 Urinalysis, Office (79030) UA - BILIRUBIN Negative (Normal) UA - BLOOD Negative (Normal) UA - GLUCOSE Negative (Normal) UA - KETONES Negative mg/dL (Normal) UA - LEUKOCYTE ESTERASE Negative (Normal) UA - NITRITE Negative (Normal) UA - PH 6.0 (Normal) UA - PROTEIN Negative mg/dL (Normal) UA - SPECIFIC GRAVITY 1.020 (Normal) URINE UROBILINGN CHAVEZ TIMED Normal mg/dL (Normal) :13 HgA1C , Office (88857) HgA1C , Office 5.9 % (Normal) Range: 4.6 - 7.1 :13 Blood Glucose , Office (39379) Blood Glucose , Office 128 (Normal) :36 METABOLIC PANEL, Comments: PATIENT WAS FASTINGPERFORMED BY: Fernando LipoSciShiftboard Online Scheduling Lav6680 [facility] [id number] BY: TANISHA [facility] Wwldlg8171 [facility] [id number] COMPREHENSIVE (63693) ALT (SGPT) 17 [iU]/L (Normal) Range: 0-44 Comments: Please note reference interval change AST (SGOT) 17 [iU]/L (Normal) Range: 0-40 Alkaline Phosphatase, S 43 [iU]/L (Normal) Range: 25-160 Bilirubin, Total 0.7 mg/dL (Normal) Range: 0.0-1.2 A/G Ratio 2.2 (Normal) Range: 1.1-2.5 Globulin, Total 2.0 g/dL (Normal) Range: 1.5-4.5 Albumin, Serum 4.3 g/dL (Normal) Range: 3.6-4.8 Calcium, Serum 9.0 mg/dL (Normal) Range: 8.6-10.2 Protein, Total, Serum 6.3 g/dL (Normal) Range: 6.0-8.5 Carbon Dioxide, Total 23 mmol/L (Normal) Range: 20-32 Chloride, Serum 103 mmol/L (Normal) Range: 97-108 Potassium, Serum 4.3 mmol/L (Normal) Range: 3.5-5.2 Sodium, Serum 138 mmol/L (Normal) Range: 134-144 BUN/Creatinine Ratio 10 (Normal) Range: 10-22 eGFR If Africn Am 89 mL/min/1.73 (Normal) eGFR If NonAfricn Am 77 mL/min/1.73 (Normal) Creatinine, Serum 1.00 mg/dL (Normal) Range: 0.76-1.27 BUN 10 mg/dL (Normal) Range: 8-27 Glucose, Serum 101 mg/dL (Abnormal) Range: 65-99 57-Gtm-370547:36 LIPOPROTEIN, BLD, BY NMR Comments: PATIENT WAS FASTINGPERFORMED BY: Fernando [employer] Jeff [facility] [id number] BY: TANISHA [facility]6370 [facility] [id number] Information: [id number] (85993) LP-IR Score 56 (Abnormal) Comments: The LP-IR Score combines information from lipoproteinparticle concentration and size to give improvedassessment of insulin resistance and diabetes risk.Small LDL-P, LDL Particle Size, HDL-Pa rticle, andL P-IR Score have been validated by [employer].inbut not cleared by US FDA; the clinical utilityof these test results has not been fully established.INSULIN RESISTANCE MARKER <--Insulin Sensitive I nsulin Resistant--> Percentile in Reference PopulationInsulin Resistance ScoreLP-IR Score Low 25th 50th 75th High <27 27 45 63 >63 LDL Size 21.1 nm (Normal) Comments: INTERPRETATIVE INFORMATION PARTICLE CONCENTRATION AND SIZE <--Lower CVD Risk High er CVD Risk--> LDL AND HDL PARTICLES Percentile in Reference Population HDL-P (total) High 75th 50th 25th Low >34.9 34.9 30.5 26.7 <26.7 . Small LDL-P Low 25th 50th 75th High <117 117 527 839 >839 . LDL Size <-Large (Pattern A)- > <-Small (Pattern B)-> 23.0 20.6 20.5 19.0 HDL-P (Total) 35.5 umol/L (Normal) Small LDL-P 548 nmol/L (Abnormal) Cholesterol, Total 211 mg/dL (Abnormal) HDL-C 57 mg/dL (Normal) Triglycerides 133 mg/dL (Normal) LDL-C 127 mg/dL (Abnormal) Comments: . Optimal < 100 Above optimal 100 - 129 Borderline 1 30 - 159 High 160 - 189 Very high > 189 . LDL-P 1481 nmol/L (Abnormal) Comments: Low < 1000 Moderate 1000 - 1299 Borderline-High 1300 - 1599 High 1600 - 2000 Very High > 2000 12-Xlb-781645:45 HgA1C , Office (40439) HgA1C , Office 6.0 % (Normal) Range: 4.6 - 7.1 37-Bbo-930538:45 Blood Glucose , Office (49099) Blood Glucose , Office 116 (Normal) :46 LIPID VLDL 24 mg/dL (Normal) Range: 5-40 LDL 121 mg/dL (Normal) Range: 0-130 HDL 55 mg/dL (Normal) Comments: Reference Range HDL <40 mg/dL Low HDL Cholesterol HDL >or= 60 mg/dL High HDL Cholesterol TRIG 119 mg/dL (Normal) Comments: Serum Triglycerides Reference Interval Normal <150 mg/dL Borderline high 150 - 199 mg/dL High 200 - 499 mg/dL Very High > or = 500 mg/dL CHOL 200 mg/dL (Normal) Comments: <200 mg/dL Desirable 200-240 mg/dL Borderline >240 mg/dL High Risk :01 FSH 8.3 m[iU]/mL (Normal) Range: 1.5-12.4 Comments: Performed at: [facility] [employer] [id number] Director: Patricia Moya MD, Phone: [phone] at: [address] [id number] Director: Grupo Carrera MD, Phone: [phone] : LH 3.5 m[iU]/mL (Normal) Range: 1.7-8.6 : TESTF tTESPF 2.74 % (Normal) Range: 1.50-4.20 tTESF 11.92 ng/dL (Normal) Range: 5.00-21.00 tTEST 435 ng/dL (Normal) Range: 348-1197 :59 FSH 6.9 m[iU]/mL (Normal) Range: 1.5-12.4 :59 LH 3.2 m[iU]/mL (Normal) Range: 1.7-8.6 :59 PROL 5.0 ng/mL (Normal) Range: 4.0-15.2 :59 SOMA 108 ng/mL (Normal) Range: 69-200 :59 TESTOF 5.9 pg/mL (Abnormal) Range: 6.6-18.1 Comments: Performed at: [address] [id number] Director: Patricia Moya MD, Phone: [phone] at: [address] [id number] Director: Grupo Carrera MD, Phone: [phone] BRAIN W/WO CONTRAST Radiology Report See Note (Normal) Comments: PROCEDURE: MRI PITUITARY GLAND WITHOUT AND WITH CONTRAST REASON FOR EXAM: Male, 66 years old. Small pituitary abnormality seenonbrain MRI 01/05/2012. TECHNIQUE: Study consists of precontrast brai n axial T1-weightedsequencewith pre-and post contrast sagittal and coronal sellar T1-weightedsequences prior to and following intravenous administration of 20-MLMagnevist. COMPARISON: Correlation is m ghassan to MRI brain with and without contrastperformed 01/05/2012. FINDINGS:Study was tailored to assess the pituitary gland, to supplement therecentunenhanced and enhanced brain MRI 01/05/2012 (please see separate report). The sella appears partially empty, with otherwise normal- appearingenhancing pituitary glandular tissue along the sellar floor, except fortiny foci of relative non-enhancement in the l eft superolateral gland, inthe location of the small lesion noted on the prior brain MRI.Configuration appears linear on the sagittal sequence, unusual for asmallRathke's cleft cyst or tiny pituitary mi croadenoma (sagittal contrast M5pqywuu 7 image 6, coronal contrast T1 series 6 image 7-8). In theabsenceof any endocrine abnormality, this finding is of doubtful clinicalsignificance. The pituitary inf undibulum inserts slightly to the right of midline, withotherwise normal appearance. Normal suprasellar cistern, optic chiasmandhypothalamic region. No demonstrated abnormality of the bilateralcaverno us sinuses or visualized skull base structures. Please refer to previously issued brain MRI report for additional detailsregarding extrasellar intracranial structures. IMPRESSION:Partially empty sella, with tiny nonenhancing foci in the left lateralgland, with somewhat linear configuration which mitigates against smallRathke's cleft cyst or pituitary microadenoma. In the absence of anyendocrine abnor malities referable to the pituitary-hypothalamic axis,thisfinding is of doubtful clinical significance. Consider continued MRIsurveillance as clinically warranted. To consult with a radiologist regardi ng this report, please call our [id number] line @ Dictated on 01/18/12 1241 by BRITANY YODER MD RTranscribed on 01/18/121727 by ITS IMPORTSign by BRITANY YODER MD on 01/18/121728 Sign by: BRITANY YODER MD [facility] [facility] [place] . (Normal) Comments: TEST RESULT LIMITSANCA PanelAntimyeloperoxidase (MPO) Abs < 9.0 U/mL 0.0 - 9.0Antiproteinase 3 (NH-#) Abs < 3.5 U/mL 0.0 - 3.5Cytoplasmic (C-ANC :21 A) < 1:20 titer Neg:<1:20Perinuclear (P-ANCA) < 1:20 titer Neg:<1:20The presence of positive fluorescence exhibiting P-ANCA orC-ANCA patterns alone is not s pecific for the diagnosis ofWegener's Granulomatosis (WG) or microscopic polyangiitis. Decisions about treatment should not be used solely on ANCAIFA results. The International ANCA Group Consensusreco mmends follow up testing of positive sera with both NH-3and MPO-ANCA enzyme immunoassays. As many as 5% serumsamples are positive only by EIA.Ref. AM J Clin Pathol 1999;111:507-513.Atypical pANCA <1:20 titer Neg:<1:20The atypical pANCA pattern has been observed in asignificant percentage of patients with ulcerative colitis,primary sclerosing cholangitis and autoimmune hep atitis. TESTING PERFORMED AT [facility]. ORIGINAL REPORT ON FILE IN LAB CONTAINS ADDITIONAL TEST SITE INFORMATION. : RPR SeeNote (Normal) Comments: RPR ADDED 12/31/11 13 Comments: Result: NONREACTIVE METHYLM 262602 200 nmol/L (Normal) Comments: ALDOLASE ADDED 12/31/11 6:13 Range: 73-376 Comments: The reference range for methylmalonic acid has been set at+3sd above the mean for healthy blood bank donors. In theclinical assessment of patients with megaloblastic anemiasa cutoff of +3sd provides gre ater specificity in thediagnosis of the vitamin deficiency states, despite thesacrifice of some sensitivity. ALDOLASE 2030 4.1 U/L (Normal) Comments: ALDOLASE ADDED 12/31/11 6:13 Range: 1.2-7.6 Comments: Performed at: [address] [id number] Director: Grupo Carrera MD, Phone: [phone] at: CB - [facility] Yb[address]eqj[address] [place] [id number] Director: Patricia Moya MD, Phone: [phone] 34-Izm-820791:13 HVY METAL 91060 Comments: ALDOLASE ADDED 12/31/11 MERCURY 89128 SeeNote ug/L (Normal) Range: 0.0-14.9 Comments: Result: None Detected Environmental Exposure: <15.0 Occupational Exposure: DANIEL - Inorganic Mercury: 15.0 . Detection Limit = 1.0 ARSENIC 7245 5 ug/L (Normal) Range: 2-23 Comments: Detection Limit = 1 LEAD, BLOOD 6 ug/dL (Normal) Range: 0-19 Comments: The Centers for Disease Control and Prevention states blood lead levels less than 10 ug/dL in children have been associated with numerous adverse health effects. [facility] Guidelines: Blood lead levels in the range 5-9 ug/dL have been associated with adverse health effects in children aged 6 years and younger. . Environmental Exposure: WHO <20 Occupational Exposure: OSHA Lead Std 40 DANIEL 30 . Detection Limit = 1 60-Knm-08271:00 BRAIN W/WO CONTRAST Radiology Report See Note (Normal) Comments: PROCEDURE: MRI BRAIN WITH AND WITHOUT CONTRAST REASON FOR EXAM: Male, 66 years old. 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 Additional history oflightheadedness, nausea, difficulty swallowing, neck and eye pain.Attention left maxillary sinus. TECHNIQUE: Standardized multiplanar fat a nd water weighted pulsesequences were obtained. 10 ml of Gadavist contrast material wasadministered intravenously for the contrast portion of the examination. COMPARISON: Limited MRI brain without co ntrast 10/09/2010. Whole bodyradionuclide bone scintigraphy 01/04/2012. FINDINGS:Normal size of the ventricles and extra-axial spaces for the patient'maryan.No significant abnormality of the white matter tracts of thesupratentorial brain. There is no evidence for recent intracranialischemia or other cause of cytotoxic edema on diffusion weighted imaging(DWI). Normal bilateral basal ganglia. Normal th marv. There is no extra-axialfluid accumulation. Normal flow voids within the major intracranial circulation suggestingpatency by spin echo criteria. Normal venous enhancement. Nodemonstratedenhanci ng intracranial abnormality. The sella appears non-expanded but partially empty, with normal appearingglandular tissue along the sellar floor. Potential tiny nonenhancinglesion in the left lateral glan d, measuring 2 mm in diameter, which couldrepresent a tiny microadenoma or small Rathke's cleft cyst (coronalcontrast T1 series 9 image 22). This could be further evaluated withdedicated MRI of the pit uitary gland, if clinically warranted. Normaltectal plate and pineal gland. Normal midbrain, abril and medulla. Normal cerebellum. Normal basalcisterns. Normal bilateral temporal bones. Normal visuali zed bilateral internalauditory canal structures, given routine brain imaging. No demonstrated orbital abnormality, with bilateral ocular lens implants.Mild mucosal thickening involving the bilateral eth moid sinuses, withotherwise normal visualized paranasal sinuses, with the left maxillarysinus appearing to be normally aerated. Normal appearance of thecalvariumand visualized osseous skull base structu res. Normal visualizedextracranial soft tissue structures. No significant abnormality of thevisualized upper cervical spine. IMPRESSION:Tiny, nonenhancing lesion in the left lateral pituitary gland,pot entiallyrepresenting a small microadenoma or Rathke's cleft cyst. Considerfurtherevaluation with dedicated MRI of the pituitary gland, if clinicallyindicated. Mild chronic bilateral ethmoid sinusitis. Otherwise normal study, with no apparent interval change when compared tolimited unenhanced brain MRI dated 10/09/2010. To consult with a radiologist regarding this report, please call our [id number] l anamaria @ Dictated on 01/05/12 0736 by BRITANY YODER MD RTranscribed on 01/05/12 1135 by ITS IMPORTSign by BRITANY YODER MD on 01/05/12 1136 Sign by: BRITANY YODER MD 73-Nve-37431:00 MRA HEAD WITHOUT CONTRAST Radiology Report See Note (Normal) Comments: PROCEDURE: MRA OF THE HEAD WITHOUT CONTRAST REASON FOR EXAM: Male, 66 years old. Headache left amish area for 6weeks with family history intracranial aneurysm. Additional history ofchronic osteo myelitis left maxillary sinus. TECHNIQUE: 3-D dpcz-sb-oqkoja (TOF) imaging was performed in an 1.5Tesla. The study was performed unenhanced. COMPARISON: There are no previous intracranial vascular mariella ging studiesforcomparison. Correlation is made to MRI brain performed in conjunctionwiththis study (see separate report). FINDINGS:Normal bilateral petrous carotid arteries, with tortuous pre-petrousse gment on the left. Normal right cavernous carotid artery with a normalsupraclinoid bifurcation. Normal left cavernous carotid artery with anormal supraclinoid bifurcation. Normal right A1 segments of the anterior cerebral artery. Normal left O8zxwlvqmn of the anterior cerebral artery. Normal intact anteriorcommunicating artery (ACOM). Normal visualized bilateral A2 segments ofthe anterior cerebra l arteries. Normal right M1 and M2 segments of the middle cerebral arteries, with anormal M1 bifurcation. Normal left M1 and M2 segments of the middlecerebral arteries, with a normal M1 bifurcation. T here is non-visualization of the right posterior communicating artery(PCOM). There is non-visualization of the left posterior communicatingartery (PCOM). Normal visualized bilateral distal vertebral ar teries. Normal basilarartery with a normal basilar bifurcation. The visualized bilateralsuperior cerebellar (SCA) arteries are normal. Normal bilateral P1, P2 and visualized P3 segments of the novelty dipper iorcerebral arteries. There is no demonstrated aneurysm of the [place], within thetechnical limitations of this modality. No demonstrated hemodynamicallysignificant stenosis or major branch oc clusion. IMPRESSION:Incomplete hamilton of [place], representing a common anatomical variant.Tortuosity/vascular loop involving the distal cervical segment of theleftinternal carotid artery. No demonstrat ed intracranial aneurysm,hemodynamically significant stenosis or major branch occlusion. To consult with a radiologist regarding this report, please call our [id number] line @ Dictate d on 01/05/12 0729 by BRITANY YODER MD RTranscribed on 01/05/121137 by ITS IMPORTSign by BRITANY YODER MD on 01/05/12 113 Sign by: PARESH MONTGOMERYJAQUANBRITANY R 80-Bzr-61591:56 BONE SCAN WHOLE BODY Radiology Report See Note (Normal) Comments: CLINICAL:66-year-old male with history of diffuse myalgia and bilateral shoulderpain. WHOLE BODY Tc MDP RADIONUCLIDE BONE SCINTIGRAPHY COMPARISON:None available FINDINGS:Following the intravenous admini stration of 24.3 mCi of Tc MDP, wholebodybone images reveal:1. Increased radiopharmaceutical concentration is visualized in theacromioclavicular and sternoclavicular compartments of the right shoulder,t he mid cervical spine posteriorly on the right, the bilateral kneearticulations. 2. The remaining skeletal structures are scintigraphically unremarkablewith normal-appearing renal images and urinary radha dder activityidentified.Prominent tracer concentration is defined at the sternal- manubrialsynchondrosis. IMPRESSION:1. Enhanced uptake identified in the cervical spine, right shoulder andbilateral knee articulations is compatible with degenerative arthropathy. 2. No other scintigraphic abnormalities are demonstrated. To consult with a radiologist regarding this report, please call our [id number] line @ Dictated on 01/04/12 1036 by Maynor Arroyo DOTranscribed on 01/04/122032 by ITS IMPORTSign by Maynor Arroyo DO on 01/04/122033 Sign by: Maynor Arroyo DO 24-Tkn-364028:28 ASHOK DIR SEMI-QL ASHOK DIRECT 25 AU/mL (Normal) 14-Jbi-782107:11 HGB A1C 6.6 % (Abnormal) Range: 4.2-6.3 60-Nfx-846475:11 T4 FREE DIRECT 0.94 ng/dL (Normal) Range: 0.76-1.46 10-Dmn-650819:11 B12/FOLATES FOLATES 25.40 ng/mL (Abnormal) Range: 3.1-17.5 VITAMIN B12 489 pg/mL (Normal) Range: 254-1320 Comments: There is a low frequency possibility that high titers ofintrinsic blocking antibodies may not be completely inactivated during the reaction pretreatment stepof this testing method. If test results are i n conflictwith the clinical diagnosis, patient should be testedfor the presence of intrinsic factor blocking antibodies. :11 FERRITIN 125 ng/mL (Normal) Range: 26-388 :11 TSH 2.65 {uIU/mL} (Normal) Range: 0.358-3.74 :11 C-REACTIVE PROT < 2.90 mg/L (Normal) Range: 0.0-3.0 Comments: C-Reactive Protein (CRP) provides useful information for thediagnosis, therapy and monitoring of inflammatory processesand associated diseases. For the evaluation of Relative Riskfor Cardiovascular Dise ase, a High Sensitivity CRP (HSCRP)should be ordered. :11 COMP METABOLIC GAP 9 (Normal) Range: 5-15 CO2 29.0 mmol/L (Normal) Range: 21.0-32.0 CL 99 mmol/L (Normal) Range: 98-107 K 4.4 mmol/L (Normal) Range: 3.5-5.1 NA 137 mmol/L (Normal) Range: 136-145 T BILI 0.80 mg/dL (Normal) Range: 0.00-1.00 ALT 41 U/L (Normal) Range: 12-78 ALK P 46 U/L (Abnormal) Range: 50-136 AST 18 U/L (Normal) Range: 15-37 CA 9.0 mg/dL (Normal) Range: 8.5-10.1 A/G 1.4 {RATIO} (Normal) Range: 0.9-2.4 GLOB 3.2 g/dL (Normal) Range: 2.7-4.2 ALB 4.4 g/dL (Normal) Range: 3.4-5.0 T PROT 7.6 g/dL (Normal) Range: 6.4-8.2 BUN/CRE 15.6 {RATIO} (Normal) Range: 10-20 EST GFR - AA 108 mL/min (Normal) EST GFR 89 mL/min (Normal) CREAT,SERUM 0.9 mg/dL (Normal) Range: 0.8-1.3 BUN 14 mg/dL (Normal) Range: 7-18 GLU 106 mg/dL (Normal) Range: 70-110 :11 CBCD ABSOLUTE NEUT 2.9 3/uL (Normal) Range: 2.0-7.7 BASO% 0.7 % (Normal) Range: 0-1 EO% 4.0 % (Normal) Range: 0-5 MONO% 10.9 % (Abnormal) Range: 0-10 LY% 35.2 % (Normal) Range: 19-41 NEUT% 49.2 % (Normal) Range: 47-70 MPV 8.5 fL (Normal) Range: 6.5-12.0 PLT 213 K/mm3 (Normal) Range: 150-450 RDW 13.7 % (Normal) Range: 11.6-14.6 MCHC 34.3 g/dL (Normal) Range: 32-36 MCH 29.3 pg (Normal) Range: 27.0-32.0 MCV 85.4 fL (Normal) Range: 80-94 HCT 45.6 % (Normal) Range: 40-54 HGB 15.7 g/dL (Normal) Range: 14.0-18.0 RBC 5.34 {M/mm3} (Normal) Range: 4.6-6.2 WBC 5.9 K/mm3 (Normal) Range: 4.4-11.0 54-Fwn-228555:42 Urinalysis, Office (99510) UA - BILIRUBIN Negative (Normal) UA - BLOOD Negative (Normal) UA - GLUCOSE Negative (Normal) UA - KETONES Negative mg/dL (Normal) UA - LEUKOCYTE ESTERASE Negative (Normal) UA - NITRITE Negative (Normal) UA - PH 7.0 (Normal) UA - PROTEIN Negative mg/dL (Normal) UA - SPECIFIC GRAVITY 1.015 (Normal) URINE UROBILINGN CHAVEZ TIMED 2 mg/dL (Normal) 75-Ljx-303444:42 HgA1C , Office (10002) HgA1C , Office 5.8 % (Normal) Range: 4.6 - 7.1 14-Iuh-973659:42 Blood Glucose , Office (38092) Blood Glucose , Office 103 (Normal) Plan of Care Name Dates Details Instructions Acute pain of left knee : Follow up in 2 weeks Indication: Acute pain of left knee Current nonsmoker (Renamed from Current non-smoker) : Eprescribed prescriptions (G8553) Indication: Current nonsmoker (Renamed from Current non-smoker) BMI 26.0-26.9,adult : Follow up in 3 months Indication: BMI 26.0-26.9,adult Multilevel degenerative disc disease : Reviewed Lab Indication: Multilevel degenerative disc disease Low testosterone : Reviewed Lab Indication: Low testosterone Current nonsmoker (Renamed from Current non-smoker) : Eprescribed prescriptions (G8553) Indication: Current nonsmoker (Renamed from Current non-smoker) Nodule of right lung : Follow up in 3 months Indication: Nodule of right lung Low testosterone : Follow up if no improvement or if symptoms worsen Indication: Low testosterone Low testosterone : Reviewed Diagnostic Tests Indication: Low testosterone Multilevel degenerative disc disease : Reviewed Diagnostic Tests Indication: Multilevel degenerative disc disease Obstructive sleep apnea, adult : Reviewed Diagnostic Tests Indication: Obstructive sleep apnea, adult Impaired fasting glucose : Reviewed Diagnostic Tests Indication: Impaired fasting glucose Impaired fasting glucose : Eprescribed prescriptions (G8553) Indication: Impaired fasting glucose BMI 26.0-26.9,adult : Follow up in 3 months Indication: BMI 26.0-26.9,adult Impaired fasting glucose : Eprescribed prescriptions (G8553) Indication: Impaired fasting glucose Osteonecrosis, maxilla : Follow up in 3 months Indication: Osteonecrosis, maxilla Nodule of right lung : Eprescribed prescriptions (G8553) Indication: Nodule of right lung Current nonsmoker (Renamed from Current non-smoker) : Follow up after consult Indication: Current nonsmoker (Renamed from Current non-smoker) Sleep apnea : Reviewed Diagnostic Tests Indication: Sleep apnea Nodule of right lung : 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 Indication: Nodule of right lung Impaired fasting glucose : Reviewed Diagnostic Tests Indication: Impaired fasting glucose Aspiration of liquid, initial encounter : Reviewed Lab Indication: Aspiration of liquid, initial encounter BMI 26.0-26.9,adult : Eprescribed prescriptions (G8553) Indication: BMI 26.0-26.9,adult Atelectasis, left : Eprescribed prescriptions (G8553) Indication: Atelectasis, left Current nonsmoker (Renamed from Current non-smoker) : Follow up - Make appt after diagnostic tests Indication: Current nonsmoker (Renamed from Current non-smoker) BMI 28.0-28.9,adult : Eprescribed prescriptions (G8553) Indication: BMI 28.0-28.9,adult BMI 28.0-28.9,adult : Follow up in 10 days Indication: BMI 28.0-28.9,adult BMI 28.0-28.9,adult : Eprescribed prescriptions (G8553) Indication: BMI 28.0-28.9,adult Current nonsmoker (Renamed from Current non-smoker) : Follow up in 4 months Indication: Current nonsmoker (Renamed from Current non-smoker) Testosterone deficiency : Eprescribed prescriptions (G8553) Indication: Testosterone deficiency BMI 29.0-29.9,adult : Follow up in 7 weeks Indication: BMI 29.0-29.9,adult Fatigue : Eprescribed prescriptions (G8553) Indication: Fatigue BMI 28.0-28.9,adult : Follow up in 2 weeks Indication: BMI 28.0-28.9,adult Lower back pain : Eprescribed prescriptions (G8553) Indication: Lower back pain Dizziness and giddiness : Eprescribed prescriptions (G8553) Indication: Dizziness and giddiness Back pain : Follow up in 1 week Indication: Back pain Back pain : Eprescribed prescriptions (G8553) Indication: Back pain Rash : Follow up if no improvement or if symptoms worsen Indication: Rash Night sweats : Follow up in 2 weeks with [facility] for gen med Indication: Night sweats Mouth pain : Reviewed Diagnostic Tests Indication: Mouth pain Right knee pain : Knee Injections Indication: Right knee pain Right knee pain : Knee Injections Indication: Right knee pain Diabetes mellitus with neuropathy : Blood Glucose Test: blood Indication: Diabetes mellitus with neuropathy Diabetes mellitus with neuropathy : Eprescribed prescriptions (G8553) Indication: Diabetes mellitus with neuropathy Epigastric pain : Eprescribed prescriptions (G8553) Indication: Epigastric pain Epigastric pain : Eprescribed prescriptions (G8553) Indication: Epigastric pain Multilevel degenerative disc disease : Eprescribed prescriptions (G8553) Indication: Multilevel degenerative disc disease Chronic constipation : Allergies: Controlling Your Environment: allergen Indication: Chronic constipation Heartburn : Heartburn *: gastroesophageal reflux Indication: Heartburn Diabetes mellitus with neuropathy : Diabetes Overview (Living with Diabetes): type 2 diabetes mellitus Indication: Diabetes mellitus with neuropathy Low Back Pain : Continue Current Prescription(s) Indication: Low Back Pain Low Back Pain : Low Back Pain: Brief Version *: back pain Indication: Low Back Pain Displacement of lumbar intervertebral disc without myelopathy : Follow up in 4 weeks Indication: Displacement of lumbar intervertebral disc without myelopathy Planned Observations TESTOSTERONE FREE (90934)Indication: Low testosterone On: 88-Vkb-425600:30 Request Folate (96320)Indication: Fatigue On: :28 Request VITAMIN B-12 (CYANOCOBALAMIN) (55156)Indication: Fatigue On: : Request ASHOK (ANTINUCLEAR ANTIBODY) (13792)Indication: Fatigue On: : Request CBC (AUTO) (08688)Indication: Fatigue On: : Request TSH (34000)Indication: Fatigue On: : Request RHEUMATOID FACTOR-QUANT (60351)Indication: Fatigue On: : Request C-Reactive Protein (15385)Indication: Joint pain On: : Request SED RATE ERYTHROCYTE (49529)Indication: Joint pain On: : Request PSA (Medicare - G0103) (90447)Indication: Testosterone deficiency On: 82-Dww-46487:19 Request Comments: after Jun 24, 2017 RHEUMATOID FACTOR-QUANT (99007)Indication: Multiple joint pain On: 3-Hpk-322193:36 Request Hemoglobin Glyclated (HGB A1C) (05524)Indication: Impaired fasting glucose On: :41 Request Comments: recheck in 2-3 months Metabolic Panel, Comprehensive (38637)Indication: Impaired fasting glucose On: 6-Fqi-714697:41 Request Comments: recheck in 2-3 months LDH (LD) (LACTATE DEHYDROGENASE) (80147)Indication: Night sweats On: 0-Gfw-686825:35 Request Comments: today FSH AND LH (27211)Indication: Testosterone deficiency On: :40 Request TESTOSTERONE FREE (10926)Indication: Testosterone deficiency On: :40 Request CORTISOL FREE (31905)Indication: ACTH elevation On: :34 Request Comments: 24 hour urine ACTH (60129)Indication: ACTH elevation On: :34 Request PSA (PROSTATE SPECIFIC ANTIGEN) (V76.44)Indication: Encounter for routine history and physical exam for male On: 72-Lwi-466626:40 Request Comments: copy to Dr. cullen URINALYSIS, W/ MICRO (96138)Indication: Diabetes mellitus with neuropathy On: :40 Request Comments: copy to Dr. cullen MICROALBUMIN: CREATININE RATIO (35319) AND (98094)Indication: Diabetes mellitus with neuropathy On: :40 Request PSA (PROSTATE SPECIFIC ANTIGEN) (V76.44)Indication: Testosterone deficiency On: :39 Request ACTH (81434)Indication: Abnormal sella turcica syndrome On: : Request TSH (98871)Indication: Abnormal sella turcica syndrome On: : Request CBC with auto diff ([id number])Indication: Diabetes mellitus with neuropathy On: : Request METABOLIC PANEL, COMPREHENSIVE (97846)Indication: Hyperlipidemia On: Request LIPID PANEL (41287)Indication: Hyperlipidemia On: : Request HgA1C , Office (72478)Indication: Diabetes mellitus with neuropathy On: 45-Ldw-519887:41 Request TESTOSTERONE ,TOT/FREE 28129 (61328)Indication: Testosterone deficiency On: :26 Request Comments: recheck prior to October 2013 appoinment HIV-1 ANTIBODY ([id number])Indication: Myalgia On: : Request serum immunofixation (65400)Indication: Myalgia On: : Request ANCA-P (ANTI NEUTROPHIL CYTOPLASMIC ANTIBODY)Indication: Myalgia On: : Request ANCA-C (ANTI NEUTROPHIL CYTOPLASMIC ANTIBODY)Indication: Myalgia On: : Request ASHOK (ANTINUCLEAR ANTIBODY) ([id number])Indication: Myalgia On: : Request ALDOLASE (39936)Indication: Myalgia On: : Request Methymalonic Acid, Serum (62110)Indication: Memory loss or impairment On: :03 Request Vitamin B-12 (cyanocobalamin) (48890)Indication: Memory loss or impairment On: :03 Request FSH AND LH (05825)Indication: Weakness On: :58 Request TESTOSTERONE FREE (26902)Indication: Weakness On: 14-Aug-20139:57 Request Creatine Kinase Total (18186)Indication: Myalgia On: :51 Request Sed Rate Erythrocyte (53955)Indication: Myalgia On: 14-Aug-20139:51 Request METABOLIC PANEL, COMPREHENSIVE (53084)Indication: Hyperlipidemia On: :57 Request LIPOPROTEIN, BLD, BY NMR (94014)Indication: Hyperlipidemia On: :57 Request TESTOSTERONE ,TOT/FREE 95268 (07453)Indication: Unspecified Diagnosis On: :21 Request FSH AND LH (40464)Indication: Unspecified Diagnosis On: :21 Request PROLACTIN (58723)Indication: Abnormal sella turcica syndrome On: 49-Jbm-078659:45 Request Comments: today LIPID PANEL (08413)Indication: Hyperlipidemia On: 67-Eyw-074581:41 Request Comments: 4months SOMATOMEDIN ([id number])Indication: Abnormal sella turcica syndrome On: 18-Nun-702116:17 Request TESTOSTERONE FREE ([id number])Indication: Abnormal sella turcica syndrome On: 71-Hlw-009186:17 Request GONADOTROPIN-LH ([id number])Indication: Abnormal sella turcica syndrome On: 88-Quh-344071:17 Request GONADOTROPIN-FSH ([id number])Indication: Abnormal sella turcica syndrome On: 99-Pap-412926:17 Request RPR (RAPID PLASMA REAGIN) ([id number])Indication: Idiopathic neuropathy On: 72-Ied-858606:47 Request Comments: add to labs already drawn ALDOLASE ([id number])Indication: Elevated LFTs On: 51-Vkq-829956:46 Request Hemoglobin Glyclated (HGB A1C) ([id number])Indication: Idiopathic neuropathy On: 11-Hhr-657181:24 Request T4, FREE (THYROXINE) ([id number])Indication: Elevated LFTs On: :02 Request TSH (77261)Indication: Elevated LFTs On: 99-Mdd-764282:02 Request Metabolic Panel, Comprehensive (27703)Indication: Elevated LFTs On: 70-Gya-137047:02 Request Folic Acid Serum (02869)Indication: Headache On: : Request Methylmalonic acid, serum 95612Ybfbvtgnov: Headache On: : Request Vitamin B-12 (cyanocobalamin) (65246)Indication: Headache On: : Request Ferritin (33362)Indication: Headache On: : Request C-Reactive Protein (08365)Indication: Headache On: : Request ANCA-P (ANTI NEUTROPHIL CYTOPLASMIC ANTIBODY)Indication: Elevated LFTs On: : Request ANCA-C (ANTI NEUTROPHIL CYTOPLASMIC ANTIBODY)Indication: Elevated LFTs On: : Request HEAVY METAL SCREEN ([id number])Indication: Elevated LFTs On: : Request ASHOK (ANTINUCLEAR ANTIBODY) ([id number])Indication: Elevated LFTs On: : Request CBC (Auto) ([id number])Indication: Elevated LFTs On: :59 Request Planned Encounters Medical; 2 Week FU - On: 01-Nov-2018 10:30 [facility] Elva Villatoro CNP, CNP, Mary E Planned Procedures Radiology - Left KneeBy: Irving NARANJO, On: 16-Oct-2018 Intent Elva Khalil CNP CT - Chest (Without Contrast)By: On: 25-Apr-2018 Intent Elva Villatoro CNP, CNP, Mary E Aerosol Treatment ([id number])By: Irving On: 20-Dec-2017 Intent Elva NARANJO CNP, Mary E MODIFIED COOKIE BARIUM SWALLOW On: 24-Jun-2017 Intent ([id number])By: Elva Villatoro CNP, CNP, Mary E ESOPHAGRAM ([id number])By: Irving NARANJO On: 18-Apr-2017 Intent Elva Khalil CNP Aerosol Treatment ([id number])By: Irving On: 18-Apr-2017 Intent Elva NARANJO CNP, Mary E Radiology - ChestBy: Elva Villatoro CNP On: 11-Apr-2017 Intent Elva Berry CNP Overnight Pulse OX ([id number])By: Irving On: 11-Apr-2017 Intent Elva NARANJO CNP, Elva Blancas Overnight Pulse OX ([id number])By: Irving On: 11-Apr-2017 Intent Elva NARANJO CNP, Mary E Spirometry ([id number])By: Irving NARANJO, On: 11-Apr-2017 Intent Elva Khalil CNP Comments: normal ELECTROCARDIOGRAM, COMPLETE (ECG) On: 11-Apr-2017 Intent ([id number])By: Irving NARANJO Elva Villatoro Comments: sinus bradycardia, history of stress test in 2013 normal MARCELLA, Elva Blancas Aerosol Treatment ([id number])By: Irving On: 11-Apr-2017 Intent Elva NARANJO CNP, Mary E MRA OF BRAIN ([id number])By: Trini MONTGOMERY, On: 13-Jul-2016 Intent Satya MRI OF BRAIN WITH AND WITHOUT On: 13-Jul-2016 Intent CONTRAST ([id number])By: Satya Feliz MD Comments: Dizziness, tinnitis, pressure on the back of head, headche . 2 month worse f0r 1 day.MRI 12/19: tiny non enhancing lt laterla pituitary gland.MRI pituitary: empty sella, non enhancing foci,Pls do MRI brain and also Pituitary mRI CT - Abdomen & Pelvis Stone On: 24-Jun-2016 Intent ProtocolBy: Satya Feliz MD CT - Pelvis (IV Contrast Needed)By: On: 24-Jun-2016 Intent Satya Feliz MD Kenalog Injection, 10 mgm On: 13-Nov-2015 Intent ([id number])By: Alee Zapata MD Comments: X4 Ultrasound - TesticularBy: Benny On: 13-Nov-2015 Intent Alee MONTGOMERY Comments: AND OF GROIN AREAS WHERE TENDER TO ASSURE NOT SEE HERNIA Kenalog Injection, 10 mgm On: 10-Jun-2015 Intent ([id number])By: Alee Zapata MD Comments: x 4 CT - Chest (IV Contrast Needed)By: On: 10-Apr-2015 Intent Alee Zapata MD Comments: attenetion right axilla node COMPUTED TOMOGRAPHY ANGIOGRAPHY OF On: 12-Jul-2014 Intent CHEST WITH AND WITHOUT CONTRAST ([id number])By: Alee Zapata MD CT - Chest (IV Contrast Needed)By: On: 12-Jul-2014 Intent Alee Zapata MD Ultrasound - GallbladderBy: Benny On: 25-Jun-2014 Intent Alee MONTGOMERY Nuclear Medicine - HIDA w/CPKBy: On: 25-Jun-2014 Intent Alee Zapata MD Comments: if US negative. Eprescribed prescriptions (G8553)By: On: 09-Jan-2014 Intent Bonita Hung DO A MRI - Lumbar SpineBy: Bonita Hung DO On: 04-Jan-2014 Intent A Radiology - Lumbar SpineBy: Benny On: 22-Nov-2013 Intent Alee MONTGOMERY Eprescribed prescriptions (G8553)By: On: 23-Oct-2013 Intent Debbie BRUNO Marylin Eprescribed prescriptions (G8553)By: On: 16-Oct-2013 Intent Long ROOFER GYPSUM, Arelis L Eprescribed prescriptions (G8553)By: On: 25-Sep-2013 Intent Long ROOFER GYPSUM, Arelis L Eprescribed prescriptions (G8553)By: On: 14-Aug-2013 Intent Long ROOFER GYPSUM, Arelis L Jcbovlbzv-Jqh-Vlpgr ([id number])By: On: 08-May-2013 Intent Alee Zapata MD Eprescribed prescriptions (G8553)By: On: 08-May-2013 Intent Caity Melendez Eprescribed prescriptions (G8553)By: On: 27-Mar-2013 Intent Donna Melendezsea MRI - Brain (IV Contrast Needed)By: On: 27-Jan-2012 Intent Alee Zapata MD MRI - OtherBy: Alee Zapata MD On: 06-Jan-2012 Intent Comments: Attn: Pituitary MRI - OtherBy: Alee Zapata MD On: 03-Jan-2012 Intent Comments: MRA BRAIN MRI - OtherBy: Alee Zapata MD On: 03-Jan-2012 Intent Comments: Left Maxillary Sinus Nuclear Medicine - Bone ScanBy: On: 30-Dec-2011 Intent Alee Zapata MD EKG ([id number])By: YOLA Jiménez On: 30-Dec-2011 Intent Pulse Oximetry ([id number])By: Tino, On: 30-Dec-2011 Intent YOLA Planned Medications INJECTION, TRIAMCINOLONE ACETONIDE, NOT OTHERWISE SPECIFIED, 10 MG Ordered: 10-Jun-2015 Pending Alee Zapata MD INJECTION, TRIAMCINOLONE ACETONIDE, NOT OTHERWISE SPECIFIED, 10 MG Ordered: 13-Nov-2015 Pending Alee Zapata MD Instructions Name Dates Details Current nonsmoker (Renamed from Current non-smoker) : How to access health information online Indication: Current nonsmoker (Renamed from Current non-smoker) Current nonsmoker (Renamed from Current non-smoker) : How to access health information online - Detail Indication: Current nonsmoker (Renamed from Current non-smoker) Current nonsmoker (Renamed from Current non-smoker) : Patient Instructions Indication: Current nonsmoker (Renamed from Current non-smoker) Current nonsmoker (Renamed from Current non-smoker) : How to access health information online Indication: Current nonsmoker (Renamed from Current non-smoker) Current nonsmoker (Renamed from Current non-smoker) : How to access health information online - Detail Indication: Current nonsmoker (Renamed from Current non-smoker) Current nonsmoker (Renamed from Current non-smoker) : Patient Instructions Indication: Current nonsmoker (Renamed from Current non-smoker) Impaired fasting glucose : How to access health information online Indication: Impaired fasting glucose Impaired fasting glucose : How to access health information online - Detail Indication: Impaired fasting glucose Impaired fasting glucose : Patient Instructions Indication: Impaired fasting glucose Impaired fasting glucose : How to access health information online Indication: Impaired fasting glucose Impaired fasting glucose : How to access health information online - Detail Indication: Impaired fasting glucose Impaired fasting glucose : Patient Instructions Indication: Impaired fasting glucose Nodule of right lung : How to access health information online Indication: Nodule of right lung Nodule of right lung : How to access health information online - Detail Indication: Nodule of right lung Nodule of right lung : Patient Instructions Indication: Nodule of right lung BMI 26.0-26.9,adult : How to access health information online Indication: BMI 26.0-26.9,adult BMI 26.0-26.9,adult : How to access health information online - Detail Indication: BMI 26.0-26.9,adult BMI 26.0-26.9,adult : Patient Instructions Indication: BMI 26.0-26.9,adult Atelectasis, left : How to access health information online Indication: Atelectasis, left Atelectasis, left : How to access health information online - Detail Indication: Atelectasis, left Atelectasis, left : Patient Instructions Indication: Atelectasis, left BMI 28.0-28.9,adult : How to access health information online Indication: BMI 28.0-28.9,adult BMI 28.0-28.9,adult : How to access health information online - Detail Indication: BMI 28.0-28.9,adult BMI 28.0-28.9,adult : Patient Instructions Indication: BMI 28.0-28.9,adult BMI 28.0-28.9,adult : How to access health information online Indication: BMI 28.0-28.9,adult BMI 28.0-28.9,adult : How to access health information online - Detail Indication: BMI 28.0-28.9,adult BMI 28.0-28.9,adult : Patient Instructions Indication: BMI 28.0-28.9,adult Testosterone deficiency : How to access health information online Indication: Testosterone deficiency Testosterone deficiency : How to access health information online - Detail Indication: Testosterone deficiency Testosterone deficiency : Patient Instructions Indication: Testosterone deficiency Fatigue : How to access health information online Indication: Fatigue Fatigue : How to access health information online - Detail Indication: Fatigue Fatigue : Patient Instructions Indication: Fatigue Lower back pain : How to access health information online Indication: Lower back pain Lower back pain : How to access health information online - Detail Indication: Lower back pain Lower back pain : Patient Instructions Indication: Lower back pain Dizziness and giddiness : How to access health information online Indication: Dizziness and giddiness Dizziness and giddiness : How to access health information online - Detail Indication: Dizziness and giddiness Dizziness and giddiness : Patient Instructions Indication: Dizziness and giddiness Back pain : How to access health information online Indication: Back pain Back pain : How to access health information online - Detail Indication: Back pain Back pain : Patient Instructions Indication: Back pain Right knee pain : How to access health information online Indication: Right knee pain Right knee pain : How to access health information online - Detail Indication: Right knee pain Right knee pain : Patient Instructions Indication: Right knee pain Diabetes mellitus with neuropathy : How to access health information online Indication: Diabetes mellitus with neuropathy Diabetes mellitus with neuropathy : How to access health information online - Detail Indication: Diabetes mellitus with neuropathy Diabetes mellitus with neuropathy : Patient Instructions Indication: Diabetes mellitus with neuropathy Epigastric pain : Patient Instructions Indication: Epigastric pain Multilevel degenerative disc disease : How to access health information online Indication: Multilevel degenerative disc disease Multilevel degenerative disc disease : How to access health information online - Detail Indication: Multilevel degenerative disc disease Multilevel degenerative disc disease : Patient Instructions Indication: Multilevel degenerative disc disease Pain in right hip : Patient Instructions Indication: Pain in right hip Displacement of lumbar intervertebral disc without myelopathy : Patient Instructions Indication: Displacement of lumbar intervertebral disc without myelopathy Myalgia : Patient Instructions Indication: Myalgia Weakness : Patient Instructions Indication: Weakness Hyperlipidemia : Patient Instructions Indication: Hyperlipidemia Chronic constipation : Patient Instructions Indication: Chronic constipation Heartburn : Patient Instructions Indication: Heartburn Abdominal pain : Patient Instructions Indication: Abdominal pain Diabetes mellitus with neuropathy : Patient Instructions Indication: Diabetes mellitus with neuropathy Encounters Office Visit On: 16-Oct-2018 15:37 Encounter Reason: Follow up for chronic medical issues - The patient does not feel well, has decreased energy level and is sleeping poorly. Patient has been compliant with instructions. Current medication use: no side ef End: 16-Oct-2018 16:42 fects. Nutrition: balanced diet., [ADDITIONAL REASON] Oral Mucosal Lesion - Symptoms include single oral lesion. The lesion(s) is/are described as painful and white. Onset was 1 week(s) ago. , [ADDITIONAL REASON] pain - pain in knees, groin, wrist muscles has been going on for 6 weeks. pain causes patient nausea. patient also complains of fatigue. , [ADDITIONAL REASON] Sinusitis - Note for Sinusitis: Went to see Dr. Morales, was given itraconazole for ? fungal sinus which helped, but started having pain in joints. Worse in both knees, both ankles, groin with difficulty sitting up hip, shoulder, ankle . Feet feel swollen. Encounter Diagnosis: Current nonsmoker (Renamed from Current non-smoker), BMI 27.0- 27.9,adult, Joint pain, Fatigue (780.79), Multilevel degenerative disc disease, Low testosterone, Mouth pain, Acute pain of left knee, Dizziness and giddiness [facility] Office Visit On: 26-Jul-2018 9:19 Encounter Reason: Follow up for chronic medical issues - The patient does not feel well, has decreased energy level and is sleeping poorly. Patient has been compliant with instructions. Current medication use: experienci End: 26-Jul-2018 10:17 ng side effects (tramadol- constipation (normal for me)). Nutrition: balanced diet. Note for Follow up for chronic medical issues: Had Dr. Jeong in [place] did ENT and eustachian tube dilatation, but 9 days later blocked again was told to use flonase but made it worse, [ADDITIONAL REASON] Insomnia - Note for Insomnia: Unable to sleep because of pain, pain in hip alexis ulders and all over.Had epidural with Roger injections will see him every month for tramadol Encounter Diagnosis: Impaired fasting glucose, Current nonsmoker (Renamed from Current non-smoker), Multilevel degenerative disc disease, BMI 26.0-26.9,adult, Low testosterone [facility] Lab Order On: 15-May-2018 9:34 Encounter Diagnosis: Hyperlipidemia End: 15-May-2018 9:36 [facility] Office Visit On: 25-Apr-2018 8:41 Encounter Reason: Follow up for chronic medical issues - The patient feels well with minor complaints and is sleeping poorly. Patient has been compliant with instructions. Nutrition: balanced diet., End: 25-Apr-2018 9:51 [ADDITIONAL REASON] Follow up tests - Diagnostic tests include other (labs). Encounter Diagnosis: Current nonsmoker (Renamed from Current non-smoker), Impaired fasting glucose, BMI 26.0-26.9,adult, Obstructive sleep apnea, adult, Nodule of right lung, Dysphagia, unspecified dysphagia, Multilevel degenerative disc disease, Low testosterone [facility] Annotation/Addendum On: 17-Apr-2018 9:13 Encounter Diagnosis: Low testosterone, Encounter for screening for malignant neoplasm of prostate (Renamed from Screening for prostate cancer) End: 17-Apr-2018 9:21 [facility] Office Visit On: 20-Dec-2017 9:39 Encounter Reason: Follow up for chronic medical issues - The patient feels well with minor complaints (still having trouble swallowing. ??Would like to discuss Sibilia's appt also.) and is sleeping poorly. Patient has be End: 20-Dec-2017 10:40 en compliant with instructions. Nutrition: balanced diet. Note for Follow up for chronic medical issues: Still aspirating coughing or choking after drinking liquid continues. This is most concerningHa d surgery by Dr. Parra in [place] May 30, into left maxilary sinus on clinda and cipro, biopsy pending. 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 Had CT of thorax with contrast as second opinion for cou gh, found subplearual nodule in rt lower lobe indicate suplueral fibrotic change rec rept CT 12 monts (May 2018) . Report poly nerupathy x 5 years or 2006, diagnosed small fiber neuropathyPt had chroni c bilateral L5 and rt L4 radiculopathies in the lower limbsMid left mononeuropathy at elbow segment, [ADDITIONAL REASON] Bronchitis - Note for Bronchitis : Saw neurologist Kathy at [facility], ??CT tem poral bone of facial and extensive EMGchest tightness Encounter Diagnosis: Impaired fasting glucose, Current nonsmoker (Renamed from Current non-smoker), BMI 26.0- 26.9,adult, Bronchitis [facility] Annotation/Addendum On: 07-Oct-2017 15:18 [facility] End: 07-Oct-2017 15:21 Annotation/Addendum On: 07-Oct-2017 13:10 Encounter Diagnosis: Chronic pain End: 07-Oct-2017 13:16 [facility] Annotation/Addendum On: 04-Oct-2017 17:01 Encounter Diagnosis: Chronic pain End: 04-Oct-2017 17:07 [facility] Annotation/Addendum On: 14-Sep-2017 13:13 Encounter Diagnosis: Nodule of right lung End: 14-Sep-2017 13:15 [facility] Office Visit On: 14-Sep-2017 10:31 Encounter Reason: swallow problems, [ADDITIONAL REASON] Weight Loss - Note for Weight loss: Had wt at home 227 , now 202.4 , [ADDITIONAL REASON] Dysphagia - Note for Dysphagia: Recent workup for dysphagia and cough, has see End: 14-Sep-2017 11:48 n Naomy in past and saw Bayron Woods at [facility]. Encounter Diagnosis: BMI 27.0-27.9,adult, Nodule of right lung, Current nonsmoker (Renamed from Current non-smoker), Dysphagia, unspecified dysphagia, Low testosterone, Chronic pain, Osteonecrosis, maxilla [facility] Annotation/Addendum On: 31-Aug-2017 15:12 Encounter Diagnosis: Multilevel degenerative disc disease End: 31-Aug-2017 15:19 [facility] Annotation/Addendum On: 01-Aug-2017 11:11 [facility] End: 01-Aug-2017 11:13 Office Visit On: 24-Jun-2017 9:07 Encounter Reason: Follow up for chronic medical issues - The patient feels well with minor complaints (still having trouble swallowing. ??Would like to discuss Johnny's appt also.) and is sleeping poorly. Patient has be End: 24-Jun-2017 10:23 en compliant with instructions. Patient sleeps 5 (sleep apnea) hours per night. Nutrition: balanced diet. Note for Follow up for chronic medical issues: Still aspirating coughing or choking after drin clive liquid continues. This is most concerningHad surgery by Dr. Parra in [place] May 30, into left maxilary sinus on clinda and cipro, biopsy pending. 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 Had CT o f thorax with contrast as second opinion for cough, found subplearual nodule in rt lower lobe indicate suplueral fibrotic change rec rept CT 12 monts (May 2018) . Report poly nerupathy x 5 years or 2006, diagnosed small fiber neuropathy Encounter Diagnosis: BMI 26.0-26.9,adult, Impaired fasting glucose, Current nonsmoker (Renamed from Current non-smoker), Aspiration of liquid, initial encounter, Sleep apnea, Nodule of right lung [facility] Office Visit On: 29-Apr-2017 10:36 Encounter Reason: Follow up tests - Diagnostic tests include other (esophagram). Note for Discuss procedure results: Has trouble with mucous at night and wakes him at night and makes him coughEncounter Diagnosis: End: 29-Apr-2017 11:31 Current nonsmoker (Renamed from Current non-smoker), BMI 28.0-28.9,adult, Atelectasis, left, Shortness of breath at rest, Cough [facility] Office Visit On: 18-Apr-2017 9:54 Encounter Reason: Follow up acute care visit - The patient does not feel well and worsening. Patient has been compliant with instructions. Current medication use: no side effects and compliant with dosing regimen., End: 18-Apr-2017 11:44 [ADDITIONAL REASON] Follow up tests - Date: (04/11 chest x-ray). , [ADDITIONAL REASON] Headache , [ADDITIONAL REASON] Chest Pain - Note for Chest pain: Mid sternal chest pain on and off caban had severe dizziness April 14 and went home and Tuesday Encounter Diagnosis: Current nonsmoker (Renamed from Current non-smoker), BMI 28.0-28.9,adult, Atelectasis, left, Atypical chest pain, Halitosis, Dysphagia, unspecified dysphagia [facility] Annotation/Addendum On: 11-Apr-2017 12:05 Encounter Diagnosis: Atelectasis, left End: 11-Apr-2017 12:11 [facility] Office Visit On: 11-Apr-2017 8:52 Encounter Reason: Shortness of Breath - Symptoms include chest tightness and cough (clearing throat). Onset was 2 month(s) ago. The patient describes this as unchanged. Note for Shortness of breath: Struggling to breat End: 11-Apr-2017 9:57 he worse in am, with blue tint with some chest tightness. Known history of GERDShort of breat now cant get breath since flu in January worseningSeems the generic of tramadol , [ADDITIONAL REASON] Chest Pain - Symptoms include chest pain (describes as chest tight ness), cough and dyspnea. The pain is located in the epigastrium. The pain radiates to the back. The patient describes the pain as tight. Encounter Diagnosis: BMI 28.0-28.9,adult, Shortness of breath at rest, Cough, Chronic GERD, Allergic shiners [facility] Annotation/Addendum On: 11-Mar-2017 15:09 [facility] End: 11-Mar-2017 15:10 Office Visit On: 16-Feb-2017 8:29 Encounter Reason: Follow up tests - Diagnostic tests include other (labs). Date: (02/14/17)., [ADDITIONAL REASON] UTI - The urinary symptoms are described as painful urination and burning. , End: 16-Feb-2017 9:11 [ADDITIONAL REASON] Dizziness - Note for Dizziness: occasional dizziness Encounter Diagnosis: BMI 28.0-28.9,adult, Current nonsmoker (Renamed from Current non- smoker), UTI symptoms, Testosterone deficiency, Dizziness, Post-viral cough syndrome [facility] Annotation/Addendum On: 31-Dec-2016 16:05 Encounter Diagnosis: Unspecified Diagnosis End: 31-Dec-2016 16:07 [facility] Annotation/Addendum On: 31-Dec-2016 9:11 Encounter Diagnosis: Testosterone deficiency End: 31-Dec-2016 9:26 [facility] Office Visit On: 28-Dec-2016 8:28 Encounter Reason: Follow up tests - Diagnostic tests include other (labs)., [ADDITIONAL REASON] Skin Lesions - Symptoms include single skin lesion. Lesion(s) are located on the End: 28-Dec-2016 9:33 left side of the face. The patient describes the lesion(s) as itchy and painful. The symptoms occur constantly. The patient describes this as worsening. Presentation included pain. Encounter Diagnosis: Fatigue, Current nonsmoker (Renamed from Current non-smoker), BMI 29.0-29.9,adult, Skin lesion of face, Vitamin D deficiency, Vitamin B12 deficiency, Hyperglycemia, Testosterone deficiency [facility] Office Visit On: 14-Dec-2016 10:59 Encounter Reason: Fatigue - Symptoms include fatigue, poor sleep and irritability. Onset was gradual. The patient describes this as worsening (6 months). Previous presentation included fatigue and poor sleep., End: 14-Dec-2016 11:46 [ADDITIONAL REASON] Dizziness - Symptoms include dizziness. The dizziness is described as lightheadedness. The patient describes this as worsening. Previous presentation included lightheadedness. , [ADDITIONAL REASON] pain - Gereral pain wakes him up Encounter Diagnosis: Current nonsmoker (Renamed from Current non-smoker), BMI 28.0-28.9,adult, Lower back pain, Multiple joint pain, Fatigue, Groin pain, left [facility] Annotation/Addendum On: 10-Dec-2016 13:14 [facility] End: 10-Dec-2016 14:18 Annotation/Addendum On: 20-Oct-2016 13:28 Encounter Diagnosis: Unspecified Diagnosis End: 20-Oct-2016 13:37 [facility] Office Visit On: 13-Jul-2016 8:28 Encounter Reason: Follow up for chronic medical issues - The patient does not feel well (dizzy and tinnitis, lightheadness). Patient has been compliant with instructions. Patient sleeps 6 hours per night. Nutrition: balanced diet. End: 13-Jul-2016 17:03 Encounter Diagnosis: Current nonsmoker (Renamed from Current non-smoker), BMI 28.0- 28.9,adult, Dizziness and giddiness, Back pain, Right testicular pain, Hearing decreased [facility] Office Visit On: 24-Jun-2016 9:21 Encounter Reason: Back Pain Lumbar, Acute - This condition occurred without any known injury. Symptoms include pain and decreased range of motion. Symptoms are located symmetrically. The pain radiates to the left groin a End: 24-Jun-2016 16:38 nd right groin. The patient describes the pain as sharp, dull and aching. Onset was week(s) ago. The patient describes this pain as worsening. Associated symptoms include suprapubic pain and dysuria. Current treatment includes non- opioid analgesics. Encounter Diagnosis: Back pain, Dysuria, Hyperlipidemia [facility] Office Visit On: 08-Mar-2016 10:20 Encounter Reason: Follow up acute care visit - The patient feeling better since last seen (rash better). Patient has been compliant with instructions. Current medication use: no side effects.Encounter Diagnosis: Mouth pain, Bone disease, Rash End: 08-Mar-2016 10:49 [facility] Annotation/Addendum On: 24-Feb-2016 8:16 Encounter Diagnosis: Bone disease End: 24-Feb-2016 9:57 [facility] Office Visit On: 23-Feb-2016 14:46 Encounter Reason: Rash - Symptoms include pain and skin redness. The skin rash is located on the left truncal area and right truncal area. Onset was 1 week(s) ago. The symptoms occur constantly (more noticeable in mornin End: 23-Feb-2016 15:40 g). The patient describes this as moderate in severity and worsening. Associated symptoms do not include fever, excoriations, fissuring, pustules, purulent drainage or serous discharge. The patient is n ot currently being treated for this problem. Previous presentation included rash, redness and itching.Encounter Diagnosis: Rash, Mouth pain, Night sweats [facility] Lab Order On: 14-Nov-2015 14:40 Encounter Diagnosis: Impaired fasting glucose End: 14-Nov-2015 14:41 [facility] Annotation/Addendum On: 13-Nov-2015 11:40 Encounter Diagnosis: Right testicular pain, Hyperlipidemia End: 13-Nov-2015 11:42 [facility] Office Visit On: 13-Nov-2015 10:55 Encounter Reason: Injections - The medication the patient is here to receive is other (2 cc marcaine lot # [id number] exp 01-05-2017 1 cc kenalog lot # [id number] right knee given intra artuicular per Dr. 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 Patient has been compliant with instructions. Current medication use: no side ef End: 24-Mar-2015 11:43 fects, compliant with dosing regimen and considered effective by patient. The medical issues the patient is following up for include blood sugar issues, cardiac issues, high cholesterol and other (CHAR, myalgias, obesity, DDD, dysphagia, visual changes, constipation, muscle weakness, elevated lft's )., [ADDITIONAL REASON] Follow up tests - Date: (03/14/15 blood work). 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 Date: ( Dr. Cam in [place] ). 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1), Elevated LFT (790.6), Well Male Exam (V70.0) [facility] Office Visit On: 07-Oct-2014 9:39 Encounter Diagnosis: Epigastric pain, Symptom, Weakness (728.87), Diabetes typeII, controlled, neuro comp (250.60), Fatigue (780.79), Obstructive sleep apnea (327.23), Degenerative Disc Disease (722.6), Pain in right hip, End: 07-Oct-2014 10:14 DISORDER, 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), Visual Change (443.9), Myalgia(729.1), Heartburn (787.1), Low back pain (724.2), 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 Patient has been compliant with instructions. Current medication use: no side effects and compliant with dosing regimen. Patient sleeps 6 hours p End: 26-Jul-2014 12:11 er night. Impact of disease: emotional impact-moderate. Nutrition: balanced diet and supplemental vitamins.Encounter Diagnosis: Fever and chills, Atypical chest pain, Epigastric pain, Displacement of lumbar intervertebral disc without myelopathy (722.10), Chronic sinusitis (473.9) [facility] Office Visit On: 12-Jul-2014 11:04 Encounter Reason: Follow up acute care visit - The patient feels the same. Patient has been compliant with instructions. Current medication use: no side effects, compliant with dosing regimen and considered effective by End: 12-Jul-2014 11:43 patient. Patient sleeps 7 hours per night. Impact of disease: emotional impact-moderate. Nutrition: balanced diet and supplemental vitamins. The medical issues the patient is following up for include other (chest pain ).Encounter Diagnosis: Epigastric pain, Atypical chest pain, Chronic sinusitis (473.9), Fever and chills [facility] Office Visit On: 25-Jun-2014 10:41 Encounter Reason: Nausea - Symptoms include nausea and abdominal pain (lower rib), while symptoms do not include emesis, regurgitation, anorexia or bloating. Symptom onset was 5 week(s) ago. There is no known event that End: 27-Jun-2014 7:09 preceded symptom onset. Associated symptoms include dehydration (extreme thrist) and dizziness, while associated symptoms do not include diarrhea, constipation, fever or weight loss. Current treatment i ncludes dietary modification (increased fiber to help move bowels).Encounter Diagnosis: Epigastric pain, Chronic sinusitis (473.9) [facility] Office Visit On: 14-May-2014 9:55 Encounter Reason: Follow up acute care visit - The patient feeling better since last seen (stomach issues have cleared up). 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 The symptoms are located in the right hip. The patient describes the hip problem as hip pain and decreased rang End: 09-Jan-2014 0:18 e of motion. Onset was gradual week(s) ago. The symptoms occur constantly. Associated symptoms include low back pain and numbness in the leg. Note for Hip problem: Pt seen Ortho Dr. Wen in [facility]. he did mri of hip and has labral tear - so seeing ortho at [facility] for labral tear - feels like needs more pain meds- also disc disease in back seeing chiropractor tried to go to chiropractor and pt but cangt do pt because hurts to o bad when he tried to do pt- getting nujbness right leg- if sits 10 min - no weak - no pain in leg - but aches Encounter Diagnosis: Low back pain (724.2), Pain in right hip [facility] Office Visit On: 22-Nov-2013 13:56 Encounter Reason: Follow up acute care visit - The patient does not feel well and worsening. Patient has been compliant with instructions. Current medication use: no side effects, compliant with dosing regimen and not co End: 22-Nov-2013 14:46 nsidered effective by patient (prednisone ). Patient sleeps 6 hours per night. Impact of disease: emotional impact-moderate. Nutrition: balanced diet and supplemental vitamins. The medical issues the raúl pinzon is following up for include other (low back pain persisting ).Encounter Diagnosis: Low back pain (724.2) [facility] Office Visit On: 23-Oct-2013 13:00 Encounter Reason: Back Pain - This condition occurred following a specific injury. The injury involved the lower back. This occurred 1 day(s) ago. Symptoms include back pain. Symptoms are located in the symmetrically. Th End: 23-Oct-2013 13:34 e pain radiates to the lower leg.Encounter Diagnosis: Low back pain (724.2), Displacement of lumbar intervertebral disc without myelopathy (722.10) [facility] Office Visit On: 16-Oct-2013 10:06 Encounter Reason: Muscle weaknessEncounter Diagnosis: Symptom, Weakness (728.87), Myalgia(729.1) End: 18-Oct-2013 6:59 [facility] Office Visit On: 25-Sep-2013 11:21 Encounter Reason: Muscle weaknessEncounter Diagnosis: Symptom, Weakness (728.87), Myalgia(729.1) End: 26-Sep-2013 18:31 [facility] Prescription Refill On: 21-Aug-2013 11:15 Encounter Diagnosis: 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 Patient has been compliant with instructions. The medical issues the patient is following up for include blood sugar issues, cardiac issues, high cholesterol and other (CHAR, myalgias, obesity, DDD, dysphagia, visual changes, constipation, muscle weakness, elevated lft's ). 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), Fatigue (780.79), OSTEOMYELITIS, CHRONIC, OTHER SPEC SITE (730.18), Heartburn (787.1), Symptom, Weakness (728.87), Foot pain (729.5), Rib pain (786.50), LOW BACK PAIN WITH RADICULOPATHY (724.4), Constipation(564.00), Disequilibrium of Gait(781.2), Obstructive sleep apnea (327.23), Headache (784.0), Degenerative Disc Disease (722.6), Chronic sinusitis (473.9), Myalgia(729.1), 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 Patient has been compliant with instructions. Current medication use: compliant with dosing regimen. End: 08-May-2013 9:16 Encounter Diagnosis: Constipation(564.00), LOW BACK PAIN WITH RADICULOPATHY (724.4), Heartburn (787.1), Rib pain (786.50), Abdominal pain (789.00), Hyperlipidemia (272.4) [facility] Office Visit On: 30-Mar-2013 10:37 Encounter Reason: Follow up, Diagnostic Procedure Results - Diagnostic tests include other (labs ). Date: (03-27-13). Current symptoms include abdominal pain and other (nausea, constipation, hoarseness, heartburn ).Encounter Diagnosis: End: 30-Mar-2013 11:40 Heartburn (787.1), Abdominal pain (789.00), Constipation(564.00), LOW BACK PAIN WITH RADICULOPATHY (724.4) [facility] Office Visit On: 27-Mar-2013 9:26 Encounter Reason: Nausea - Symptoms include nausea and abdominal pain (ULQ and lower side of back near kidneys), while symptoms do not include emesis, regurgitation or anorexia. Symptom onset was gradual 3 week(s) ago. T End: 28-Mar-2013 21:27 here is no known event that preceded symptom onset. The symptoms occur intermittently. The patient describes this as unchanged. Associated symptoms include dehydration (extreme thrist) and dizziness, wh ile associated symptoms do not include diarrhea, constipation, fever or weight loss. Current treatment includes dietary modification (increased fiber to help move bowels).Encounter Diagnosis: Abdominal pain (789.00), Hyperlipidemia (272.4), Constipation(564.00) [facility] Office Visit On: 23-Oct-2012 8:40 Encounter Reason: Follow up acute care visit - The patient worsening. The medical issues the patient is following up for include other (abd pain).Encounter Diagnosis: Constipation(564.00), LOW BACK PAIN WITH RADICULOPATHY (724.4) End: 23-Oct-2012 9:10 [facility] Office Visit On: 26-Sep-2012 10:10 Encounter Reason: Follow up for chronic medical issues - The patient feels well with minor complaints and has decreased energy level. Patient has been compliant with instructions. Current medication use: no side effects End: 26-Sep-2012 11:00 and compliant with dosing regimen. Patient sleeps 6 hours per night. Impact of disease: emotional impact-mild. Nutrition: balanced diet and supplemental vitamins. 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), Dizziness(780.4), Obstructive sleep apnea (327.23), Obesity,unspecified (278.00), Disequilibrium of Gait(781.2), Premature beats NEC (427.69), Myalgia(729.1), Degenerative Disc Disease (722.6), Elevated LFT (790.6), Displacement of lumbar intervertebral disc without myelopathy (722.10), Visual Change (443.9), Low back pain (724.2), Symptom, Weakness (728.87), 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 Patient has been compliant with instructions. Current medication use: no side effects (I am not any medications). The medical issues the patient is following up for include blood sugar issues, high cholesterol and other (memory loss, DDD, sleep apnea (cpap used), osteomylitis and pituitary disorder). 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 Symptoms include back pain (i have h/o of herniated disc and see dr brooks- chiropract End: 23-Mar-2012 13:02 orwho usually keeps it n check- but this time is getting worse adn pain no matter what i do - i cant sleep- i have taken aleve or advil with little relief ) and stiffness. Symptoms are located in the mi dline lower back. The pain radiates to the arm and foot. The patient describes the pain as sharp. The patient describes symptoms as moderate in severity and worsening. Symptoms are exacerbated by standi ng, sitting, lifting, bending, twisting and walking down stairs. Symptoms are relieved by rest. Associated symptoms include leg numbness (toe is numb worse on R side), while associated symptoms do not i nclude urinary incontinence or fecal incontinence. Current treatment includes nonsteroidal anti-inflammatory drugs and rest.Encounter Diagnosis: Low back pain (724.2) [facility] Office Visit On: 23-Feb-2012 14:16 Encounter Reason: Back Pain - This condition occurred following a specific injury (twisted when getting out of bed and felt a pull). Symptoms include back pain (i have h/o of herniated disc and see dr brooks- chiropract End: 23-Feb-2012 15:11 orwho usually keeps it n check- but this time is getting worse adn pain no matter what i do - i cant sleep- i have taken aleve or advil with little relief ) and stiffness. Symptoms are located in the mi dline lower back. The pain radiates to the arm and foot. The patient describes the pain as sharp. The patient describes symptoms as moderate in severity and worsening. Symptoms are exacerbated by standi ng, sitting, lifting, bending, twisting and walking down stairs. Symptoms are relieved by rest. Associated symptoms include leg numbness (toe is numb worse on R side), while associated symptoms do not i nclude urinary incontinence or fecal incontinence. Current treatment includes nonsteroidal anti-inflammatory drugs and rest.Encounter Diagnosis: Low back pain (724.2), LOW BACK PAIN WITH RADICULOPATHY (724.4), Displacement of lumbar intervertebral disc without myelopathy (722.10) [facility] Phone Encounter On: 15-Feb-2012 9:19 Encounter Diagnosis: Unspecified Diagnosis End: 15-Feb-2012 9:21 [facility] Office Visit On: 27-Jan-2012 10:50 Encounter Reason: Follow up tests - Diagnostic tests include MRI and other (labs ). Date: (01-18-12). 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) End: 06-Jan-2012 9:39 [facility] Phone Encounter On: 04-Jan-2012 7:46 [facility] End: 04-Jan-2012 7:51 Phone Encounter On: 03-Jan-2012 16:03 Encounter Diagnosis: OSTEOMYELITIS, CHRONIC, OTHER SPEC SITE (730.18), Headache (784.0) End: 03-Jan-2012 16:05 [facility] Phone Encounter On: 31-Dec-2011 13:45 Encounter Diagnosis: Elevated LFT (790.6), NEUROPATHY, IDIOPATHIC PERIPHERAL NEC (356.8) End: 31-Dec-2011 13:47 [facility] Office Visit On: 30-Dec-2011 12:23 Encounter Diagnosis: SYMPTOM, POLYDIPSIA (783.5), SYMPTOM, SHORTNESS OF BREATH (786.05), Premature beats NEC (427.69), Obstructive sleep apnea (327.23), Myalgia(729.1), Fatigue (780.79), Degenerative Disc Disease (722.6), Symptom, Weakness (728.87) End: 31-Dec-2011 6:09 , NEUROPATHY, IDIOPATHIC PERIPHERAL NEC (356.8), Disequilibrium of Gait(781.2), Memory loss (780.93), Elevated LFT (790.6), Headache (784.0), Chronic sinusitis (473.9), Dysphagia (787.20), Visual Change (443.9), 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
== END ==
PROVIDERS: Family Provider Nurse Practitioner; PCP Nurse Practitioner; Referring Provider Nurse Practitioner; Visit Provider Nurse Practitioner
DX: M17.12 Unilateral primary osteoarthritis, left knee (principal)
CPT/HCPCS: 73564

== ENCOUNTER → 2018-10-27 14:45 | Outpatient (CLI) | payer MEDICARE, OTHER, SELFPAY ==
--- NOTE | 2018-10-27 14:48 | CT_ITS ---
STUDY: CT ABDOMEN AND PELVIS WITH CONTRAST REASON FOR EXAM: Male, 73 years old. Right lower quadrant pain. RADIATION DOSAGE (If Supplied By Facility): CTDIvol = ( 16.86 ) mGy, DLP = ( 1091.10 ) mGycm TECHNIQUE: Transaxial images were obtained from the dome of the diaphragm to the symphysis pubis with oral contrast. 100mL ml of Isovue 300 contrast was administered. Sagittal and coronal images were reconstructed. Individualized dose optimization techniques were used for this CT. COMPARISON: 07/01/2016. FINDINGS: The visualized lung bases are unremarkable. The visualized portions of the heart are within normal limits. Normal liver. Scattered calcified granulomas are seen. Normal gallbladder and extrahepatic biliary system. There are multiple benign calcified granulomata of the spleen. Normal pancreas. Normal bilateral adrenal glands. Normal right kidney. Normal left kidney. Normal visualized stomach. Normal small intestine. There are multiple colonic diverticula consistent with diverticulosis. The appendix is visualized and appears normal. There is diffuse atherosclerotic calcification of the abdominal aorta with elongation and tortuosity, but without a demonstrated aneurysm. Normal inferior vena cava. Normal retroperitoneum. Normal urinary bladder. There is enlargement of the prostate gland. Bilateral small fat-containing inguinal hernias. There are diffuse degenerative changes of the visualized lumbar spine. CT/Abdomen/Pelvis WITH Contrast IMPRESSION: No definite acute abnormalities are seen. Electronically Signed: López Vaughn MD at 17:26 EST , Service support ,
[2018-10-27 17:00] LABS: CREATININE FINGERSTICK 0.8 mg/dL (0.70-1.30); EGFR FINGERSTICK > 60.0000 mL/min (>60)
== END ==
PROVIDERS: Family Provider Nurse Practitioner; PCP Nurse Practitioner; Referring Provider Nurse Practitioner; Visit Provider Nurse Practitioner
DX: R10.31 Right lower quadrant pain (principal)
CPT/HCPCS: 74177; Q9967

== ENCOUNTER → 2018-11-17 08:49 | Outpatient (CLI) | payer MEDICARE, OTHER, SELFPAY ==
--- NOTE | 2018-11-17 08:54 | BI_ITS ---
MAMMOGRAPHY - BILATERAL DIAGNOSTIC REASON FOR EXAM: Male, 73 years old. Left axillary pain and palpable abnormality. PERTINENT HISTORY: Non-contributory. TECHNIQUE: Digital bilateral breast kari (3D mammographic acquisition) in the CC and MLO projections. 2-D mediolateral oblique (MLO) and craniocaudad (CC) views of both breasts were obtained. CAD: Full Field Digital Mammography with Computer Added Detection was performed. COMPARISON: None. Baseline examination. FINDINGS: Breast Composition: The breasts are almost entirely fatty. There are no dominant masses or suspicious calcifications. No other significant abnormalities are identified. BI/DIAG MAMM W/CAD, BILAT IMPRESSION: Negative diagnostic mammogram. With the patient's history of a palpable abnormality in the left axillary region, correlation with ultrasound is recommended. ASSESSMENT CATEGORY: BIRADS Category 0: Incomplete. Need additional imaging evaluation. A letter regarding these results will be sent to the patient by the facility within 30 days. Approximately 10% of breast cancers are not detected by mammography. A normal mammogram should not delay biopsy of a clinically suspicious abnormality. Electronically Signed: Yordan Lamb MD at 10:13 EST Tel [phone], Service support ,
--- NOTE | 2018-11-17 08:57 | US_ITS ---
STUDY: ULTRASOUND BREAST - LEFT REASON FOR EXAM: Male, 73 years old. Palpable lump left breast. TECHNIQUE: Axial and longitudinal images of the LEFT breast were performed with a high resolution ultrasound transducer. COMPARISON: Comparison is made with prior mammogram done earlier today. FINDINGS: LEFT Breast: There is a 1.7 cm x 0.8 cm x 0.6 cm lymph node at the 1:00 position of the breast at 8 cm from nipple. There is also evidence of a 9 mm x 5 mm x 4 mm lymph node deep in the axillary region. US/Breast Limited Unilateral IMPRESSION: 1.7 cm x 0.8 cm x 0.6 cm lymph node at the 1:00 position of breast at 8 cm from nipple. ASSESSMENT CATEGORY: BIRADS Category 2: Benign. A letter regarding these results will be sent to the patient by the facility within 30 days. Electronically Signed: Yordan Lamb MD at 12:36 EST Tel [phone], Service support ,
== END ==
PROVIDERS: Family Provider Nurse Practitioner; PCP Nurse Practitioner; Referring Provider Nurse Practitioner; Visit Provider Nurse Practitioner
DX: Z12.31 Encounter for screening mammogram for malignant neoplasm of breast (principal); N64.4 Mastodynia
CPT/HCPCS: 76642; 77062; 77066; G0279

== ENCOUNTER → 2019-01-24 06:55 | Outpatient (CLI) | payer MEDICARE, OTHER, SELFPAY ==
--- NOTE | 2019-01-24 10:31 | NEURO ---
NCS and/or EMG Patient Report Ordering Doctor: Elva Villatoro DATE OF SERVICE: 01/24/19 This is a elective his like study of the left upper extremity performed on this 73-year-old male with numbness in the left arm approximately 2 months. The patient reports diffuse muscle atrophy in his entire body and reports a history of prediabetes although he says his hemoglobin A1c is approximately 5. Left upper extremity nerve conduction study is performed. The ulnar motor distal latency is prolonged across the elbow with reduced amplitude across the elbow but intact conduction velocity. The median motor and sensory response is normal and the radial sensory response is normal. Left ulnar F-wave latency is mildly prolonged. Left upper extremity needle electromyography is performed. Muscles evaluated included the first dorsal interosseous, abductor pollicis brevis, brachioradialis, biceps, triceps and deltoid muscles. All muscles demonstrated normal insertional activity with absence of pathologic spontaneous activity with the exception of the first dorsal interosseous muscle which did demonstrate fibrillation potentials in early recruitment. There is no radicular pattern and other C8 muscles are normal. Impression: This is an abnormal electrophysiologic study of the left upper extremity consistent with ulnar neuropathy across the elbow.
== END ==
PROVIDERS: Family Provider Nurse Practitioner; PCP Nurse Practitioner; Referring Provider Nurse Practitioner; Visit Provider Nurse Practitioner
DX: M79.622 Pain in left upper arm (principal)
CPT/HCPCS: 95886; 95910

== ENCOUNTER → 2019-02-21 10:48 | Outpatient (CLI) | payer MEDICARE, OTHER, SELFPAY ==
[2019-02-22 17:00] LABS: Myoglobin, Serum < 21 ng/mL (28-72)
== END ==
PROVIDERS: Family Provider Nurse Practitioner; PCP Nurse Practitioner; Referring Provider Nurse Practitioner; Visit Provider Nurse Practitioner
DX: R07.89 Other chest pain (principal)
CPT/HCPCS: 36415; 83874; 84484

== ENCOUNTER 2019-03-02 20:42 | Emergency (ER) | payer MEDICARE, OTHER, SELFPAY ==
[2019-03-02 20:42] VITALS: BP 165/70; PULSE 81; RESP 14; TEMP 36.6; O2SAT 98; BMI 27.8
--- NOTE | 2019-03-02 22:07 | ED.DCSUM_ITS ---
- ER Visit Summary Date of Service: 03/02/19 Chief Complaint: Swelling left axilla after a lymph node biopsy History of Present Illness: The patient is a 73 M history of chronic back and neck pain. Reflux. Chronic pain. Today he had a left axillary lymph node biopsy done by Dr. Sun Laws at the [facility]. He was doing well and is developed some swelling there this evening. Mild discomfort. No trouble breathing. No chest pain. No fever. Patient denies being on any blood thinners. Physical Examination: Well-appearing older male. No acute distress. Vital signs are stable and he is afebrile. He does not look septic or toxic. He is in no distress. HEENT exam unremarkable. Neck nontender no lymphadenopathy. Lungs clear to auscultation bilaterally. Heart regular rhythm no murmur rate about 80. Chest wall nontender. Abdomen soft nontender normal bowel sounds no peritoneal signs. Patient is moving all 4 extremities. Neurovascular intact. 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 Normal radial pulse. Left axilla has a biopsy site. A small moderate size hematoma. There is no bleeding from the skin. There is no redness. No warmth. Minimally tender. There is no crepitance or subcu air. Test Results: None Emergency Department Course and Treatment: History and exam are consistent with a postbiopsy hematoma. Treatment Plan: Pressure in the area. Ice the area. Follow-up with Dr. Laws on Tuesday. Return if worse. Disposition: Discharge Impression: Left axillary hematoma status post lymph node biopsy This note was generated with [employer] dictation software. It may contain incorrect words, spelling, and punctuation that were not noted in review of the chart prior to signing ED Disposition - Plan for ED Patient: Referrals: Elva Villatoro, GOVERNMENT SERVICE EXECUTIVE-C [Primary Care Provider] -
--- NOTE | 2019-03-02 22:09 | DCINST.ED_ITS ---
ED Disposition - Plan for ED Patient: Disposition: Home or Assisted Living Instructions: ED Hematoma Referrals: Sun Laws MD [STAFF PHYSICIAN] - 3-5 Days if not improving Additional Instructions: Ice to left armpit and direct pressure. You developed a hematoma which is a collection of blood after the biopsy. This should get better. Call or follow- up with Dr. Sun Laws on Tuesday. If it is getting a lot bigger and a lot worse return to the ER.
== END 2019-03-02 22:31 | disposition home or self-care (01) ==
PROVIDERS: Emergency Provider Emergency Medicine; Family Provider Nurse Practitioner; PCP Nurse Practitioner
DX: L76.82 Other postprocedural complications of skin and subcutaneous tissue (principal)
CPT/HCPCS: 99282

== ENCOUNTER → 2019-07-25 09:02 | Outpatient (CLI) | payer MEDICARE, OTHER, SELFPAY ==
--- NOTE | 2019-07-25 09:20 | RAD_ITS ---
STUDY: AIR-CONTRAST UPPER GI SERIES. REASON FOR EXAM: Male, 74 years old. Dysphagia. Acid reflux. FLUOROSCOPY TIME (if supplied): (0:30) minutes/seconds. 13 images were obtained. TECHNIQUE: The patient ingested barium. Multiple images of the esophagus, stomach and duodenum were obtained. COMPARISON: None. FINDINGS: The esophagus shows evidence of a small sliding hiatal hernia with mild gastroesophageal reflux. There is no evidence of obstruction or mass lesion. The stomach and duodenum are unremarkable. IMPRESSION: Small sliding hiatal hernia with a mild degree of gastroesophageal reflux. Electronically Signed: Yordan Lamb, at 15:48 EDT , Service support , STUDY: X-RAY - ESOPHAGUS (BARIUM SWALLOW) WITH FLUOROSCOPY REASON FOR EXAM: Male, 74 years old. Hiatal hernia and reflux. TECHNIQUE: 11 view(s) of the esophagus were obtained following swallowing of barium. FLUOROSCOPY TIME (if supplied): (0:30) minutes/seconds COMPARISON: Comparison is made with prior study dated April 26, 2017. FINDINGS: There is no demonstrated esophageal foreign body. There is no demonstrated stricture or mucosal abnormality. There is a small hiatal hernia of the fundus of the stomach. Mild degree of gastroesophageal reflux. The patient ingested a 12 mm tablet of barium without any difficulty. There is atherosclerotic tortuosity of the aortic arch and descending thoracic aorta. Normal visualized pulmonary parenchyma. There are degenerative changes of the visualized thoracic spine. RAD/Upper GI w/BA Swallow IMPRESSION: Small sliding hiatal hernia with a mild degree of gastroesophageal reflux. Electronically Signed: Yordan Lamb, at 15:52 EDT , Service support ,
== END ==
PROVIDERS: Family Provider Nurse Practitioner; PCP Nurse Practitioner
DX: R13.14 Dysphagia, pharyngoesophageal phase (principal)
CPT/HCPCS: 74246

== ENCOUNTER → 2019-09-28 14:13 | Outpatient (CLI) | payer MEDICARE, OTHER, SELFPAY ==
--- NOTE | 2019-09-28 14:17 | RAD_ITS ---
STUDY: X-RAY - PELVIS REASON FOR EXAM: Male, 74 years old. Inflammatory polyarthropathy. TECHNIQUE: One view of the pelvis was obtained. COMPARISON: None. FINDINGS: There is a non-specific bowel gas pattern. Normal visualized soft tissue structures. There is narrowing with cortical sclerosis and osteophyte formation of the sacroiliac joint consistent with degenerative osteoarthritic changes. Normal visualized bilateral superior and inferior pubic rami. There are degenerative changes of the pubic symphysis with articular narrowing and sclerosis. Normal ischial tuberosities. Normal visualized right femoral head. There is osteoarthritic spur formation of the right acetabular rim. There is moderate articular joint space narrowing of the right hip. Normal visualized left femoral head. There is osteoarthritic spur formation of the left acetabular rim. There is moderate articular joint space narrowing of the left hip. RAD/Pelvis 1 or 2 Views IMPRESSION: Degenerative disease as described above. No acute fracture or subluxation. Electronically Signed: Socorro Urban MD at 6:56 EST , Service support ,
[2019-09-28 15:54] LABS: Absolute Lymphocyte Count 1.72 X10^3/uL (0.83-4.51); Absolute Neutrophil Count 3.7 X10^3/uL (2.0-7.7); Basophil# 0.06 X10^3/uL; Basophil% 0.9 % (0-1); Eosinophil# 0.29 X10^3/uL; Eosinophils% 4.5 % (0-5); Hematocrit 43.8 % (40-54); Hemoglobin 14.7 g/dL (13.0-16.5); Lymphocyte # 1.72 X10^3/ul (4.0); Lymphocyte % 26.4 % (19-41); Mean Corp Hgb Conc 33.6 g/dL (32-36); Mean Corpuscular Hgb 28.2 pg (27.0-32.0); Mean Corpuscular Volume 84.1 fL (80-94); Monocyte# 0.68 X10^3/uL; Monocyte% 10.4 % (0-10); NRBC Flagged by Analyzer 0 % (0-5); Neutrophil # 3.74 X10^3/uL (2.7-7.7); Neutrophil % 57.5 % (47-70); Platelet Count 232 K/mm3 (150-450); RBC Distribution Width CV 13.8 % (11.6-14.6); RBC Distribution Width SD 42.2 fl (35.1-43.9); Red Blood Count 5.21 M/mm3 (4.6-6.2); White Blood Count 6.5 K/mm3 (4.4-11.0)
[2019-09-28 16:02] LABS: Erythrocyte Sedimentation Rate 8 mm/hr (0-20)
[2019-09-28 16:26] LABS: ALB/GLOB Ratio 1.4 RATIO (0.9-2.4); AST(SGOT) 16 U/L (15-37); Alanine Aminotransfer ALT/SGPT 35 U/L (16-61); Albumin, Serum 4.3 g/dL (3.2-5.0); Alkaline Phosphatase 63 U/L (45-117); Anion Gap 8 (5-15); BUN 11 mg/dL (7-18); CRP < 2.90 mg/L (0.0-3.0); Calcium,Total 8.8 mg/dL (8.5-10.1); Chloride 103 mmol/L (98-107); Creatinine, Serum 0.92 mg/dL (0.70-1.30); EST Glomerular Filtration Rate 85 mL/min (>60); Est Glom Filt Rate - Afr Amer 103 mL/min (>60); Globulin 3.1 g/dL (2.2-4.2); Glucose 103 mg/dL (74-106); Potassium 3.9 mmol/L (3.5-5.1); Protein, Total 7.4 g/dL (6.4-8.2); Rheumatoid Factor < 10.0 IU/mL (<15); Sodium Level 136 mmol/L (136-145)
[2019-10-01 10:27] LABS: Hepatitis B Surface Antibody Non-Reactive; Hepatitis B Surface Antigen Non-Reactive (Nonreactive); Hepatitis C Antibody Non-Reactive (Nonreactive)
[2019-10-03 12:33] LABS: CCP IgG Antibodies 7 units (0-19); HLA B27 Negative (.)
== END ==
PROVIDERS: Family Provider Nurse Practitioner; PCP Nurse Practitioner; Referring Provider Internal Medicine Rheumatology; Visit Provider Internal Medicine Rheumatology
DX: M06.4 Inflammatory polyarthropathy (principal); M47.897 Other spondylosis, lumbosacral region; E11.9 Type 2 diabetes mellitus without complications; G62.9 Polyneuropathy, unspecified; I49.1 Atrial premature depolarization
CPT/HCPCS: 36415; 72170; 80053; 81374; 85025; 85652; 86140; 86200; 86431; 86706; 86803; 87340

== ENCOUNTER → 2020-04-14 15:02 | Outpatient (CLI) | payer MEDICARE, OTHER, SELFPAY ==
[2020-04-14 17:47] LABS: Absolute Lymphocyte Count 1.62 X10^3/uL (0.83-4.51); Absolute Neutrophil Count 2.1 X10^3/uL (2.0-7.7); Basophil# 0.05 X10^3/uL; Basophil% 1.1 % (0-1); Eosinophil# 0.12 X10^3/uL; Eosinophils% 2.8 % (0-5); Hematocrit 42.8 % (40-54); Hemoglobin 14.1 g/dL (13.0-16.5); Lymphocyte # 1.62 X10^3/ul (4.0); Lymphocyte % 37.2 % (19-41); Mean Corp Hgb Conc 32.9 g/dL (32-36); Mean Corpuscular Hgb 28.3 pg (27.0-32.0); Mean Corpuscular Volume 85.9 fL (80-94); Mean Platelet Vol. 9.7 fl (6.2-12.0); Monocyte# 0.47 X10^3/uL; Monocyte% 10.8 % (0-10); NRBC Flagged by Analyzer 0 % (0-5); Neutrophil # 2.09 X10^3/uL (2.7-7.7); Neutrophil % 48.1 % (47-70); Platelet Count 233 K/mm3 (150-450); RBC Distribution Width SD 40.5 fl (35.1-43.9); Red Blood Count 4.98 M/mm3 (4.6-6.2); White Blood Count 4.4 K/mm3 (4.4-11.0)
[2020-04-14 17:59] LABS: ALB/GLOB Ratio 1.3 RATIO (0.9-2.4); AST(SGOT) 15 U/L (15-37); Alanine Aminotransfer ALT/SGPT 32 U/L (16-61); Albumin, Serum 4.3 g/dL (3.2-5.0); Alkaline Phosphatase 65 U/L (45-117); Anion Gap 9 (5-15); BUN 13 mg/dL (7-18); BUN/Creat Ratio 14.2 RATIO (10-20); Calcium,Total 9.1 mg/dL (8.5-10.1); Chloride 98 mmol/L (98-107); Creatinine, Serum 0.92 mg/dL (0.70-1.30); EST Glomerular Filtration Rate 85 mL/min (>60); Est Glom Filt Rate - Afr Amer 103 mL/min (>60); Globulin 3.3 g/dL (2.2-4.2); Glucose 114 mg/dL (74-106); Protein, Total 7.6 g/dL (6.4-8.2); Sodium Level 135 mmol/L (136-145)
== END ==
PROVIDERS: PCP Nurse Practitioner; Referring Provider Internal Medicine Rheumatology; Visit Provider Internal Medicine Rheumatology
DX: M06.4 Inflammatory polyarthropathy (principal); Z79.899 Other long term (current) drug therapy; M47.897 Other spondylosis, lumbosacral region; I49.1 Atrial premature depolarization; E11.40 Type 2 diabetes mellitus with diabetic neuropathy, unspecified
CPT/HCPCS: 36415; 80053; 85025

== ENCOUNTER → 2020-07-10 11:52 | Outpatient (CLI) | payer MEDICARE, OTHER, SELFPAY ==
[2020-07-10 15:08] LABS: Absolute Lymphocyte Count 1.62 X10^3/uL (0.83-4.51); Absolute Neutrophil Count 1.9 X10^3/uL (2.0-7.7); Basophil# 0.05 X10^3/uL; Basophil% 1.2 % (0-1); Eosinophil# 0.12 X10^3/uL; Eosinophils% 2.8 % (0-5); Hematocrit 43.2 % (40-54); Lymphocyte # 1.62 X10^3/ul (4.0); Lymphocyte % 37.9 % (19-41); Mean Corp Hgb Conc 32.4 g/dL (32-36); Mean Corpuscular Hgb 27.3 pg (27.0-32.0); Mean Corpuscular Volume 84.2 fL (80-94); Monocyte# 0.55 X10^3/uL; Monocyte% 12.9 % (0-10); NRBC Flagged by Analyzer 0 % (0-5); Neutrophil # 1.92 X10^3/uL (2.7-7.7); Platelet Count 254 K/mm3 (150-450); RBC Distribution Width CV 12.7 % (11.6-14.6); RBC Distribution Width SD 39.1 fl (35.1-43.9); Red Blood Count 5.13 M/mm3 (4.6-6.2); White Blood Count 4.3 K/mm3 (4.4-11.0)
[2020-07-10 15:21] LABS: ALB/GLOB Ratio 1.3 RATIO (0.9-2.4); AST(SGOT) 17 U/L (15-37); Alanine Aminotransfer ALT/SGPT 27 U/L (16-61); Albumin, Serum 4.2 g/dL (3.2-5.0); Alkaline Phosphatase 54 U/L (45-117); Anion Gap 3 (5-15); BUN 11 mg/dL (7-18); BUN/Creat Ratio 11.1 RATIO (10-20); Calcium,Total 8.9 mg/dL (8.5-10.1); Chloride 103 mmol/L (98-107); Creatinine, Serum 0.99 mg/dL (0.70-1.30); EST Glomerular Filtration Rate 78 mL/min (>60); Est Glom Filt Rate - Afr Amer 95 mL/min (>60); Globulin 3.3 g/dL (2.2-4.2); Glucose 98 mg/dL (74-106); Potassium 4.3 mmol/L (3.5-5.1); Protein, Total 7.5 g/dL (6.4-8.2); Sodium Level 135 mmol/L (136-145)
== END ==
PROVIDERS: PCP Nurse Practitioner; Referring Provider Internal Medicine Rheumatology; Visit Provider Internal Medicine Rheumatology
DX: M06.4 Inflammatory polyarthropathy (principal); M47.897 Other spondylosis, lumbosacral region; E11.40 Type 2 diabetes mellitus with diabetic neuropathy, unspecified; I49.1 Atrial premature depolarization; Z79.899 Other long term (current) drug therapy
CPT/HCPCS: 36415; 80053; 85025

== ENCOUNTER → 2021-01-01 13:15 | Outpatient (CLI) | payer MEDICARE, OTHER, SELFPAY ==
[2021-01-01 15:11] LABS: Absolute Lymphocyte Count 1.66 X10^3/uL (0.83-4.51); Absolute Neutrophil Count 2.2 X10^3/uL (2.0-7.7); Basophil# 0.04 X10^3/uL; Basophil% 0.9 % (0-1); Eosinophil# 0.13 X10^3/uL; Eosinophils% 2.9 % (0-5); Hematocrit 44.5 % (40-54); Hemoglobin 14.4 g/dL (13.0-16.5); Lymphocyte # 1.66 X10^3/ul (4.0); Lymphocyte % 36.6 % (19-41); Mean Corp Hgb Conc 32.4 g/dL (32-36); Mean Corpuscular Hgb 27.3 pg (27.0-32.0); Mean Corpuscular Volume 84.4 fL (80-94); Monocyte# 0.51 X10^3/uL; Monocyte% 11.3 % (0-10); NRBC Flagged by Analyzer 0 % (0-5); Neutrophil # 2.18 X10^3/uL (2.7-7.7); Neutrophil % 48.1 % (47-70); Platelet Count 226 K/mm3 (150-450); RBC Distribution Width SD 40.3 fl (35.1-43.9); Red Blood Count 5.27 M/mm3 (4.6-6.2); White Blood Count 4.5 K/mm3 (4.4-11.0)
[2021-01-01 15:58] LABS: ALB/GLOB Ratio 1.3 RATIO (0.9-2.4); AST(SGOT) 22 U/L (15-37); Alanine Aminotransfer ALT/SGPT 40 U/L (16-61); Albumin, Serum 4.2 g/dL (3.2-5.0); Alkaline Phosphatase 66 U/L (45-117); Anion Gap 7 (5-15); BUN 17 mg/dL (7-18); BUN/Creat Ratio 19.6 RATIO (10-20); Calcium,Total 8.9 mg/dL (8.5-10.1); Chloride 104 mmol/L (98-107); Creatinine, Serum 0.87 mg/dL (0.70-1.30); EST Glomerular Filtration Rate 91 mL/min (>60); Est Glom Filt Rate - Afr Amer 110 mL/min (>60); Globulin 3.3 g/dL (2.2-4.2); Glucose 101 mg/dL (74-106); Potassium 3.9 mmol/L (3.5-5.1); Protein, Total 7.5 g/dL (6.4-8.2); Sodium Level 135 mmol/L (136-145)
== END ==
PROVIDERS: PCP Nurse Practitioner; Referring Provider Internal Medicine Rheumatology; Visit Provider Internal Medicine Rheumatology
DX: M06.4 Inflammatory polyarthropathy (principal); M47.897 Other spondylosis, lumbosacral region; E11.9 Type 2 diabetes mellitus without complications; G62.9 Polyneuropathy, unspecified; I49.1 Atrial premature depolarization; Z79.899 Other long term (current) drug therapy
CPT/HCPCS: 36415; 80053; 85025

== ENCOUNTER → 2021-05-22 15:17 | Outpatient (CLI) | payer MEDICARE, OTHER, SELFPAY ==
--- NOTE | 2021-05-22 15:20 | RAD_ITS ---
HISTORY: SHORTNESS OF BREATH EXAMINATION/TECHNIQUE: XR Chest 2 Views: 2 views COMPARISON: 04/11/17 FINDINGS: LINES/DEVICES: None. LUNGS: No pulmonary consolidation, mass, or edema. No pleural effusion or pneumothorax. MEDIASTINUM AND CARDIOVASCULAR STRUCTURES: Cardiac silhouette not enlarged. Central airways and mediastinal contour are unremarkable. BONES AND SOFT TISSUES: No acute bony abnormalities. RAD/Chest PA and Lateral IMPRESSION: No radiographic evidence of acute cardiopulmonary disease. at 1617 Reported and signed by: Reji Dye MD Electronically Signed: Reji Dye MD at 16:16 EDT Tel , Service support ,
== END ==
PROVIDERS: PCP Nurse Practitioner; Referring Provider Nurse Practitioner; Visit Provider Nurse Practitioner
DX: R06.02 Shortness of breath (principal)
CPT/HCPCS: 71046

== ENCOUNTER → 2021-06-01 09:27 | Outpatient (CLI) | payer MEDICARE, OTHER, SELFPAY | PROVIDERS: PCP Nurse Practitioner; Visit Provider Nurse Practitioner | DX: R00.1 Bradycardia, unspecified (principal) | CPT/HCPCS: 93225; 93226 ==

== ENCOUNTER → 2021-07-01 13:41 | Outpatient (CLI) | payer MEDICARE, OTHER, SELFPAY ==
[2021-07-01 14:53] LABS: Absolute Lymphocyte Count 1.81 X10^3/uL (0.83-4.51); Absolute Neutrophil Count 2.5 X10^3/uL (2.0-7.7); Basophil# 0.05 X10^3/uL; Basophil% 0.9 % (0-1); Eosinophil# 0.39 X10^3/uL; Eosinophils% 7.2 % (0-5); Hematocrit 43.7 % (40-54); Hemoglobin 14.6 g/dL (13.0-16.5); Lymphocyte # 1.81 X10^3/ul (0.83-4.51); Lymphocyte % 33.5 % (19-41); Mean Corp Hgb Conc 33.4 g/dL (32-36); Mean Corpuscular Hgb 28.2 pg (27.0-32.0); Mean Corpuscular Volume 84.5 fL (80-94); Mean Platelet Vol. 9.6 fl (6.2-12.0); Monocyte# 0.67 X10^3/uL; Monocyte% 12.4 % (0-10); NRBC Flagged by Analyzer 0 % (0-5); Neutrophil # 2.48 X10^3/uL (2.7-7.7); Neutrophil % 45.8 % (47-70); Platelet Count 251 K/mm3 (150-450); RBC Distribution Width SD 40.4 fl (35.1-43.9); Red Blood Count 5.17 M/mm3 (4.6-6.2); White Blood Count 5.4 K/mm3 (4.4-11.0)
[2021-07-01 15:16] LABS: ALB/GLOB Ratio 1.2 RATIO (0.9-2.4); AST(SGOT) 20 U/L (15-37); Alanine Aminotransfer ALT/SGPT 39 U/L (16-61); Albumin, Serum 4.3 g/dL (3.2-5.0); Alkaline Phosphatase 71 U/L (45-117); Anion Gap 6 (5-15); BUN 12 mg/dL (7-18); BUN/Creat Ratio 13.9 RATIO (10-20); Calcium,Total 9.4 mg/dL (8.5-10.1); Chloride 104 mmol/L (98-107); Creatinine, Serum 0.86 mg/dL (0.70-1.30); EST Glomerular Filtration Rate 91 mL/min (>60); Est Glom Filt Rate - Afr Amer 110 mL/min (>60); Globulin 3.5 g/dL (2.2-4.2); Glucose 97 mg/dL (74-106); Potassium 3.9 mmol/L (3.5-5.1); Protein, Total 7.8 g/dL (6.4-8.2); Sodium Level 138 mmol/L (136-145)
== END ==
PROVIDERS: PCP Nurse Practitioner; Referring Provider Internal Medicine Rheumatology; Visit Provider Internal Medicine Rheumatology
DX: M06.4 Inflammatory polyarthropathy (principal); M47.897 Other spondylosis, lumbosacral region; E11.9 Type 2 diabetes mellitus without complications; G62.9 Polyneuropathy, unspecified; I49.1 Atrial premature depolarization; Z79.899 Other long term (current) drug therapy
CPT/HCPCS: 36415; 80053; 85025

== ENCOUNTER → 2021-07-03 13:43 | Outpatient (CLI) | payer MEDICARE, OTHER, SELFPAY ==
--- NOTE | 2021-07-03 13:45 | CT_ITS ---
STUDY: CT BRAIN WITH AND WITHOUT CONTRAST REASON FOR EXAM: Male, 76 years old. HEADACHE RADIATION DOSAGE (If Supplied By Facility): CTDIvol = ( 38.43 ) mGy, DLP = ( 1569.48 ) mGycm TECHNIQUE: Transaxial CT imaging of the brain was performed pre and post contrast administration. The examination was performed with intravenous administration of IV 50ML ISOVUE 370. Individualized dose optimization techniques were used for this CT. COMPARISON: None. FINDINGS: Normal soft tissue structures. Normal calvarium. There is mild cerebral atrophy with widening of the extra-axial spaces and ventricular dilatation. Normal white matter tracts of the cerebral hemispheres. Normal basal ganglia and thalami. Normal brainstem. Normal cerebellum. There is no intracranial hemorrhage. There are no findings of an acute ischemic infarction. Atherosclerotic calcification of the vertebral arteries and cavernous portions of the internal carotid arteries bilaterally. Normal visualized paranasal sinuses. CT/Brain/Head W/WO Contrast IMPRESSION: Chronic involutional changes of the brain. Electronically Signed: Yordan Lamb MD at 14:27 EDT , Service support ,
== END ==
PROVIDERS: PCP Nurse Practitioner; Referring Provider Nurse Practitioner; Visit Provider Nurse Practitioner
DX: R51.9 Headache, unspecified (principal)
CPT/HCPCS: 70470; Q9967; A4216

== ENCOUNTER 2021-12-30 13:11 | Outpatient (CLI) | payer MEDICARE, OTHER, SELFPAY ==
[2021-12-30 14:57] LABS: Absolute Lymphocyte Count 1.92 X10^3/uL (0.83-4.51); Absolute Neutrophil Count 2.2 X10^3/uL (2.0-7.7); Basophil# 0.03 X10^3/uL; Basophil% 0.6 % (0-1); Eosinophil# 0.16 X10^3/uL; Eosinophils% 3.3 % (0-5); Hematocrit 44.9 % (40-54); Hemoglobin 14.9 g/dL (13.0-16.5); Lymphocyte # 1.92 X10^3/ul (0.83-4.51); Lymphocyte % 39.1 % (19-41); Mean Corp Hgb Conc 33.2 g/dL (32-36); Mean Corpuscular Hgb 28.3 pg (27.0-32.0); Mean Corpuscular Volume 85.2 fL (80-94); Mean Platelet Vol. 9.7 fl (6.2-12.0); Monocyte# 0.63 X10^3/uL; Monocyte% 12.8 % (0-10); NRBC Flagged by Analyzer 0 % (0-5); Neutrophil # 2.16 X10^3/uL (2.7-7.7); Platelet Count 211 K/mm3 (150-450); RBC Distribution Width CV 13.2 % (11.6-14.6); RBC Distribution Width SD 41.8 fl (35.1-43.9); Red Blood Count 5.27 M/mm3 (4.6-6.2); White Blood Count 4.9 K/mm3 (4.4-11.0)
[2021-12-30 15:11] LABS: ALB/GLOB Ratio 1.2 RATIO (0.9-2.4); AST(SGOT) 24 U/L (15-37); Alanine Aminotransfer ALT/SGPT 46 U/L (16-61); Albumin, Serum 4.1 g/dL (3.2-5.0); Alkaline Phosphatase 65 U/L (45-117); Anion Gap 4 (5-15); BUN 11 mg/dL (7-18); BUN/Creat Ratio 12.6 RATIO (10-20); Calcium,Total 8.7 mg/dL (8.5-10.1); Chloride 102 mmol/L (98-107); Creatinine, Serum 0.87 mg/dL (0.70-1.30); EST Glomerular Filtration Rate 90 mL/min (>60); Est Glom Filt Rate - Afr Amer 109 mL/min (>60); Globulin 3.3 g/dL (2.2-4.2); Glucose 102 mg/dL (74-106); Potassium 4.1 mmol/L (3.5-5.1); Protein, Total 7.4 g/dL (6.4-8.2); Sodium Level 135 mmol/L (136-145)
== END 2021-12-30 23:59 | disposition home or self-care (01) ==
LOC: MTLAB 13:13
PROVIDERS: PCP Nurse Practitioner; Referring Provider Internal Medicine Rheumatology; Visit Provider Internal Medicine Rheumatology
DX: M06.4 Inflammatory polyarthropathy (principal); I49.1 Atrial premature depolarization; Z79.899 Other long term (current) drug therapy; M47.897 Other spondylosis, lumbosacral region
CPT/HCPCS: 36415; 80053; 85025

== ENCOUNTER → 2022-03-31 | Outpatient (CLI) | payer MEDICARE, OTHER, SELFPAY ==
--- NOTE | 2022-03-31 13:31 | STRESSREP ---
Stress Test Report Pharmacologic myocardial perfusion stress test. 77-year-old man with a history of shortness of breath. Resting EKG demonstrates sinus bradycardia with a rate of 57 bpm normal intervals are noted resting blood pressure is 142/80 mmHg. 0.4 mg of regadenoson was infused per usual protocol followed by rapid intravenous saline flush injection continuous EKG monitoring was performed. At rest there were no ST or T wave changes noted to suggest abnormal flow reserve and at peak infusion nonspecific ST changes were noted with did not meet the criteria for ischemia. No clinical angina was noted. The final blood pressure is 142/80 mmHg. Myocardial perfusion protocol. 11.8 mCi of technetium 99m sestamibi was injected 0.4 mg of regadenoson was infused per usual protocol. At peak infusion 32.1 mCi of technetium 99m sestamibi was injected stress images were obtained stress and rest images were reconstructed and compared in the short axis vertical long and horizontal long axis. Gated images were also obtained to Perfusion SPECT analysis: Review of the stress images demonstrate normal uptake of tracer noted in all areas of the myocardium. The resting images similarly demonstrate normal uptake of tracer noted in all areas of the myocardium. No reversibility is noted to suggest ischemia and no previous infarct is noted. Gated SPECT analysis: The gated ejection fraction is 77%. Conclusion: Normal pharmacologic myocardial perfusion stress test. Preserved ejection fraction.
== END | disposition home or self-care (01) ==
LOC: CVS 07:04
PROVIDERS: PCP Nurse Practitioner; Referring Provider Nurse Practitioner; Visit Provider Nurse Practitioner
DX: R06.02 Shortness of breath (principal)
CPT/HCPCS: 78452; 93017; A9500; A4216; J2785

== ENCOUNTER → 2022-06-08 | Outpatient (CLI) | payer MEDICARE, OTHER, SELFPAY ==
--- NOTE | 2022-06-08 15:00 | CT_ITS ---
STUDY: CT Abdomen And Pelvis W/ Contrast Injection 06/08/2022 8:14 PM REASON FOR EXAM: Male, 77 years old. Abdominal pain ABD PAIN Individualized dose optimization techniques were used for this CT. COMPARISON: 10/27/2018. TECHNIQUE: CT Abdomen And Pelvis W/ Contrast Injection Oral and amp; IV Readi-CAT and amp; 100mL Isovue-300 FINDINGS: There are atherosclerotic calcifications of visualized coronary arteries. The visualized portions of the heart are within normal limits. Normal liver. Normal gallbladder and extrahepatic biliary system. There are multiple benign calcified granulomata of the spleen. Normal pancreas. Normal bilateral adrenal glands. No acute findings of the right kidney. No acute findings of the left kidney. Normal visualized stomach. Normal small intestine. There are multiple colonic diverticula consistent with diverticulosis. There is non-visualization of the appendix. There are calcifications of the abdominal aorta. This is consistent for atherosclerotic disease. There is NO abdominal aortic aneurysm. Vascular workup can be obtained based on clinical correlation. Normal inferior vena cava. Subcentimeter mesenteric lymph nodes. There is bilateral neural foraminal stenosis at L4-5 and L5-S1. Normal urinary bladder. There is an umbilical hernia containing fat. There is a right inguinal hernia containing fat. There is no bowel involvement. There is no incarceration. There is no findings suggesting that this is causing a bowel obstruction. There are diffuse degenerative changes of the visualized lumbar spine. There is scoliosis of the lumbar spine. CT/Abdomen/Pelvis WITH Contrast IMPRESSION: (NOT LISTED IN ORDER OF SIGNIFICANCE) There is bilateral neural foraminal stenosis at L4-5 and L5-S1. Other findings as above. Electronically Signed: Peter Martell MD at 20:17 EDT ,
[2022-06-08 15:16] LABS: CREATININE FINGERSTICK < 0.9 mg/dL (0.70-1.30); EGFR FINGERSTICK > 60.0000 mL/min (>60)
== END | disposition home or self-care (01) ==
LOC: CT 14:43
PROVIDERS: PCP Nurse Practitioner Family; Referring Provider Nurse Practitioner Family; Visit Provider Nurse Practitioner Family
DX: R10.9 Unspecified abdominal pain (principal)
CPT/HCPCS: 74177; Q9967

== ENCOUNTER → 2022-06-29 | Outpatient (CLI) | payer MEDICARE, OTHER, SELFPAY ==
--- NOTE | 2022-06-29 12:43 | ECHOD_ITS ---
[id number] ECHO^ECHOD^Echo Complete [id number] Reason For Study: ARRYTHMIA Procedure This was a 2D Doppler, Color Flow transthoracic echocardiogram. The study was technically difficult. Contrast injection was performed. Exam performed in department. Left Ventricle Normal LV size. Moderate concentric left ventricular hypertrophy. Sigmoid septum. Left ventricular systolic function is normal. The estimated ejection fraction is 70 %. No evidence for diastolic dysfunction. No regional wall motion abnormalities noted. Right Ventricle Normal RV size. Normal systolic function. Atria The left atrium is mildly enlarged. Normal right atrium. No doppler evidence for ASD. Mitral Valve There is no mitral annular calcification. Normal mitral valve. Mild-Moderate (1-2+) eccentric mitral valve insufficiency. Tricuspid Valve Normal tricuspid valve. Mild tricuspid valve insufficiency. Right ventricular systolic pressure estimated to be 25 mmHg. Aortic Valve Trisinus/trileaflet aortic valve. Mild diffuse aortic valve thickening. Mild focal aortic valve calcification. Aortic sclerosis, no stenosis. Pulmonic Valve The pulmonic valve is not well visualized. Trivial pulmonic valve insufficiency. Great Vessels Normal sized aortic root. Pericardium/Pleural No pericardial effusion. Medication 22 gauge I.V. with prn adaptor inserted into right arm. Diluted definity 2ml given slow IV push to enhance endocardial definition. MMode/2D Measurements & Calculations IVSd: 1.5 cm LVIDd: 4.1 cm FS: 34.1 % LVIDs: 2.7 cm LVPWd: 1.4 cm ESV(MOD-sp4): 24.1 ml Ao root diam: 3.8 cm LAV(MOD-sp4): 37.6 ml LVAd ap4: 27.0 cm2 SV(MOD-sp4): 48.1 ml SV(sp4-el): 52.7 ml LVLd ap4: 8.0 cm EDV(MOD-sp4): 72.2 ml EDV(sp4-el): 77.0 ml LVAs ap4: 13.7 cm2 LVLs ap4: 6.5 cm ESV(sp4-el): 24.3 ml EF(MOD-sp4): 66.6 % EF(sp4-el): 68.4 % LA A4 area: 17.2 cm2 LA dimension(2D): 4.9 cm RA A4 area: 11.6 cm2 Time Measurements MV dec time: 0.33 sec Doppler Measurements & Calculations MV E max graham: 48.2 cm/sec Lat Peak E' Graham: 9.4 cm/sec MV V2 max: 79.9 cm/sec MV A max graham: 80.5 cm/sec MV max P.6 mmHg MV E/A: 0.60 MV V2 mean: 41.5 cm/sec Med Peak E' Graham: 6.8 cm/sec MV mean P.83 mmHg MV V2 VTI: 26.6 cm Ao V2 max: 103.7 cm/sec LV V1 max P.0 mmHg MV dec slope: 145.5 cm/sec2 Ao max P.3 mmHg LV V1 mean P.4 mmHg Ao V2 mean: 75.3 cm/sec LV V1 max: 100.1 cm/sec Ao mean P.6 mmHg LV V1 mean: 72.6 cm/sec Ao V2 VTI: 24.3 cm LV V1 VTI: 26.8 cm PA V2 max: 89.3 cm/sec TR max graham: 234.7 cm/sec E/E' lat: 5.1 TR max P.0 mmHg E/E' med: 7.1 ECHO/Echo Complete W/ Contrast Interpretation Summary The study was technically difficult. Contrast injection was performed. Left ventricular systolic function is normal. The estimated ejection fraction is 70 %. Moderate concentric left ventricular hypertrophy. Sigmoid septum. The left atrium is mildly enlarged. Mild-Moderate (1-2+) eccentric mitral valve insufficiency. Mild tricuspid valve insufficiency. Aortic sclerosis, no stenosis. Trivial pulmonic valve insufficiency. Right ventricular systolic pressure estimated to be 25 mmHg. No evidence for diastolic dysfunction. Ordering Physician: Murtaza White Referring Physician: Murtaza White Performed By: Aicha Palma RCS
== END | disposition home or self-care (01) ==
LOC: CVS 12:42
PROVIDERS: PCP Nurse Practitioner Family; Referring Provider Internal Medicine Cardiovascular Disease; Visit Provider Internal Medicine Cardiovascular Disease
DX: R06.02 Shortness of breath (principal)
CPT/HCPCS: 93306; Q9957; A4216; C8929

== ENCOUNTER → 2022-07-27 | Outpatient (CLI) | payer MEDICARE, OTHER, SELFPAY ==
[2022-07-27 15:15] LABS: Absolute Neutrophil Count 2.3 X10^3/uL (2.0-7.7); Basophil# 0.05 X10^3/uL; Basophil% 0.9 % (0-1); Eosinophil# 0.18 X10^3/uL; Eosinophils% 3.4 % (0-5); Hematocrit 43.6 % (40-54); Hemoglobin 14.5 g/dL (13.0-16.5); Mean Corp Hgb Conc 33.3 g/dL (32-36); Mean Corpuscular Hgb 27.9 pg (27.0-32.0); Mean Corpuscular Volume 83.8 fL (80-94); Mean Platelet Vol. 9.7 fl (6.2-12.0); Monocyte# 0.61 X10^3/uL; Monocyte% 11.4 % (0-10); NRBC Flagged by Analyzer 0 % (0-5); Neutrophil # 2.32 X10^3/uL (2.7-7.7); Neutrophil % 43.1 % (47-70); Platelet Count 224 K/mm3 (150-450); RBC Distribution Width SD 39.8 fl (35.1-43.9); White Blood Count 5.4 K/mm3 (4.4-11.0)
[2022-07-27 15:38] LABS: Vitamin B12 636 pg/mL (211-911)
[2022-07-27 15:59] LABS: ALB/GLOB Ratio 1.2 RATIO (0.9-2.4); AST(SGOT) 22 U/L (15-37); Alanine Aminotransfer ALT/SGPT 31 U/L (16-61); Alkaline Phosphatase 63 U/L (45-117); Anion Gap 10 (5-15); BUN 16 mg/dL (7-18); BUN/Creat Ratio 19.4 RATIO (10-20); Chloride 104 mmol/L (98-107); Creatinine, Serum 0.82 mg/dL (0.70-1.30); EST Glomerular Filtration Rate 96 mL/min (>60); Est Glom Filt Rate - Afr Amer 116 mL/min (>60); Globulin 3.3 g/dL (2.2-4.2); Glucose 97 mg/dL (74-106); Protein, Total 7.3 g/dL (6.4-8.2); Sodium Level 138 mmol/L (136-145)
== END | disposition home or self-care (01) ==
LOC: MTLAB 13:38
PROVIDERS: PCP Nurse Practitioner Family; Referring Provider Internal Medicine Rheumatology; Visit Provider Internal Medicine Rheumatology
DX: M06.4 Inflammatory polyarthropathy (principal); E11.40 Type 2 diabetes mellitus with diabetic neuropathy, unspecified; M47.897 Other spondylosis, lumbosacral region; I49.1 Atrial premature depolarization; Z79.899 Other long term (current) drug therapy
CPT/HCPCS: 36415; 80053; 82607; 82746; 85025

== ENCOUNTER → 2023-01-19 | Outpatient (CLI) | payer MEDICARE, OTHER, SELFPAY ==
[2023-01-19 15:40] LABS: Absolute Lymphocyte Count 2.13 X10^3/uL (0.83-4.51); Absolute Neutrophil Count 2.5 X10^3/uL (2.0-7.7); Basophil# 0.07 X10^3/uL; Basophil% 1.3 % (0-1); Eosinophil# 0.15 X10^3/uL; Eosinophils% 2.7 % (0-5); Hematocrit 45.5 % (40-54); Lymphocyte # 2.13 X10^3/ul (0.83-4.51); Lymphocyte % 38.7 % (19-41); Mean Corpuscular Hgb 28.1 pg (27.0-32.0); Mean Corpuscular Volume 85.4 fL (80-94); Mean Platelet Vol. 10.3 fl (6.2-12.0); Monocyte# 0.64 X10^3/uL; Monocyte% 11.6 % (0-10); NRBC Flagged by Analyzer 0 % (0-5); Neutrophil % 45.5 % (47-70); Platelet Count 208 K/mm3 (150-450); RBC Distribution Width CV 13.2 % (11.6-14.6); RBC Distribution Width SD 40.7 fl (35.1-43.9); Red Blood Count 5.33 M/mm3 (4.6-6.2); White Blood Count 5.5 K/mm3 (4.4-11.0)
[2023-01-19 16:11] LABS: ALB/GLOB Ratio 1.4 RATIO (0.9-2.4); AST(SGOT) 15 U/L (15-37); Alanine Aminotransfer ALT/SGPT 27 U/L (16-61); Albumin, Serum 4.2 g/dL (3.2-5.0); Alkaline Phosphatase 59 U/L (45-117); Anion Gap 10 (5-15); BUN 15 mg/dL (7-18); BUN/Creat Ratio 16.4 RATIO (10-20); Calcium,Total 9.4 mg/dL (8.5-10.1); Chloride 102 mmol/L (98-107); Creatinine, Serum 0.91 mg/dL (0.70-1.30); EST Glomerular Filtration Rate 85 mL/min (>60); Est Glom Filt Rate - Afr Amer 103 mL/min (>60); Globulin 3.1 g/dL (2.2-4.2); Glucose 103 mg/dL (74-106); Potassium 3.8 mmol/L (3.5-5.1); Protein, Total 7.3 g/dL (6.4-8.2); Sodium Level 138 mmol/L (136-145)
== END | disposition home or self-care (01) ==
LOC: MTLAB 12:35
PROVIDERS: PCP Nurse Practitioner Family; Referring Provider Internal Medicine Rheumatology; Visit Provider Internal Medicine Rheumatology
DX: M06.4 Inflammatory polyarthropathy (principal); M47.897 Other spondylosis, lumbosacral region; Z79.899 Other long term (current) drug therapy
CPT/HCPCS: 36415; 80053; 85025

== ENCOUNTER → 2023-05-05 | Outpatient (CLI) | payer MEDICARE, OTHER, SELFPAY ==
[2023-05-05 17:01] LABS: ALB/GLOB Ratio 1.2 RATIO (0.9-2.4); AST(SGOT) 23 U/L (15-37); Alanine Aminotransfer ALT/SGPT 33 U/L (16-61); Albumin, Serum 4.4 g/dL (3.2-5.0); Alkaline Phosphatase 69 U/L (45-117); Anion Gap 8 (5-15); BUN 15 mg/dL (7-18); BUN/Creat Ratio 16.6 RATIO (10-20); CRP < 2.90 mg/L (0.0-3.0); Calcium,Total 9.2 mg/dL (8.5-10.1); Chloride 99 mmol/L (98-107); Creatinine, Serum 0.91 mg/dL (0.70-1.30); EST Glomerular Filtration Rate 86 mL/min (>60); Est Glom Filt Rate - Afr Amer 104 mL/min (>60); Globulin 3.6 g/dL (2.2-4.2); Glucose 103 mg/dL (74-106); Potassium 4.1 mmol/L (3.5-5.1); Sodium Level 133 mmol/L (136-145)
[2023-05-05 17:11] LABS: Erythrocyte Sedimentation Rate 4 mm/hr (0-20)
[2023-05-09 15:09] LABS: Albumin 4.3 g/dL (2.9-4.4); Alpha-1-Globulins 0.2 g/dL (0.0-0.4); Alpha-2-Globulins 0.8 g/dL (0.4-1.0); Cytoplasmic Ab (C-ANCA) <1:20 titer (Neg:<1:20); Endomysial Antibody IgA Negative (Negative); Gamma Globulin 1.1 g/dL (0.4-1.8); Immunoglobulin A 146 mg/dL (61-437); Immunoglobulin G 1006 mg/dL (603-1613); Immunoglobulin M 71 mg/dL (15-143); PROEL- TOTAL PROTEIN 7.4 g/dL (6.0-8.5); Perinuclear Ab (P-ANCA) <1:20 titer (Neg:<1:20); t-Transglutaminase IgA <2 U/mL (0-3)
[2023-05-09 16:09] LABS: Anti-Centromere B Ab <0.2 AI (0.0-0.9); Anti-Chromatin <0.2 AI (0.0-0.9); Anti-Jo <0.2 AI (0.0-0.9); Anti-Scleroderma-70 AB <0.2 AI (0.0-0.9); Anti-dsDNA Ab <1 IU/mL (0-9); RNP Ab <0.2 AI (0.0-0.9); SJOGREN'S Anti-SS-A test < 0.2 AI (0.0-0.9); SJOGREN'S Anti-SS-B test < 0.2 AI (0.0-0.9); Smith Ab <0.2 AI (0.0-0.9)
== END | disposition home or self-care (01) ==
LOC: LAB 15:14
PROVIDERS: PCP Nurse Practitioner Family; Visit Provider Internal Medicine Gastroenterology
DX: R10.9 Unspecified abdominal pain (principal); R00.1 Bradycardia, unspecified
CPT/HCPCS: 36415; 80053; 82784; 83516; 84165; 84443; 85652; 86140; 86225; 86235; 86255; 86256; 86334

== ENCOUNTER → 2023-05-25 | Outpatient (CLI) | payer MEDICARE, OTHER, SELFPAY ==
--- NOTE | 2023-05-25 09:35 | NM_ITS ---
INDICATION: Bloating, TROUBLE BREATHING LAYING DOWN, FATIGUE EXAMINATION: NUCLEAR MEDICINE GASTRIC EMPTYING - NM Gastric Emptying Study (solid, liquid or both) TECHNIQUE: Radiopharmaceutical (solid portion of the exam): 1.2 mCi of Tc99m Sulfur Colloid mixed with oat meal. Oral administration. Imagin minutes with anterior and posterior imaging COMPARISON: 06/08/2022 FINDINGS: Gastric emptying time with solids: T1/2 measured at 24 minutes, within normal limits. Visually, there is normal passage of isotope from the stomach into the bowel. NM/Gastric Emptying Study IMPRESSION: Normal gastric emptying time with solids. Electronically Signed: Italo Espinoza (Brooks), at 11:15 EDT ,
== END | disposition home or self-care (01) ==
LOC: NM 09:33
PROVIDERS: PCP Nurse Practitioner Family; Referring Provider Internal Medicine Gastroenterology; Visit Provider Internal Medicine Gastroenterology
DX: R14.0 Abdominal distension (gaseous) (principal); R10.9 Unspecified abdominal pain
CPT/HCPCS: 78264; A9541

== ENCOUNTER → 2023-08-02 | Outpatient (CLI) | payer MEDICARE, OTHER, SELFPAY ==
[2023-08-02 15:19] LABS: Absolute Lymphocyte Count 1.78 X10^3/uL (0.83-4.51); Absolute Neutrophil Count 2.2 X10^3/uL (2.0-7.7); Basophil# 0.04 X10^3/uL; Basophil% 0.8 % (0-1); Eosinophil# 0.17 X10^3/uL; Eosinophils% 3.5 % (0-5); Hematocrit 45.3 % (40-54); Hemoglobin 14.6 g/dL (13.0-16.5); Lymphocyte # 1.78 X10^3/ul (0.83-4.51); Lymphocyte % 36.4 % (19-41); Mean Corp Hgb Conc 32.2 g/dL (32-36); Mean Corpuscular Volume 86.8 fL (80-94); Mean Platelet Vol. 9.8 fl (6.2-12.0); Monocyte# 0.66 X10^3/uL; Monocyte% 13.5 % (0-10); NRBC Flagged by Analyzer 0 % (0-5); Neutrophil # 2.23 X10^3/uL (2.7-7.7); Neutrophil % 45.6 % (47-70); Platelet Count 213 K/mm3 (150-450); RBC Distribution Width CV 13.4 % (11.6-14.6); RBC Distribution Width SD 42.4 fl (35.1-43.9); Red Blood Count 5.22 M/mm3 (4.6-6.2); White Blood Count 4.9 K/mm3 (4.4-11.0)
[2023-08-02 16:34] LABS: ALB/GLOB Ratio 1.2 RATIO (0.9-2.4); AST(SGOT) 17 U/L (15-37); Alanine Aminotransfer ALT/SGPT 34 U/L (16-61); Alkaline Phosphatase 61 U/L (45-117); Anion Gap 6 (5-15); BUN 15 mg/dL (7-18); BUN/Creat Ratio 15.4 RATIO (10-20); Chloride 104 mmol/L (98-107); Creatinine, Serum 0.98 mg/dL (0.70-1.30); EST Glomerular Filtration Rate 79 mL/min (>60); Est Glom Filt Rate - Afr Amer 95 mL/min (>60); Globulin 3.2 g/dL (2.2-4.2); Glucose 108 mg/dL (74-106); Potassium 4.1 mmol/L (3.5-5.1); Protein, Total 7.2 g/dL (6.4-8.2); Sodium Level 136 mmol/L (136-145)
== END | disposition home or self-care (01) ==
LOC: MTLAB 13:14
PROVIDERS: PCP Nurse Practitioner Family; Referring Provider Internal Medicine Rheumatology; Visit Provider Internal Medicine Rheumatology
DX: M06.4 Inflammatory polyarthropathy (principal); M47.897 Other spondylosis, lumbosacral region; Z79.899 Other long term (current) drug therapy
CPT/HCPCS: 36415; 80053; 85025

== ENCOUNTER → 2023-09-07 | Outpatient (CLI) | payer MEDICARE, OTHER, SELFPAY ==
[2023-09-07 15:16] LABS: T4 Free Direct 0.89 ng/dL (0.76-1.46); Thyroid Stim Hormone (TSH) 2.36 uIU/mL (0.358-3.74)
== END | disposition home or self-care (01) ==
LOC: LAB 13:58
PROVIDERS: PCP Nurse Practitioner Family; Referring Provider Nurse Practitioner Family; Visit Provider Nurse Practitioner Family
DX: R00.1 Bradycardia, unspecified (principal); R53.83 Other fatigue
CPT/HCPCS: 36415; 84439; 84443; 84481

== ENCOUNTER → 2024-01-18 | Outpatient (CLI) | payer MEDICARE, OTHER, SELFPAY ==
--- NOTE | 2024-01-18 14:22 | RAD_ITS ---
STUDY: X-RAY - ABDOMEN/PELVIS REASON FOR EXAM: Male, 78 years old. abd pain TECHNIQUE: Frontal views COMPARISON: None. FINDINGS: Normal visualized lung bases. There is an unremarkable bowel gas pattern. There is no demonstrated free abdominal air. The visualized liver, spleen and kidneys are grossly normal in size and morphology. Calcified aorta. Normal soft tissue structures. Scoliosis. RAD/Abdomen Single View IMPRESSION: No sign of bowel obstruction. Electronically Signed: Quinten Farr DO at 0:00 EDT ,
== END | disposition home or self-care (01) ==
LOC: RAD 14:05
PROVIDERS: PCP Nurse Practitioner Family; Referring Provider Internal Medicine Gastroenterology; Visit Provider Internal Medicine Gastroenterology
DX: R10.84 Generalized abdominal pain (principal)
CPT/HCPCS: 74018

== ENCOUNTER → 2024-01-24 | Outpatient (CLI) | payer MEDICARE, OTHER, SELFPAY ==
--- NOTE | 2024-01-24 14:55 | CT_ITS ---
STUDY: CT ABDOMEN AND PELVIS WITH CONTRAST REASON FOR EXAM: Male, 78 years old. Abdominal pain RADIATION DOSAGE (If Supplied By Facility): CTDIvol = ( 9.31 ) mGy, DLP = ( 774.23 ) mGycm TECHNIQUE: Oral and amp; IV Readi-CAT and amp; 100mL Isovue-300 was administered. Transaxial images were obtained from the dome of the diaphragm to the symphysis pubis in the arterial, nephrographic and excretory phases. Multiplanar coronal and sagittal images were reformatted. Individualized Dose Optimization Techniques Were Used For This CT. COMPARISON: Prior study dated: 07/01/2016 FINDINGS: The visualized lung bases demonstrate calcified mediastinal nodes. No focal infiltrate. The visualized portions of the heart are within normal limits. Coronary calcifications. Few calcified granulomata in the liver. No other focal lesion is seen. Normal gallbladder and extrahepatic biliary system. There are multiple benign calcified granulomata of the spleen. Normal pancreas. Normal bilateral adrenal glands. The stomach is not well distended. Normal small intestine. Diverticulosis without evidence of acute diverticulitis. There is non-visualization of the appendix. There is diffuse atherosclerotic calcification of the abdominal aorta, without a demonstrated aneurysm. No retroperitoneal adenopathy. Normal right kidney. Normal left kidney. Distended urinary bladder. [Prominent prostate. Small right inguinal hernia containing fat. Degenerative changes of the spine worse than the previous exam. CT/Abdomen/Pelvis WITH Contrast IMPRESSION: 1. No focal acute inflammatory process. 2. Diverticulosis without evidence of acute diverticulitis. Electronically Signed: Jon Walker MD at 15:18 EDT ,
[2024-01-24 15:13] LABS: CREATININE FINGERSTICK < 1.0 mg/dL (0.70-1.30); EGFR FINGERSTICK > 60.0000 mL/min (>60)
== END | disposition home or self-care (01) ==
LOC: CT 14:44
PROVIDERS: PCP Nurse Practitioner Family; Referring Provider Internal Medicine Gastroenterology; Visit Provider Internal Medicine Gastroenterology
DX: R10.9 Unspecified abdominal pain (principal); R63.4 Abnormal weight loss
CPT/HCPCS: 74177; Q9967

== ENCOUNTER → 2024-02-23 | Outpatient (CLI) | payer MEDICARE, OTHER, SELFPAY ==
[2024-02-23 18:09] LABS: Absolute Lymphocyte Count 1.66 X10^3/uL (0.83-4.51); Absolute Neutrophil Count 1.9 X10^3/uL (2.0-7.7); Basophil# 0.06 X10^3/uL; Basophil% 1.4 % (0-1); Eosinophil# 0.17 X10^3/uL; Eosinophils% 3.9 % (0-5); Hematocrit 41.5 % (40-54); Hemoglobin 13.8 g/dL (13.0-16.5); Lymphocyte # 1.66 X10^3/ul (0.83-4.51); Lymphocyte % 38.4 % (19-41); Mean Corp Hgb Conc 33.3 g/dL (32-36); Mean Corpuscular Hgb 27.5 pg (27.0-32.0); Mean Corpuscular Volume 82.7 fL (80-94); Mean Platelet Vol. 10.3 fl (6.2-12.0); Monocyte% 11.6 % (0-10); NRBC Flagged by Analyzer 0 % (0-5); Neutrophil # 1.92 X10^3/uL (2.7-7.7); Neutrophil % 44.5 % (47-70); Platelet Count 193 K/mm3 (150-450); RBC Distribution Width CV 13.1 % (11.6-14.6); RBC Distribution Width SD 39.4 fl (35.1-43.9); Red Blood Count 5.02 M/mm3 (4.6-6.2); White Blood Count 4.3 K/mm3 (4.4-11.0)
[2024-02-23 18:22] LABS: ALB/GLOB Ratio 1.3 RATIO (0.9-2.4); AST(SGOT) 13 U/L (15-37); Alanine Aminotransfer ALT/SGPT 24 U/L (16-61); Albumin, Serum 3.9 g/dL (3.2-5.0); Alkaline Phosphatase 68 U/L (45-117); Anion Gap 7 (5-15); BUN 12 mg/dL (7-18); BUN/Creat Ratio 13.1 RATIO (10-20); Calcium,Total 8.8 mg/dL (8.5-10.1); Chloride 105 mmol/L (98-107); Creatinine, Serum 0.92 mg/dL (0.70-1.30); EST Glomerular Filtration Rate 85 mL/min (>60); Est Glom Filt Rate - Afr Amer 102 mL/min (>60); Glucose 155 mg/dL (74-106); Potassium 4.2 mmol/L (3.5-5.1); Protein, Total 6.9 g/dL (6.4-8.2); Sodium Level 136 mmol/L (136-145)
== END | disposition home or self-care (01) ==
LOC: MTLAB 14:28
PROVIDERS: PCP Nurse Practitioner Family; Referring Provider Internal Medicine Rheumatology; Visit Provider Internal Medicine Rheumatology
DX: M06.4 Inflammatory polyarthropathy (principal); Z79.899 Other long term (current) drug therapy
CPT/HCPCS: 36415; 80053; 85025

== ENCOUNTER → 2024-03-29 | Outpatient (CLI) | payer MEDICARE, OTHER, SELFPAY ==
--- NOTE | 2024-03-29 10:09 | RAD_ITS ---
STUDY: X-RAY - RIGHT KNEE REASON FOR EXAM: Male, 79 years old. PAIN TECHNIQUE: 4 views of the right knee. COMPARISON: None. FINDINGS: Normal visualized distal femur. Normal visualized proximal tibia and fibula. Normal proximal tibiofibular articulation. Normal medial femorotibial compartment. There is mild degenerative arthrosis of the lateral femorotibial compartment. There is mild degenerative arthrosis of the patellofemoral articulation. There is chondrocalcinosis of the medial and lateral menisci. There is a tiny knee joint effusion. There are atherosclerotic calcifications. RAD/Knee 4 or More Views IMPRESSION: Mild degenerative arthrosis of the patellofemoral and lateral femorotibial compartments. Chondrocalcinosis of the medial and lateral menisci. Tiny knee joint effusion. Electronically Signed: Dez Hemphill MD at 14:04 EDT ,
--- NOTE | 2024-03-29 10:09 | RAD_ITS ---
STUDY: X-RAY - LEFT KNEE REASON FOR EXAM: Male, 79 years old. Pain. TECHNIQUE: 4 views of the left knee. COMPARISON: None. FINDINGS: Normal visualized distal femur. Normal visualized proximal tibia and fibula. Normal proximal tibiofibular articulation. There is no demonstrated fracture. There is mild degenerative arthrosis of the medial femorotibial compartment. There is mild degenerative arthrosis of the lateral femorotibial compartment. There is mild degenerative arthrosis of the patellofemoral articulation. There is chondrocalcinosis of the medial and lateral menisci. There is a tiny knee joint effusion. There are atherosclerotic calcifications. RAD/Knee 4 or More Views IMPRESSION: Mild tricompartment degenerative arthrosis. Chondrocalcinosis of the medial and lateral menisci. Tiny knee joint effusion. Electronically Signed: Dez Hemphill MD at 13:45 EDT ,
--- NOTE | 2024-03-29 10:10 | RAD_ITS ---
INDICATION: PAIN EXAMINATION/TECHNIQUE: X-RAY - XR Hips Bilateral with Pelvis when performed; 5 Views COMPARISON: Pelvis x-ray dated 09/28/2019. FINDINGS: PELVIC BONES: No displaced fracture, destructive or sclerotic lesions. Note that overlapping bowel shadows may however obscure fine detail. Sacroiliac joints are unremarkable. No widening of the pubic symphysis. HIPS: There is mild degenerative arthrosis of the hip joints bilaterally with mild marginal osteophyte formation. No displaced fracture. SOFT TISSUES: No soft tissue swelling or gas. RAD/Hips B/L min 2 views w/ Pelvis IMPRESSION: Mild degenerative arthrosis of the hip joints bilaterally. No evidence of displaced pelvic or hip fracture. Electronically Signed: Dez Hemphill MD at 11:59 EDT ,
== END | disposition home or self-care (01) ==
LOC: MTRAD 10:07
PROVIDERS: PCP Nurse Practitioner Family; Referring Provider Anesthesiology Pain Medicine; Visit Provider Anesthesiology Pain Medicine
DX: M25.561 Pain in right knee (principal); M25.562 Pain in left knee
CPT/HCPCS: 73521; 73564

== ENCOUNTER → 2024-11-01 | Outpatient (CLI) | payer MEDICARE, OTHER, SELFPAY ==
[2024-11-01 14:47] LABS: Free T3 2.1 pg/mL (2.18-3.98); PSA,Total - Annual Screen 0.78 ng/mL (0.00-4.00); T4 Free Direct 0.98 ng/dL (0.76-1.46)
[2024-11-01 14:51] LABS: Hemoglobin A1c 5.6 % (3.8-5.6)
== END | disposition home or self-care (01) ==
LOC: LAB 13:26
PROVIDERS: PCP Nurse Practitioner Family; Referring Provider Nurse Practitioner Family; Visit Provider Nurse Practitioner Family
DX: R79.89 Other specified abnormal findings of blood chemistry (principal); E11.40 Type 2 diabetes mellitus with diabetic neuropathy, unspecified; Z12.5 Encounter for screening for malignant neoplasm of prostate
CPT/HCPCS: 36415; 83036; 84153; 84439; 84443; 84481; G0103

== ENCOUNTER → 2025-01-17 | Outpatient (CLI) | payer MEDICARE, OTHER, SELFPAY ==
[2025-01-17 17:43] LABS: Absolute Lymphocyte Count 1.86 X10^3/uL (0.83-4.51); Absolute Neutrophil Count 2.4 X10^3/uL (2.0-7.7); Basophil# 0.06 X10^3/uL; Basophil% 1.2 % (0-1); Eosinophil# 0.24 X10^3/uL; Eosinophils% 4.7 % (0-5); Hematocrit 39.2 % (40-54); Hemoglobin 13.3 g/dL (13.0-16.5); Lymphocyte # 1.86 X10^3/ul (0.83-4.51); Lymphocyte % 36.2 % (19-41); Mean Corp Hgb Conc 33.9 g/dL (32-36); Mean Corpuscular Hgb 28.2 pg (27.0-32.0); Mean Corpuscular Volume 83.2 fL (80-94); Mean Platelet Vol. 9.2 fl (6.2-12.0); Monocyte# 0.58 X10^3/uL; Monocyte% 11.3 % (0-10); NRBC Flagged by Analyzer 0 % (0-5); Neutrophil # 2.38 X10^3/uL (2.7-7.7); Neutrophil % 46.2 % (47-70); Platelet Count 276 K/mm3 (150-450); RBC Distribution Width SD 39.5 fl (35.1-43.9); Red Blood Count 4.71 M/mm3 (4.6-6.2); White Blood Count 5.1 K/mm3 (4.4-11.0)
[2025-01-17 19:35] LABS: ALB/GLOB Ratio 1.7 RATIO (0.9-2.4); AST(SGOT) 19 U/L (<=37); Alanine Aminotransfer ALT/SGPT 18 U/L (<=46); Albumin, Serum 4.3 g/dL (3.4-4.8); Alkaline Phosphatase 60 U/L (40-129); Anion Gap 12 (5-15); BUN 15 mg/dL (4-19); BUN/Creat Ratio 15.4 RATIO (10-20); Calcium,Total 9.2 mg/dL (7.6-11.0); Carbon Dioxide 24.8 mmol/L (21.0-32.0); Chloride 101 mmol/L (98-108); Creatinine, Serum 0.94 mg/dL (0.70-1.20); EST Glomerular Filtration Rate 82 (>60); Globulin 2.5 g/dL (2.2-4.2); Glucose 99 mg/dL (70-99); Potassium 4.2 mmol/L (3.3-5.1); Protein, Total 6.7 g/dL (5.9-8.4); Sodium Level 137 mmol/L (133-145)
== END | disposition home or self-care (01) ==
LOC: MTLAB 14:00
PROVIDERS: PCP Nurse Practitioner Family; Referring Provider Internal Medicine Rheumatology; Visit Provider Internal Medicine Rheumatology
DX: M06.4 Inflammatory polyarthropathy (principal); Z79.899 Other long term (current) drug therapy
CPT/HCPCS: 36415; 80053; 85025

== ENCOUNTER → 2025-03-28 | Outpatient (CLI) | payer MEDICARE, OTHER, SELFPAY ==
--- NOTE | 2025-03-28 12:45 | CDU_ITS ---
Reason For Study Reason For Study: Dizziness Rt. Velocities/BP Lt. Velocities/BP Prox CCA 91.2/10.2 cm/sec. Prox CCA 75.6/10.6 cm/sec. Mid CCA 71.6/11.4 cm/sec. Mid CCA 69.5/10.6 cm/sec. Dist CCA 65.4/12.6 cm/sec. Dist CCA 63.4/8.1 cm/sec. Prox ICA 52.3/8.4 cm/sec. Prox ICA 59.1/11.9 cm/sec. Mid ICA 75.7/10.0 cm/sec. Mid ICA 80.9/19.3 cm/sec. Dist ICA 112.5/17.5 cm/sec. Dist ICA 78.7/14.9 cm/sec. Rt. ICA/CCA = 1.6. Lt. ICA/CCA = 1.2. Prox ECA 113.3/0.0 cm/sec. Prox ECA 86.7/4.4 cm/sec. Rt. Vert. 55.6/9.5 cm/sec. Lt. Vert. 48.7/5.3 cm/sec. Right Extracranial There is homogeneous, smooth atherosclerotic plaque noted in the right common carotid artery. There is heterogeneous, irregular atherosclerotic plaque noted in the right internal carotid artery. There is intimal thickening but no significant atherosclerotic plaque noted in the right external carotid artery. Antegrade flow is noted in the right vertebral artery. Left Extracranial There is intimal thickening but no significant atherosclerotic plaque noted in the left common carotid artery. There is heterogeneous, irregular atherosclerotic plaque noted in the left internal carotid artery. There is intimal thickening but no significant atherosclerotic plaque noted in the left external carotid artery. Antegrade flow is noted in the left vertebral artery. Procedure Carotid Duplex 32117. This is a Carotid Duplex examination using B-mode, color flow and specral Doppler. Exam performed in department. VL/Carotid Duplex Ultrasound Interpretation Summary Mild (<50%) stenosis right extracranial internal carotid. Mild (<50%) stenosis left extracranial internal carotid. Patent and antegrade vertebrals bilaterally. Ordering Physician: Shahram Fuller Referring Physician: Shahram Fuller Performed By: Mariposa Zayas RVT
== END | disposition home or self-care (01) ==
LOC: CVS 12:44
PROVIDERS: PCP Nurse Practitioner Family; Referring Provider Nurse Practitioner Family; Visit Provider Nurse Practitioner Family
DX: I65.22 Occlusion and stenosis of left carotid artery (principal); R42 Dizziness and giddiness
CPT/HCPCS: 93880